=== PATIENT | female | born 1940 | race African-American/Black ===

== ENCOUNTER 2017-01-15 04:00 | Observation (INO) ==
[2017-01-15] MEDS ORDERED: SODIUM CHLORIDE 0.45% 1,000 ML IV SCH (15:30)
--- NOTE | 2017-01-15 17:14 | XRay Report ---
Exam: XR chest 2V Indication: Cardiomegaly, chest pain Comparison study: Prior chest radiograph 04/03/2013 Findings: Cardiac silhouette is enlarged, similar to prior. Minimal perihilar and basilar interstitial opacities are noted, which are decreased in prominence from prior but may represent residual atelectasis/scarring versus underlying interstitial edema changes. There is no significant pleural effusion. There is no focal consolidation. There is no pneumothorax. Degenerative changes are noted in both shoulders. There is no acute osseous abnormality. Impression: Similar cardiomegaly and findings suggestive of underlying interstitial scarring. No findings to suggest heart failure/interstitial edema. No definite focal consolidation. PROCEDURE INTERPRETED AT [facility] DEPARTMENT OF RADIOLOGY Final Report Signed by: Malvin Nicolas
[2017-01-15] MEDS ORDERED: MAGNESIUM HYDROXIDE SUSP 30 ML UDCUP PO ONE (18:07)
[2017-01-15] MEDS: MONTELUKAST 10 MG TABLET PO SCH (21:24)
[2017-01-15] MEDS: FERROUS SULFATE 325 MG TABLET PO SCH (21:24)
[2017-01-15] MEDS: METOCLOPRAMIDE 10 MG TABLET PO SCH (21:24)
[2017-01-15] MEDS: POTASSIUM CHLORIDE 20 MEQ TABLET PO SCH (21:24)
[2017-01-15] MEDS: CITRIC ACID/SODIUM CITRATE 30 ML UDCUP PO SCH (21:25)
[2017-01-16] MEDS: ALBUTEROL 2.5 MG/3 ML NEB RESP TX SCH ×4 (02:25→19:19)
[2017-01-16 05:10] LABS: Basophils % 0.2 % (0.0-0.8); Eosinophils # 0.1 10*3/uL (0.0-0.87); Hematocrit 26.3 VOL% (35.7-47.0); Hemoglobin 8.6 GM/DL (12.0-16.0); Immature Granulocytes % 0.2 %; Immature Granulocytes Absolute 0.01 #; Lymphocytes # 1.8 10*3/uL (1.4-4.0); Mean Corpuscular HGB Conc 32.7 GM/DL (32-36); Mean Corpuscular Hemoglobin 30 PG (27-34); Mean Corpuscular Volume 91.3 FL (87-102); Mean Platelet Volume 11.8 FL (9.6-12.0); Monocytes # 0.5 10*3/uL (0.11-0.8); Neutrophils % 61.6 % (38.7-73.9); Platelet Count 161 T/CUMM (130-400); Red Blood Count 2.88 MC/CUMM (3.8-5.5); Red Cell Distribution Width 17.8 % (9.3-17.3); White Blood Count 6.5 T/CUMM (4-12)
[2017-01-16 05:51] LABS: Calcium 9.6 MG/DL (8.5-10.1); Potassium 4.4 MMOL/L (3.5-5.1)
--- NOTE | 2017-01-16 06:29 | Event Note ---
Ms. Lynn was admitted electively last night for hydration in anticipation of left heart possible PCI today. She has new onset cardiomyopathy that I think is likely a combination of hypertension and atrial fibrillation with rapid ventricular response. We repeated labs after hydration her creatinine is stable but her hemoglobin and hematocrit have dropped significantly just since we last saw her. I think given this decline in hemoglobin hematocrit we probably should postpone the heart cath and work this up.
[2017-01-16] MEDS ORDERED: FUROSEMIDE 40 MG/4 ML VIAL IV ONE (06:31)
[2017-01-16] MEDS ORDERED: diphenhydrAMINE CAP 25 MG CAPSULE PO ONE (07:00)
[2017-01-16] MEDS ORDERED: DIAZEPAM 5 MG TABLET PO ONE (07:00)
[2017-01-16 07:21] LABS: % Iron Saturation 17.1 % (18-50); Ferritin 49.2 ng/ml (8-252)
[2017-01-16 08:02] LABS: Sedimentation Rate-Westergren 42 MM/HR (0-30)
--- NOTE | 2017-01-16 08:17 | EKG Report ---
Stationary ECG Study [facility] Test Date: 01/16/2017 7:11:45 AM Pat Name: HAYLEY DEAN Department: Room: 263 Gender: F Finance Attorney: PETRA : 1940 Requested by: Oracio Winkler Order Number: [id number] Reading MD: TULIO HAMMER Intervals [place] Rate: 65 P: 999 IA: 0 QRS: 12 QRSD: 157 T: -60 QT: 430 QTc: 442 Interpretive Statements ATRIAL FIBRILLATION INTRAVENTRICULAR CONDUCTION DELAY POSSIBLE LATERAL MYOCARDIAL INFARCTION, OF INDETERMINATE AGE Electronically Signed On 01-17-17 12:54:35 CDT by TULIO HAMMER [id number]
[2017-01-16] MEDS: POTASSIUM CHLORIDE 20 MEQ TABLET PO SCH ×2 (09:17→22:00)
[2017-01-16] MEDS: ALLOPURINOL 300 MG TABLET PO SCH (09:18)
[2017-01-16] MEDS: ASPIRIN EC 81 MG TABLET PO SCH (09:18)
[2017-01-16] MEDS: LISINOPRIL 20 MG TABLET PO SCH (09:18)
[2017-01-16] MEDS: METOCLOPRAMIDE 10 MG TABLET PO SCH ×2 (09:18→22:00)
[2017-01-16] MEDS: BISOPROLOL/HCTZ 5-6.25 MG TABLET PO SCH (09:18)
[2017-01-16] MEDS: FERROUS SULFATE 325 MG TABLET PO SCH ×2 (09:18→22:00)
[2017-01-16] MEDS: CITRIC ACID/SODIUM CITRATE 30 ML UDCUP PO SCH ×3 (09:19→22:01)
--- NOTE | 2017-01-16 09:44 | Gastrointestinal Consult Note ---
Assessment and Plan (1) Anemia Status: Acute Assessment and plan: 01/16-findings of drop in hemoglobin from baseline (unavailable at this time). Hemoglobin 8.6. No reports of overt bleeding. No prior history of GI bleeding. On Eliquis for recent onset A. fib. Obtain records from [place] for prior endoscopy. Obtain stool for occult blood. Give magnesium citrate for constipation. Plan an addendum to followed by Dr. Morrell. Current Visit: Yes History of Present Illness Chief complaint: Anemia History of present illness: Ms. Lynn is a 77 year old female who was admitted to the hospital electively initially for hydration in preparation for left heart PCI today. Patient is reported to have a new onset of cardiomyopathy as well as recent findings of atrial fibrillation and was going to proceed with heart catheterization this morning however on admission patient was found to have a drop in her hemoglobin. No records available at this time to review regarding baseline blood counts. Patient states she has no prior history of anemia in the past however she is noted to be on iron therapy. She states the only blood transfusion she has had in the past was after surgery. She denies any prior history of GI bleeding in the past. She denies any abdominal pain, nausea or vomiting. She does report that she has lost approximately 30-40 pounds over the last 4 months from decreased appetite. She also reports one episode of dark stools last week but states that these have cleared up since this time. She is noted to be on iron supplements as well as Eliquis which she states was started a month ago for her atrial fibrillation. She also has a history of renal insufficiency. She is noted to have a BUN/creatinine ratio of 27. Her last dose of Eliquis was on yesterday morning per patient. She states that she has never had upper endoscopy done in the past however she did have a colonoscopy done approximately 3 years ago at [place]. She denies any reflux, dysphagia, increased belching or bloating or dyspepsia. Denies any NSAIDs. She denies any nausea or vomiting. She states she has not had a bowel movement 4 days. Iron studies noted to be normal with a mild decrease in saturation is 17.1. Creatinine is noted at 2.6. Normal MCV. Home Medications Medication Instructions Recorded Confirmed Type Albuterol Sulfate 2.5 mg IH Q6HR 01/11/17 01/15/17 History Albuterol Sulfate [Proair HFA] 2 puff INH Q6H PRN 01/11/17 01/15/17 History Allopurinol 300 mg PO DAILY 01/11/17 01/15/17 History Apixaban [Eliquis] 2.5 mg PO BID 01/11/17 01/15/17 History Aspirin [Aspirin EC] 81 mg PO DAILY 01/11/17 01/15/17 History Bisoprol/Hydrochlorothiazide 1 each PO DAILY 01/11/17 01/15/17 History [Bisoprolol-Hctz 5-6.25 mg Tab] Ferrous Sulfate [Iron] 325 mg PO BID 01/11/17 01/15/17 History Furosemide Tab [Lasix Tab] 80 mg PO DAILY 01/11/17 01/15/17 History Lisinopril 20 mg PO DAILY 01/11/17 01/15/17 History Metoclopramide HCl 10 mg PO BID 01/11/17 01/15/17 History Montelukast Tab [Singulair Tab] 10 mg PO BEDTIME 01/11/17 01/15/17 History Potassium Chloride 20 meq PO BID 01/11/17 01/15/17 History hydrALAZINE TAB [Apresoline Tab] 50 mg PO BID 01/11/17 01/15/17 History Allergies Allergy/AdvReac Type Severity Reaction Status Date / Time doxycycline Allergy Severe RASH Unverified 01/11/17 12:07 Medical,Surgical,& Family Hx - Medical History Cardio: History of: Cardiac Dysrhythmia (AFIB), CHF, Hypertension, Cardiovascular Problems (DIASTOLIC DYSFUNCTION, CARDIOMYOPATHY,RBBB,) Neurology: History of: Cerebrovascular Accident Respiratory: History of: COPD Renal: History of: Renal Problems (RENAL INSUFFICIENCY) Gastrointestinal: History of: GERD Musculoskeletal: History of: Osteoporosis, Musculoskeletal Problems (SPINAL STENOSIS) Other: History of: Miscellaneous Medical Problems (GOUT, VENOUS INSUFFICIENCY OF BOTH LOWER EXTREMITIES) - Social History Smoking Status: Never smoker Frequency of Alcohol Use: None Type of Drug Use: None 12 point system: reviewed and no additional remarkable complaints except as stated - Constitutional Constitutional: Present: as per HPI, weight loss - EENT Eyes: Present: as per HPI Ears: Present: as per HPI Nose, mouth and throat: Present: as per HPI - Cardiovascular Cardiovascular: Present: as per HPI - Respiratory Respiratory: Present: as per HPI - Gastrointestinal Gastrointestinal: Present: as per HPI - Genitourinary Genitourinary: Present: as per HPI - Musculoskeletal Musculoskeletal: Present: as per HPI - Neurological Neurological: Present: as per HPI - Psychiatric Psychiatric: Present: as per HPI - Endocrine Endocrine: Present: as per HPI - Hematologic/Lymphatic Hematologic/Lymphatic: Present: as per HPI Exam - Constitutional Vitals: Period Temp Pulse Resp BP Sys/Marie Pulse Ox Last 24 Hr 97.0 F-97.6 F 62-113 16-20 123-150/60-80 96-100 General appearance: normal weight, no acute distress - Head Head exam: Present: normal inspection, normocephalic - Eye Eye exam: Present: other (Lids and conjunctive are unremarkable). Absent: scleral icterus - ENT ENT exam: Present: normal exam, normal oropharynx - Neck Neck exam: Present: normal inspection - Respiratory Respiratory exam: Present: clear to auscultation bilaterally. Absent: rales, rhonchi, wheezes - Cardiovascular Cardiovascular exam: Present: regular rate and rhythm. Absent: diastolic murmur , JVD, systolic murmur - GI/Abdominal GI/Abdominal exam: Present: normal bowel sounds, soft. Absent: ascites, distended, mass, organomegaly, tenderness - Extremities Exam Extremities exam: Present: normal inspection, full ROM - Back Exam Back exam: Present: normal inspection - Neurological Exam Neurological exam: Present: alert, oriented X3 - Psychiatric Psychiatric exam: Present: normal affect, normal mood - Skin Skin exam: Present: normal color, warm, dry Results - Labs CBC & BMP: 01/16/17 04:02 01/16/17 04:02 Lab Results: I have reviewed the past 24 hour labs
[2017-01-16] MEDS ORDERED: MAGNESIUM CITRATE 300 ML BOTTLE PO ONE (09:47)
--- NOTE | 2017-01-16 21:07 | Cardiology Progress Note ---
Assessment and Plan - Time spent with patient Time spent with patient: Greater than 30 minutes (1) Cardiomyopathy Status: Acute Assessment and plan: The patient was to have a heart cath but is been held because of decreased hematocrit, suggesting some GI bleed Plan/recommendation: Discontinue Eliquis GI [id number] GIs assessment Continue medication to control A. fib Will intermittently watch renal insufficiency Watch for any signs or symptoms of heart failure Eventually, after GI status is defined, would consider doing a heart cath The above was discussed with the patient. She voices understanding and agrees with the plan. Current Visit: Yes (2) Atrial fibrillation Status: Acute Current Visit: Yes (3) Chronic anticoagulation Status: Acute Current Visit: Yes (4) Overweight Status: Acute Current Visit: Yes (5) Chronic renal insufficiency, stage III (moderate) Status: Acute Current Visit: Yes (6) Anemia Status: Acute Current Visit: Yes Cardiology - PN: Subj Interval history: No chest pain or shortness of breath. Has not noted blood in the stool or black stool. Exam (Progress Note) - Constitutional Vitals: Period Temp Pulse Resp BP Sys/Marie Pulse Ox Last 24 Hr 97.0 F-98.4 F 62-95 16-20 107-125/55-75 97-100 Exam: HEENT: Pupils equal, reactive to light and accommodation Neck: NoJVD or bruit Lungs clear to auscultation Heart: Regular rhythm rate with normal S1 and S2. Apical S4 Abdomen: No hepatosplenomegaly Spine/extremities: No clubbing, cyanosis, or edema Neuro: Nonfocal Psych: No depression or anxiety Result/EKG - Labs CBC & BMP: 01/16/17 04:02 01/16/17 04:02 Lab Results: I have reviewed the past 24 hour labs Labs: Laboratory Results - last 24 hr 01/16/17 01/16/17 01/16/17 04:02 04:02 06:40 WBC 6.5 RBC 2.88 L Hgb 8.6 L Hct 26.3 L MCV 91.3 MCH 30 MCHC 32.7 RDW 17.8 H Plt Count 161 MPV 11.8 Neut % (Auto) 61.6 Lymph % (Auto) 28.0 Adams % (Auto) 8.0 Eos % (Auto) 2.0 Baso % (Auto) 0.2 Neut # (Auto) 4.0 Lymph # (Auto) 1.8 Adams # (Auto) 0.5 Eos # (Auto) 0.1 Baso # (Auto) 0.0 Immature Gran % 0.2 Nucleated RBC % 0.0 Immature Gran # 0.01 Nucleated RBCs # 0.00 ESR Westergren 42 H Absolute Retic 0.0 Percent Retic 1.4 Retic Hgb Equivalent 30.1 Sodium 143 Potassium 4.4 Chloride 104 Carbon Dioxide 30 Anion Gap 13.4 BUN 71 H Creatinine 2.60 H GFR Calculation 25 BUN/Creatinine Ratio 27.00 H Glucose 79 Calculated Osmolality 304.0 Calcium 9.6 Iron TIBC % Saturation Ferritin 01/16/17 06:40 WBC RBC Hgb Hct MCV MCH MCHC RDW Plt Count MPV Neut % (Auto) Lymph % (Auto) Adams % (Auto) Eos % (Auto) Baso % (Auto) Neut # (Auto) Lymph # (Auto) Adams # (Auto) Eos # (Auto) Baso # (Auto) Immature Gran % Nucleated RBC % Immature Gran # Nucleated RBCs # ESR Westergren Absolute Retic Percent Retic Retic Hgb Equivalent Sodium Potassium Chloride Carbon Dioxide Anion Gap BUN Creatinine GFR Calculation BUN/Creatinine Ratio Glucose Calculated Osmolality Calcium Iron 50 TIBC 292 % Saturation 17.1 L Ferritin 49.2
[2017-01-16] MEDS: MONTELUKAST 10 MG TABLET PO SCH (22:00)
[2017-01-17] MEDS: ALBUTEROL 2.5 MG/3 ML NEB RESP TX SCH ×4 (00:29→20:00)
[2017-01-17 09:40] LABS: Hematocrit 27.4 VOL% (35.7-47.0); Hemoglobin 8.6 GM/DL (12.0-16.0)
[2017-01-17] MEDS: CITRIC ACID/SODIUM CITRATE 30 ML UDCUP PO SCH ×3 (09:57→20:50)
--- NOTE | 2017-01-17 13:39 | History and Physical Update ---
History and Physical Update - History and Physical H&P was reviewed, the patient examined and there: are no changes in the patients condition since last H&P was completed. - Physical Exam Mental Status: alert and oriented Heart: regular rate and rhythm Lung: clear to auscultation Abdomen: within normal limits Vitals: within normal limits
--- NOTE | 2017-01-17 13:51 | Operative Note ---
Date of procedure: 01/17/17 Pre-op diagnosis: Anemia, GI bleed with melena Procedure: Procedure: Esophagogastroduodenoscopy with biopsies gastric ulcers Brief clinical abstract: Patient is a 77-year-old female who is had recent weakness and noted to be anemic. She describes recent black stools over the last week. She had documented occult blood in her stool. Indication for procedure: GI bleed with melena Endoscopic findings:[After informed consent was obtained, the patient was placed in the left lateral decubitus position. The gastroscope was inserted in the upper esophagus under direct vision with no resistance encountered. Esophageal mucosa appeared normal with squamocolumnar junction sharply demarcated above a small hiatal hernia 1 cm in length. The endoscope was advanced in the stomach which was carefully examined including retroflexed view of the cardia and fundus. In the gastric antrum there were 5 or 6 superficial white based ulcers ranging in size from 5 mm to 1 cm diameter. No visible vessel was associated with these and there was no mass-effect evident. Biopsies were obtained from the margin and base from several of the ulcers for pathologic examination. Remainder the stomach appeared normal. No blood was noted in the stomach. The pyloric channel, duodenal bulb, second and third portion of the duodenum were normal. The endoscope was withdrawn and patient appeared to tolerate the procedure well. Impression: #1 small hiatal hernia #2 multiple gastric antral ulcers-probable source of bleeding; appearance suggests low risk of active type bleeding Recommendations: Continue PPI therapy await pathology from above. Ask about nonsteroidal use and have her discontinue if taking. Anesthesia: MAC Surgeon / Physician: Jozef Morrell Estimated blood loss: minimal Specimens: other (Gastric ulcers) Condition: stable Disposition: post procedure unit Results - Labs CBC & BMP: 01/17/17 09:28 01/16/17 04:02 Discharge Plan - Discharge Medications No Action Albuterol Sulfate [Proair HFA] 2 puff INH Q6H PRN PRN Reason: Shortness Of Breath/Wheezing hydrALAZINE TAB [Apresoline Tab] 50 mg PO BID Potassium Chloride 20 meq PO BID Montelukast Tab [Singulair Tab] 10 mg PO BEDTIME Lisinopril 20 mg PO DAILY Furosemide Tab [Lasix Tab] 80 mg PO DAILY Ferrous Sulfate [Iron] 325 mg PO BID Aspirin [Aspirin EC] 81 mg PO DAILY Apixaban [Eliquis] 2.5 mg PO BID Allopurinol 300 mg PO DAILY Metoclopramide HCl 10 mg PO BID Bisoprol/Hydrochlorothiazide [Bisoprolol-Hctz 5-6.25 mg Tab] 1 each PO DAILY Albuterol Sulfate 2.5 mg IH Q6HR - Follow Up or Referral - Forms/Instructions
--- NOTE | 2017-01-17 13:54 | Anesthesia Post-Op ---
Anesthesia Post OP - Post Ansesthetic Evaluation Patient seen in post op: Yes Resp: within normal limits CV: within normal limits Mental: within normal limits Temp: within normal limits Ierd-[id number]-Wurgkqnff: within normal limits Nausea and Vomiting: within normal limits Pain: within normal limits
[2017-01-17] MEDS ORDERED: GLYCOPYRROLATE 0.4 MG/2 ML VIAL IV ONE ×2 (14:00)
[2017-01-17] MEDS ORDERED: ATROPINE 1 MG/10 ML SYRINGE IV ONE (14:15)
--- NOTE | 2017-01-17 14:36 | EKG Report ---
Stationary ECG Study [facility] Test Date: 01/17/2017 2:36:24 PM Pat Name: HAYLEY DEAN Department: Room: 263 Gender: F Pattern Clerk: : 1940 Requested by: Ibrahima Elizabeth Order Number: [id number] Reading MD: TULIO HAMMER Intervals [place] Rate: 43 P: 999 NC: 0 QRS: 54 QRSD: 165 T: -50 QT: 481 QTc: 427 Interpretive Statements UNCERTAIN REGULAR RHYTHM INTRAVENTRICULAR CONDUCTION DELAY Electronically Signed On 01-18-17 17:06:22 CDT by TULIO HAMMER [id number]
[2017-01-17] MEDS: METOCLOPRAMIDE 10 MG TABLET PO SCH ×2 (15:07→20:49)
[2017-01-17] MEDS: BISOPROLOL/HCTZ 5-6.25 MG TABLET PO SCH (15:07)
[2017-01-17] MEDS: LISINOPRIL 20 MG TABLET PO SCH (15:07)
[2017-01-17] MEDS: ASPIRIN EC 81 MG TABLET PO SCH (15:26)
[2017-01-17] MEDS: ALLOPURINOL 300 MG TABLET PO SCH (15:27)
[2017-01-17] MEDS: FERROUS SULFATE 325 MG TABLET PO SCH ×2 (15:27→20:49)
[2017-01-17] MEDS: POTASSIUM CHLORIDE 20 MEQ TABLET PO SCH ×2 (15:27→20:49)
--- NOTE | 2017-01-17 16:55 | Cardiology Progress Note ---
Assessment and Plan - Time spent with patient Time spent with patient: Less than 30 minutes (1) Cardiomyopathy Status: Acute Assessment and plan: See plan of care listed below. Current Visit: Yes (2) Atrial fibrillation Status: Chronic Assessment and plan: See plan of care listed below. Current Visit: Yes Qualifiers: Atrial fibrillation type: persistent Qualified Code(s): I48.1 - Persistent atrial fibrillation (3) Chronic anticoagulation Status: Chronic Assessment and plan: See plan of care listed below. Current Visit: Yes (4) Overweight Status: Chronic Assessment and plan: See plan of care listed below. Current Visit: Yes (5) Chronic renal insufficiency, stage III (moderate) Status: Acute Assessment and plan: See plan of care listed below. Current Visit: Yes (6) Anemia Status: Acute Assessment and plan: See plan of care listed below. Current Visit: Yes (7) GI bleed Status: Acute Assessment and plan: See plan of care listed below. Current Visit: Yes Cardiology - PN: Subj Interval history: PEST CONTROL SERVICE TECHNICIAN: DR. KENYON PCP: DR. BLUE Ms. Lynn is a 77 year old female who was admitted on 01/15/17 electively for hydration in anticipation of left heart cath with possible PCI on 01/16/17. She has new onset cardiomyopathy, likely a combination of hypertension and atrial fibrillation with RVR. Lab work was repeated and she was found to have a significant drop in her H&H. Her cath was postponed and GI was consulted. She underwent EGD today with Dr. Morrell and was found to have a small hiatal hernia and multiple gastric antral ulcers that is suspected to be the probable source of bleeding although the appearance suggests a low risk of active type bleeding. She had an episode of profound bradycardia during EGD today. This could possibly have been a vasovagal response to sedation. We have cut back her beta merissa and will continue to monitor. She is currently asymptomatic with rates in the 40s-50s. Blood pressure is well controlled. ASSESSMENT/PLAN: 1. CARDIOMYOPATHY - Would eventually need to pursue cardiac catheterization to further define her coronary anatomy. 2. ATRIAL FIBRILLATION - This appears to be chronic in nature. She has been on chronic anticoagulation which is being held due to her anemia. Will continue rate control medications. 3. CHRONIC ANTICOAGULATION - On hold due to recent GI bleed with melena. 4. OVERWEIGHT - Chronic. 5. CHRONIC RENAL INSUFFICIENCY, STAGE III - Chronic. Creatinine 2.6. 6. ANEMIA - Eliquis has been stopped. Will continue to hold. 7. GI BLEED - GI has been following. EGD revealed small hiatal hernia and multiple gastric antral ulcers that is suspected to be the probable source of bleeding although the appearance suggests a low risk of active type bleeding. It is recommended we continue PPI therapy and await pathology. It is also recommended she discontinue NSAID use. Exam (Progress Note) - Constitutional Vitals: Period Temp Pulse Resp BP Sys/Marie Pulse Ox Last 24 Hr 96.8 F-98.6 F 35-97 11-21 83-133/35-64 95-100 Exam: General: Present: Appears Well, No Apparent Distress. Pleasant and cooperative. Appears comfortable. HEENT: Present: PERRL, Normocephaly, atraumatic. Mucus Membranes Moist. No jaundice noted. Conjunctiva moist and clear, sclerae anicteric Neck: Present: Supple Neck, Midline Trachea, No Masses, No Bruit, No tenderness Cardiac: Present: Regular Rate and Rhythm, Systolic Murmur, apical S4. Lungs: Present: Clear to auscultation bilaterally, no wheeze, rhonchi, rales. Neuro: Present: Awake, alert, and oriented x3. Moves all extremities well without hemiparesis or paralysis. Grossly Intact. Absent: Resting Tremor, Essential Tremor Abdomen: Present: Soft, Active Bowel Sounds, No Masses, Non-Tender, nondistended. No abdominal bruit or thrill noted. Skin: Present: Clear. Absent: Rash, No skin breakdown. Back: Normal inspection, no vertebral tenderness. Musculoskeletal: Present: No Fluid Collection, No Pain, Normal Range of Motion Extremities: Present: Normal Gait, No Clubbing, No Cyanosis, Upper Extr. Pulses 2+, Lower Extr. Pulses 2+, 3-4+ pitting edema to BLE. Capillary refill less than 3 seconds. Result/EKG - Labs CBC & BMP: 01/17/17 09:28 01/16/17 04:02 Lab Results: I have reviewed the past 24 hour labs Labs: Laboratory Results - last 24 hr 01/17/17 09:28 Hgb 8.6 L Hct 27.4 L - EKG EKG results: interpreted by me EKG shows: bradycardia, atrial fibrillation
[2017-01-17] MEDS: MONTELUKAST 10 MG TABLET PO SCH (20:49)
[2017-01-18] MEDS: ALBUTEROL 2.5 MG/3 ML NEB RESP TX SCH ×3 (00:36→14:00)
[2017-01-18 04:42] LABS: Basophils % 0.4 % (0.0-0.8); Eosinophils # 0.2 10*3/uL (0.0-0.87); Hematocrit 26.5 VOL% (35.7-47.0); Hemoglobin 8.3 GM/DL (12.0-16.0); Immature Granulocytes % 0.2 %; Immature Granulocytes Absolute 0.01 #; Lymphocytes # 1.3 10*3/uL (1.4-4.0); Lymphocytes % 28.2 % (21.3-54.2); Mean Corpuscular HGB Conc 31.3 GM/DL (32-36); Mean Corpuscular Hemoglobin 30 PG (27-34); Mean Corpuscular Volume 95.3 FL (87-102); Monocytes # 0.5 10*3/uL (0.11-0.8); Monocytes % 11.2 % (1.7-12.7); Neutrophils # 2.5 10*3/uL (1.4-7.4); Platelet Count 132 T/CUMM (130-400); Red Blood Count 2.78 MC/CUMM (3.8-5.5); Red Cell Distribution Width 17.6 % (9.3-17.3); White Blood Count 4.5 T/CUMM (4-12)
[2017-01-18 05:08] LABS: Calcium 9.5 MG/DL (8.5-10.1); Magnesium 2.8 MG/DL (1.8-2.4); Osmolality,Calculated 300.1 MOS/KG (273-304); Potassium 4.7 MMOL/L (3.5-5.1); Risk Ratio 2.23; VLDL CHOLESTEROL 9.6 MG/DL
[2017-01-18] MEDS ORDERED: BISOPROLOL/HCTZ 5-6.25 MG TABLET PO SCH (09:00)
[2017-01-18] MEDS: ALLOPURINOL 300 MG TABLET PO SCH (09:32)
[2017-01-18] MEDS: LISINOPRIL 20 MG TABLET PO SCH (09:32)
[2017-01-18] MEDS: METOCLOPRAMIDE 10 MG TABLET PO SCH (09:32)
[2017-01-18] MEDS: FERROUS SULFATE 325 MG TABLET PO SCH (09:32)
[2017-01-18] MEDS: ASPIRIN EC 81 MG TABLET PO SCH (09:32)
[2017-01-18] MEDS: POTASSIUM CHLORIDE 20 MEQ TABLET PO SCH (09:32)
[2017-01-18] MEDS: CITRIC ACID/SODIUM CITRATE 30 ML UDCUP PO SCH (09:33)
--- NOTE | 2017-01-18 10:48 | Gastrointestinal Progress Note ---
Assessment and Plan (1) Anemia Status: Acute Assessment and plan: 01/18-EGD findings noted. Hemoglobin stable at 8.3. No overt bleeding. Tolerating diet. Plan an addendum to followed by Dr. Morrell. 01/16-findings of drop in hemoglobin from baseline (unavailable at this time). Hemoglobin 8.6. No reports of overt bleeding. No prior history of GI bleeding. On Eliquis for recent onset A. fib. Obtain records from [place] for prior endoscopy. Obtain stool for occult blood. Give magnesium citrate for constipation. Plan an addendum to followed by Dr. Morrell. Current Visit: Yes Gastroenterology - PN: Subj Interval history: CC: Anemia, melena Patient is seen awake and alert eating breakfast. States she had an uneventful night. She denies any overt bleeding. Denies any abdominal pain, nausea or vomiting. Her hemoglobin remained stable at 8.3. EGD on yesterday with findings noted of small hiatal hernia and multiple gastric antral ulcers as probable source of bleeding. Abdomen is soft, nontender. ROS: Denies shortness of breath or chest pain Exam (Progress Note) - Constitutional Vitals: Period Temp Pulse Resp BP Sys/Marie Pulse Ox Last 24 Hr 96.7 F-98.6 F 35-89 11-65 83-122/35-69 95-100 - Other Additional findings: General appearance: normal weight, no acute distress - Head Head exam: Present: normal inspection, normocephalic - Eye Eye exam: Present: other (Lids and conjunctive are unremarkable). Absent: scleral icterus - ENT ENT exam: Present: normal exam, normal oropharynx - Neck Neck exam: Present: normal inspection - Respiratory Respiratory exam: Present: clear to auscultation bilaterally. Absent: rales, rhonchi, wheezes - Cardiovascular Cardiovascular exam: Present: regular rate and rhythm. Absent: diastolic murmur , JVD, systolic murmur - GI/Abdominal GI/Abdominal exam: Present: normal bowel sounds, soft. Absent: ascites, distended, mass, organomegaly, tenderness - Extremities Exam Extremities exam: Present: normal inspection, full ROM - Back Exam Back exam: Present: normal inspection - Neurological Exam Neurological exam: Present: alert, oriented X3 - Psychiatric Psychiatric exam: Present: normal affect, normal mood - Skin Skin exam: Present: normal color, warm, dry Results - Labs CBC & BMP: 01/18/17 04:23 01/18/17 04:23 Lab Results: I have reviewed the past 24 hour labs
[2017-01-18] MEDS ORDERED: PANTOPRAZOLE 40 MG TABLET PO SCH (11:00)
--- NOTE | 2017-01-18 11:24 | Pathology Report from [facility] ---
[facility] ACCESSION # : [id number] PATIENT NAME : Hayley Lynn ORDERING DR : ELEONORA MCCARTNEY MD CLINICAL HX: Anemia - Positive stool for occult blood POST-OP DX: Ulceratoin SPECIMEN INFO: Gastric biopsy GROSS DESCRIPTION: The specimen is received in formalin labeled with the patients name and consists of two martinez tissue fragments measuring 0.8 x 0.2 cm collectively. Submitted in one cassette. DIAGNOSIS FOR HAYLEY LYNN: GASTRIC BIOPSIES: Marked chronic antral gastritis, active with ulceration. Special stain POSITIVE for H. pylori. COLLECTED DATE: 01/17/2017 [facility] REPORT DATE: 01/18/2017 ELECTRONICALLY SIGNED BY: Collins Martin M.D. 01/18/2017 - 9:51:15 MTDD
[2017-01-18 11:26] VITALS: BP 120/58
[2017-01-18] MEDS ORDERED: LIDOCAINE 2% 5 ML VIAL ONE (13:36)
[2017-01-18] MEDS ORDERED: ATROPINE 0.4 MG/1 ML VIAL ONE (13:36)
[2017-01-18] MEDS ORDERED: PROPOFOL 200 MG/20 ML VIAL IV ONE (13:36)
[2017-01-18] MEDS ORDERED: GLYCOPYRROLATE 0.4 MG/2 ML VIAL ONE (13:36)
--- NOTE | 2017-01-18 14:52 | Discharge Summary ---
Hospital Course - Hospital Course Hospital Course: PULMONARY FELLOW: DR. KENYON PCP: DR. BLUE Ms. Lynn is a 77 year old female who was admitted on 01/15/17 electively for hydration in anticipation of left heart cath with possible PCI on 01/16/17. She has new onset cardiomyopathy, likely a combination of hypertension and atrial fibrillation with RVR. Lab work was repeated on admission and she was found to have a significant drop in her H&H. Her cath was postponed and GI was consulted. She underwent EGD on 01/17/[address] Morrell and was found to have a small hiatal hernia and multiple gastric antral ulcers that is suspected to be the probable source of bleeding although the appearance suggests a low risk of active type bleeding. She has been placed on a proton pump inhibitor. During her EGD she had an episode of profound bradycardia. It is felt like this was probably a vasovagal response due to pain after the scope. Her beta-merissa dosage was decreased. She did well throughout the night and today. At this time, we will postpone her heart cath and let her follow-up with Dr. Kenyon to discuss rescheduling this. Her H&H is still on the low side but she has been hemodynamically stable. She will follow-up with Dr. Kenyon in 2-3 weeks with CBC, CMP. She has been instructed to watch for any signs of bleeding. She will also be instructed to monitor her heart rate and blood pressure upon discharge and bring this log to her follow-up appointment with Dr. Kenyon. If her heart rate is staying consistently in the 50s or below, she is to contact her patent searcher. Her blood pressure has been well controlled, but we have been holding off on giving her Lasix. She has chronic BLE edema and will need to go home on Lasix; however, we will change her dose to 40mg PO BID and have her hold this if her blood pressure is below 110/70. I have discussed this plan with Ms. Lynn and her family who are present and they have verbalized understanding. At this time, she has met criteria for discharge and is anxious to go home. - Time spent with patient Time with patient DS: Less than 30 minutes Diagnosis - Discharge Diagnosis (1) Cardiomyopathy Status: Acute (2) Atrial fibrillation Status: Chronic (3) Chronic anticoagulation Status: Chronic (4) Overweight Status: Chronic (5) Chronic renal insufficiency, stage III (moderate) Status: Chronic (6) Anemia Status: Acute (7) GI bleed Status: Resolved Specialty Discharge - Follow Up or Referrals Follow up with: Beth Kenyon DO [Physician] - 2 Weeks (Follow up with Dr. Kenyon in 2-3 weeks with CBC and CMP. ) Discharge Plan - Discharge Data Disposition: Disch To Home/Self Care Condition at Discharge: Stable Discharge Diet: heart healthy Activity: resume usual activities as tolerated Hygiene: no restrictions Weight Bearing at Discharge: full weight bearing Driving: no restrictions Contact your physician if you experience:: fever over 101, Difficulty voiding, Redness or swelling, Nausea/Vomiting, Shortness of breath, Bleeding, pain uncontrolled by pain medications - Discharge Medications New Pantoprazole Tab [Protonix Tab] 40 mg PO DAILY #30 tablet Citric Acid/Sodium Citrate [Bicitra] 30 ml PO TID #1 bottle Continue Albuterol Sulfate [Proair HFA] 2 puff INH Q6H PRN PRN Reason: Shortness Of Breath/Wheezing hydrALAZINE TAB [Apresoline Tab] 50 mg PO BID Potassium Chloride 20 meq PO BID Montelukast Tab [Singulair Tab] 10 mg PO BEDTIME Lisinopril 20 mg PO DAILY Ferrous Sulfate [Iron] 325 mg PO BID Aspirin [Aspirin EC] 81 mg PO DAILY Allopurinol 300 mg PO DAILY Metoclopramide HCl 10 mg PO BID Albuterol Sulfate 2.5 mg IH Q6HR Changed Bisoprol/Hydrochlorothiazide [Bisoprolol-Hctz 5-6.25 mg Tab] 0.5 tablet PO DAILY #0 Furosemide Tab [Lasix Tab] 40 mg PO BID #0 Discontinued Apixaban [Eliquis] 2.5 mg PO BID - Follow Up or Referral - Forms/Instructions Exam - Constitutional Vitals: Period Temp Pulse Resp BP Sys/Marie Pulse Ox Last 24 Hr 96.7 F-97.5 F 41-85 16-65 96-122/57-69 96-100 Exam: General: Present: Appears Well, No Apparent Distress. Pleasant and cooperative. Appears comfortable. HEENT: Present: PERRL, Normocephaly, atraumatic. Mucus Membranes Moist. No jaundice noted. Conjunctiva moist and clear, sclerae anicteric Neck: Present: Supple Neck, Midline Trachea, No Masses, No Bruit, No tenderness Cardiac: Present: Regular Rate and Rhythm, Systolic Murmur, apical S4. Lungs: Present: Clear to auscultation bilaterally, no wheeze, rhonchi, rales. Neuro: Present: Awake, alert, and oriented x3. Moves all extremities well without hemiparesis or paralysis. Grossly Intact. Absent: Resting Tremor, Essential Tremor Abdomen: Present: Soft, Active Bowel Sounds, No Masses, Non-Tender, nondistended. No abdominal bruit or thrill noted. Skin: Present: Clear. Absent: Rash, No skin breakdown. Back: Normal inspection, no vertebral tenderness. Musculoskeletal: Present: No Fluid Collection, No Pain, Normal Range of Motion Extremities: Present: Normal Gait, No Clubbing, No Cyanosis, Upper Extr. Pulses 2+, Lower Extr. Pulses 2+, 3+ pitting edema to BLE. Capillary refill less than 3 seconds. Discharge Results Procedures and tests throughout hospitalization: Pending Orders 01/16/17 Occult Blood, Stool Routine 01/19/17 04:00 BMP w/ Mg [Basic Metabolic Panel w/Mg] IN AM CBC [Comp Blood Count Auto Diff] IN AM 01/20/17 04:00 BMP w/ Mg [Basic Metabolic Panel w/Mg] IN AM CBC [Comp Blood Count Auto Diff] IN AM Date of procedure: 01/17/17 Procedure: Esophagogastroduodenoscopy with biopsies gastric ulcers Impression: #1 small hiatal hernia #2 multiple gastric antral ulcers-probable source of bleeding; appearance suggests low risk of active type bleeding Recommendations: Continue PPI therapy await pathology from above. Ask about nonsteroidal use and have her discontinue if taking. Labs on day of discharge: Labs from last 24 hours 01/18/17 01/18/17 01/18/17 11:13 04:23 04:23 WBC 4.5 D RBC 2.78 L Hgb 8.3 L Hct 26.5 L MCV 95.3 MCH 30 MCHC 31.3 L RDW 17.6 H Plt Count 132 MPV 11.0 Neut % (Auto) 56.0 Lymph % (Auto) 28.2 Vance % (Auto) 11.2 Eos % (Auto) 4.0 Baso % (Auto) 0.4 Neut # (Auto) 2.5 Lymph # (Auto) 1.3 L Vance # (Auto) 0.5 Eos # (Auto) 0.2 Baso # (Auto) 0.0 Immature Gran % 0.2 Nucleated RBC % 0.0 Immature Gran # 0.01 Nucleated RBCs # 0.00 Sodium 142 Potassium 4.7 Chloride 103 Carbon Dioxide 32 Anion Gap 11.7 BUN 65 H Creatinine 2.20 H GFR Calculation 31 BUN/Creatinine Ratio 29.00 H Glucose 87 POC Glucose 111 H Calculated Osmolality 300.1 Calcium 9.5 Magnesium 2.8 H Triglycerides 48 Cholesterol 181 LDL Cholesterol 95.0 VLDL Cholesterol 9.6 HDL Cholesterol 81 H Heart Disease Risk Ratio 2.23 DS: Provider Date of admission: 01/15/17 15:18 Primary care physician: . No PCP Attending physician on admission: Beth Kenyon DO Consults: 01/16/17 06:45 Consult to Physician [CONS] Routine Comment: anemia, multifactorial Consulting Provider: Jozef Morrell Consult to Specialist Group: Gastroenterology Person Notified: ONDElvin Date Notified: 01/16/17 Time Notified: 09:15 Discharging clinician: DAVID Adams Expected date of discharge: 01/18/17
== END 2017-01-18 16:04 | disposition home or self-care (01) ==
LOC: N.TELES 15:18 → INTOOBSV 15:18
PROVIDERS: ADMIT Internal Medicine Cardiovascular Disease; ATTEND Internal Medicine Cardiovascular Disease

== ENCOUNTER 2017-01-26 14:46 | Inpatient (IN) ==
[2017-01-26] MEDS ORDERED: ONDANSETRON 4 MG/2 ML VIAL IV PRN ×2 (14:55→14:57)
[2017-01-26] MEDS ORDERED: ZALEPLON 5 MG CAPSULE PO PRN ×2 (14:55→14:57)
[2017-01-26] MEDS ORDERED: MAGNESIUM SULF RIDER 2 GM in PREMIX 1 EACH IV PRN (14:57)
[2017-01-26] MEDS ORDERED: diphenhydrAMINE CAP 25 MG CAPSULE PO PRN (14:57)
[2017-01-26] MEDS ORDERED: MAGNESIUM SULF RIDER 4 GM in PREMIX 1 EACH IV PRN (14:57)
[2017-01-26] MEDS ORDERED: BISACODYL 5 MG TABLET PO PRN (14:57)
--- NOTE | 2017-01-26 16:14 | EKG Report ---
Stationary ECG Study [facility] Test Date: 01/26/2017 4:14:56 PM Pat Name: HAYLEY DEAN Department: Room: 266 Gender: F Car Racer: CONSTANTINO : 1940 Requested by: Oracio Winkler Order Number: [id number] Reading MD: JOLIE NORTH Intervals [place] Rate: 82 P: 999 MT: 0 QRS: -15 QRSD: 160 T: -53 QT: 397 QTc: 435 Interpretive Statements ATRIAL FIBRILLATION RIGHT BUNDLE BRANCH BLOCK MODERATE T-WAVE ABNORMALITY, CONSIDER LATERAL ISCHEMIA Electronically Signed On 01-27-17 15:29:24 CDT by JOLIE NORTH [email or web address]
[2017-01-26] MEDS: METOCLOPRAMIDE 5 MG TABLET PO SCH (16:38)
[2017-01-26] MEDS: FUROSEMIDE 40 MG/4 ML VIAL IV SCH (16:38)
[2017-01-26 16:58] LABS: Basophils % 0.2 % (0.0-0.8); Eosinophils # 0.1 10*3/uL (0.0-0.87); Eosinophils % 2.9 % (0.00-10.9); Hematocrit 26.4 VOL% (35.7-47.0); Hemoglobin 8.4 GM/DL (12.0-16.0); Immature Granulocytes % 0.2 %; Immature Granulocytes Absolute 0.01 #; Lymphocytes # 1.1 10*3/uL (1.4-4.0); Lymphocytes % 22.9 % (21.3-54.2); Mean Corpuscular HGB Conc 31.8 GM/DL (32-36); Mean Corpuscular Hemoglobin 30 PG (27-34); Mean Platelet Volume 11.9 FL (9.6-12.0); Monocytes # 0.5 10*3/uL (0.11-0.8); Monocytes % 9.4 % (1.7-12.7); Neutrophils # 3.1 10*3/uL (1.4-7.4); Neutrophils % 64.4 % (38.7-73.9); Platelet Count 131 T/CUMM (130-400); Red Blood Count 2.81 MC/CUMM (3.8-5.5); Red Cell Distribution Width 17.6 % (9.3-17.3); White Blood Count 4.8 T/CUMM (4-12)
[2017-01-26 17:13] LABS: Calcium 9.9 MG/DL (8.5-10.1); Magnesium 2.3 MG/DL (1.8-2.4); Osmolality,Calculated 285.4 MOS/KG (273-304); Potassium 3.9 MMOL/L (3.5-5.1)
[2017-01-26 17:16] LABS: Albumin 3.3 G/DL (3.4-5.0); Bilirubin,Direct 0.5 MG/DL (0.0-0.20); Bilirubin,Indirect 0.5 MG/DL (0.0-1.0); Total Protein 6.3 G/DL (6.4-8.3)
--- NOTE | 2017-01-26 18:13 | Ultrasound Report ---
Exam: US renal Bilateral Date: 01/26/2017 3:02 PM Indication: Acute renal failure Comparison: None Findings: Right kidney. 10.8 x 5.5 x 5.9 cm. Increased echogenicity is present. No obstruction present Left kidney. 9.1 x 5.5 x 6.3 cm. Increased echogenicity is present. No obstructive present. Impression: 1. Medical renal disease in the kidneys without obstructive uropathy bilaterally Ultrasound images were stored and captured PROCEDURE INTERPRETED AT [facility] DEPARTMENT OF RADIOLOGY Final Report Signed by: Dr. Jozef Dimas
[2017-01-26 18:47] LABS: Apearance,Urine CLEAR (Clear); Bilirubin,Urine Negative (Negative); Blood, Urine Negative (Negative); Glucose,Urine (UA) Negative (Negative); Ketones,Urine Negative (Negative); Nitrite,Urine Negative (Negative); Protein,Urine Negative; Squamous Epithelial Cell,Urine Occasional /HPF (0-10); Urine Color Straw (Yellow); Urine Specific Gravity 1.004 (1.001-1.035); Urine Urobilinogen < 2.0 EU/DL (0.2-1.0)
--- NOTE | 2017-01-26 18:47 | XRay Report ---
Exam: XR chest 2V Date: 01/26/2017 2:57 PM Indication: ADHF Comparison: None Technical: PA lateral Findings: Cardiomegaly is present. External cardiac leads are present. No obvious effusion. Degenerative change present thoracic spine. There is ossification of the costochondral cartilages. No pneumothorax. Impression: 1. Cardiomegaly without overt decompensation. PROCEDURE INTERPRETED AT [facility] DEPARTMENT OF RADIOLOGY Final Report Signed by: Dr. Jozef Dimas
[2017-01-26] MEDS: ALBUTEROL 0.63 MG/3 ML NEB RESP TX SCH (20:18)
[2017-01-26] MEDS: FERROUS SULFATE 325 MG TABLET PO SCH (20:22)
[2017-01-26] MEDS: CARVEDILOL 3.125 MG TABLET PO SCH (20:22)
[2017-01-26] MEDS: DOCUSATE SODIUM 100 MG CAPSULE PO SCH (20:22)
[2017-01-26] MEDS: POTASSIUM CHLORIDE 20 MEQ TABLET PO SCH (20:22)
[2017-01-26] MEDS: CITRIC ACID/SODIUM CITRATE 30 ML UDCUP PO SCH (21:55)
[2017-01-27] MEDS: ALBUTEROL 0.63 MG/3 ML NEB RESP TX SCH ×6 (00:54→23:07)
[2017-01-27 04:05] LABS: Basophils % 0.2 % (0.0-0.8); Eosinophils # 0.2 10*3/uL (0.0-0.87); Eosinophils % 4.7 % (0.00-10.9); Hemoglobin 8.2 GM/DL (12.0-16.0); Immature Granulocytes % 0.2 %; Immature Granulocytes Absolute 0.01 #; Lymphocytes # 0.9 10*3/uL (1.4-4.0); Lymphocytes % 19.5 % (21.3-54.2); Mean Corpuscular HGB Conc 32.8 GM/DL (32-36); Mean Corpuscular Hemoglobin 30 PG (27-34); Mean Corpuscular Volume 92.3 FL (87-102); Mean Platelet Volume 11.9 FL (9.6-12.0); Monocytes # 0.5 10*3/uL (0.11-0.8); Monocytes % 11.2 % (1.7-12.7); Neutrophils # 2.9 10*3/uL (1.4-7.4); Neutrophils % 64.2 % (38.7-73.9); Platelet Count 128 T/CUMM (130-400); Red Blood Count 2.71 MC/CUMM (3.8-5.5); Red Cell Distribution Width 17.7 % (9.3-17.3); White Blood Count 4.5 T/CUMM (4-12)
[2017-01-27 04:29] LABS: Bilirubin,Total 1.5 MG/DL (0.2-1.0); Calcium 9.4 MG/DL (8.5-10.1); Osmolality,Calculated 290.1 MOS/KG (273-304); Potassium 4.1 MMOL/L (3.5-5.1); Total Protein 5.8 G/DL (6.4-8.3)
[2017-01-27] MEDS ORDERED: ASPIRIN EC 81 MG TABLET PO SCH (09:00)
[2017-01-27] MEDS ORDERED: PANTOPRAZOLE 40 MG TABLET PO SCH ×2 (09:00)
[2017-01-27] MEDS: FUROSEMIDE 40 MG/4 ML VIAL IV SCH ×2 (10:34→17:11)
[2017-01-27] MEDS: LISINOPRIL 20 MG TABLET PO SCH (10:37)
[2017-01-27] MEDS: METOCLOPRAMIDE 5 MG TABLET PO SCH ×3 (10:37→17:10)
[2017-01-27] MEDS: ALLOPURINOL 300 MG TABLET PO SCH (10:37)
[2017-01-27] MEDS: FERROUS SULFATE 325 MG TABLET PO SCH ×2 (10:37→21:02)
[2017-01-27] MEDS: POTASSIUM CHLORIDE 20 MEQ TABLET PO SCH ×2 (10:38→21:02)
[2017-01-27] MEDS: DOCUSATE SODIUM 100 MG CAPSULE PO SCH ×2 (10:38→21:02)
[2017-01-27] MEDS: CARVEDILOL 3.125 MG TABLET PO SCH ×2 (10:39→21:02)
[2017-01-27] MEDS: CITRIC ACID/SODIUM CITRATE 30 ML UDCUP PO SCH ×3 (10:46→21:03)
--- NOTE | 2017-01-27 11:27 | Cardiology Progress Note ---
<Kayla López E - Last Filed: 01/27/17 11:46> Assessment and Plan - Time spent with patient Time spent with patient: Less than 30 minutes (1) Acute systolic CHF (congestive heart failure) Status: Acute Assessment and plan: See plan of care listed below. Current Visit: Yes (2) Cardiomyopathy Status: Chronic Assessment and plan: See plan of care listed below. Current Visit: No (3) Atrial fibrillation Status: Chronic Assessment and plan: See plan of care listed below. Current Visit: No Qualifiers: Atrial fibrillation type: persistent Qualified Code(s): I48.1 - Persistent atrial fibrillation (4) Chronic renal insufficiency Status: Acute Assessment and plan: See plan of care listed below. Current Visit: No (5) Anemia Status: Acute Assessment and plan: See plan of care listed below. Current Visit: No (6) COPD (chronic obstructive pulmonary disease) Status: Chronic Assessment and plan: See plan of care listed below. Current Visit: Yes (7) GERD (gastroesophageal reflux disease) Status: Chronic Assessment and plan: See plan of care listed below. Current Visit: Yes (8) Obesity Status: Chronic Assessment and plan: See plan of care listed below. Current Visit: Yes Cardiology - PN: Subj Interval history: Car Hostler: Dr. Monaco PCP: Dr. Donovan Ms. Lynn is a 77-year-old -[place] female with history of persistent atrial fibrillation, cardiomyopathy, diastolic dysfunction, hypertension, prior ischemic stroke, chronic renal insufficiency, bilateral lower extremity venous insufficiency, gout, obesity, COPD, systolic CHF, GERD. Risk factors are significant for: Hypertension, obesity, sedentary lifestyle. She was previously admitted to the hospital on 01/15/17 with anticipation of renal prophylactic saline gently before [facility] on 01/16/17 but was found to be profoundly anemic. Her cath was cancelled and she was found to have multiple antral gastric ulcers and a hiatal hernia. She returned to Dr. Monaco's clinic for follow up on 01/26/17 with dyspnea and edema. She reported 2 pillow orthopnea and difficulty moving her legs due to the heaviness from her edema. She was admitted to the hospital from clinic for diuresis and further workup and treatment of acutely decompensated heart failure and evaluation of worsening anemia with epistaxis. ASSESSMENT/PLAN: 1. ACUTE SYSTOLIC CHF -continue diuretic therapy. Continue beta-merissa and SONAL inhibitor. Nephrology has been consulted for their input regarding her renal insufficiency. 2. CARDIOMYOPATHY, UNSPECIFIED -echocardiogram done 12/08/2016 revealed EF 35%, grade 3 diastolic dysfunction, severe LVH, moderate to severe mitral regurgitation, mild aortic insufficiency, moderate pulmonic regurgitation, and moderate to severe tricuspid regurgitation. She was also noted to have evidence of pulmonary hypertension with PAP 65 mmHg. 3. PERSISTENT ATRIAL FIBRILLATION - She is currently rate controlled. Continue Coreg 3.125mg PO BID. Chronic anticoagulation was previously discontinued due to profound anemia and she continues to be a poor candidate for anticoagulation. 4. CHRONIC RENAL INSUFFICIENCY - Will consult Nephrology for their input. 5. ANEMIA - Will check anemia profile for worsening H&H. Will recheck hemoccult stool. Patient may require blood transfusion if H&H continues to drop. 6. COPD - Continue O2 and breathing treatments PRN. 7. GERD - Continue PPI. 8. OBESITY - Chronic. Dr. Walters to follow with further plan and addendum. Exam (Progress Note) - Constitutional Vitals: Period Temp Pulse Resp BP Sys/Marie Pulse Ox Last 24 Hr 97.3 F-98 F 60-98 17-20 108-154/58-95 91-98 Exam: General: Present: Appears Well, No Apparent Distress. Pleasant and cooperative. Appears comfortable. HEENT: Present: PERRL, Normocephaly, atraumatic. Mucus Membranes Moist. No jaundice noted. Conjunctiva moist and clear, sclerae anicteric Neck: Present: Supple Neck, Midline Trachea, No Masses, No Bruit, No tenderness Cardiac: Present: Regular Rate and Rhythm, Systolic Murmur, no chest wall tenderness Lungs: Present: Few rales noted to left lower lobe, otherwise clear to auscultation. no wheeze, rhonchi. Neuro: Present: Awake, alert, and oriented x3. Moves all extremities well without hemiparesis or paralysis. Grossly Intact. Absent: Resting Tremor, Essential Tremor Abdomen: Present: Soft, Active Bowel Sounds, No Masses, Non-Tender, nondistended. No abdominal bruit or thrill noted. Skin: Present: Clear. Absent: Rash, No skin breakdown. Back: Normal inspection, no vertebral tenderness. Musculoskeletal: Present: No Fluid Collection, No Pain Extremities: Present: Normal Gait, No Clubbing, No Cyanosis, Upper Extr. Pulses 2+, Lower Extr. Pulses 2+, 4+ pitting edema to BLE. Capillary refill less than 3 seconds. Result/EKG - Labs CBC & BMP: 01/27/17 03:21 01/27/17 03:21 Lab Results: I have reviewed the past 24 hour labs Labs: Laboratory Results - last 24 hr 01/26/17 01/26/17 01/26/17 16:26 16:26 16:26 WBC 4.8 RBC 2.81 L Hgb 8.4 L Hct 26.4 L MCV 94.0 MCH 30 MCHC 31.8 L RDW 17.6 H Plt Count 131 MPV 11.9 Neut % (Auto) 64.4 Lymph % (Auto) 22.9 Mills % (Auto) 9.4 Eos % (Auto) 2.9 Baso % (Auto) 0.2 Neut # (Auto) 3.1 Lymph # (Auto) 1.1 L [place] # (Auto) 0.5 Eos # (Auto) 0.1 Baso # (Auto) 0.0 Immature Gran % 0.2 Nucleated RBC % 0.0 Immature Gran # 0.01 Nucleated RBCs # 0.00 Sodium 140 Potassium 3.9 Chloride 102 Carbon Dioxide 32 Anion Gap 9.9 BUN 36 H Creatinine 2.20 H GFR Calculation 31 BUN/Creatinine Ratio 16.00 Glucose 85 Calculated Osmolality 285.4 Calcium 9.9 Magnesium 2.3 Total Bilirubin 1.00 Direct Bilirubin 0.50 H Indirect Bilirubin 0.5 AST 35 ALT 36 Alkaline Phosphatase 173 H Total Protein 6.3 L Albumin 3.3 L Globulin Albumin/Globulin Ratio Urine Color Urine Appearance Urine pH Ur Specific [place] Urine Protein Urine Glucose (UA) Urine Ketones Urine Blood Urine Nitrate Urine Bilirubin Urine Urobilinogen Urine Leukocytes Ur Squamous Epith Cells Ur Culture Indicated? 01/26/17 01/27/17 01/27/17 18:23 03:21 03:21 WBC 4.5 RBC 2.71 L Hgb 8.2 L Hct 25.0 L MCV 92.3 MCH 30 MCHC 32.8 RDW 17.7 H Plt Count 128 L MPV 11.9 Neut % (Auto) 64.2 Lymph % (Auto) 19.5 L [place] % (Auto) 11.2 Eos % (Auto) 4.7 Baso % (Auto) 0.2 Neut # (Auto) 2.9 Lymph # (Auto) 0.9 L [place] # (Auto) 0.5 Eos # (Auto) 0.2 Baso # (Auto) 0.0 Immature Gran % 0.2 Nucleated RBC % 0.0 Immature Gran # 0.01 Nucleated RBCs # 0.00 Sodium 142 Potassium 4.1 Chloride 103 Carbon Dioxide 31 Anion Gap 12.1 BUN 39 H Creatinine 2.20 H GFR Calculation 31 BUN/Creatinine Ratio 17.00 Glucose 83 Calculated Osmolality 290.1 Calcium 9.4 Magnesium Total Bilirubin 1.50 H Direct Bilirubin Indirect Bilirubin AST 30 ALT 30 Alkaline Phosphatase 163 H Total Protein 5.8 L Albumin 3.0 L Globulin 2.8 Albumin/Globulin Ratio 1.0 L Urine Color Straw Urine Appearance Clear Urine pH 7.0 Ur Specific [place] 1.004 Urine Protein Negative Urine Glucose (UA) Negative Urine Ketones Negative Urine Blood Negative Urine Nitrate Negative Urine Bilirubin Negative Urine Urobilinogen < 2.0 H Urine Leukocytes Negative Ur Squamous Epith Cells Occasional Ur Culture Indicated? Not indicated - EKG EKG results: interpreted by id EKG shows: atrial fibrillation Quality Measures - VTE Contraindication to Pharmacological VTE Prophylaxis: High Risk of Bleeding <Maximino Walters - Last Filed: 01/27/17 16:16> Exam (Progress Note) - Constitutional Vitals: Period Temp Pulse Resp BP Sys/Marie Pulse Ox Last 24 Hr 97.3 F-97.5 F 60-98 17-20 108-126/58-79 91-99 Result/EKG - Labs CBC & BMP: 01/27/17 12:17 01/27/17 03:21 Labs: Laboratory Results - last 24 hr 01/26/17 01/26/17 01/26/17 16:26 16:26 16:26 WBC 4.8 RBC 2.81 L Hgb 8.4 L Hct 26.4 L MCV 94.0 MCH 30 MCHC 31.8 L RDW 17.6 H Plt Count 131 MPV 11.9 Neut % (Auto) 64.4 Lymph % (Auto) 22.9 Mills % (Auto) 9.4 Eos % (Auto) 2.9 Baso % (Auto) 0.2 Neut # (Auto) 3.1 Lymph # (Auto) 1.1 L [place] # (Auto) 0.5 Eos # (Auto) 0.1 Baso # (Auto) 0.0 Immature Gran % 0.2 Nucleated RBC % 0.0 Immature Gran # 0.01 Nucleated RBCs # 0.00 ESR Westergren Absolute Retic Percent Retic Retic Hgb Equivalent Sodium 140 Potassium 3.9 Chloride 102 Carbon Dioxide 32 Anion Gap 9.9 BUN 36 H Creatinine 2.20 H GFR Calculation 31 BUN/Creatinine Ratio 16.00 Glucose 85 Calculated Osmolality 285.4 Calcium 9.9 Magnesium 2.3 Ferritin Total Bilirubin 1.00 Direct Bilirubin 0.50 H Indirect Bilirubin 0.5 AST 35 ALT 36 Alkaline Phosphatase 173 H Total Protein 6.3 L Albumin 3.3 L Globulin Albumin/Globulin Ratio Vitamin B12 Folate Urine Color Urine Appearance Urine pH Ur Specific [place] Urine Protein Urine Glucose (UA) Urine Ketones Urine Blood Urine Nitrate Urine Bilirubin Urine Urobilinogen Urine Leukocytes Ur Squamous Epith Cells Ur Culture Indicated? YOLI (IgG-AHG) YOLI, Polyspecific 01/26/17 01/27/17 01/27/17 18:23 03:19 03:21 WBC 4.5 RBC 2.71 L Hgb 8.2 L Hct 25.0 L MCV 92.3 MCH 30 MCHC 32.8 RDW 17.7 H Plt Count 128 L MPV 11.9 Neut % (Auto) 64.2 Lymph % (Auto) 19.5 L [place] % (Auto) 11.2 Eos % (Auto) 4.7 Baso % (Auto) 0.2 Neut # (Auto) 2.9 Lymph # (Auto) 0.9 L [place] # (Auto) 0.5 Eos # (Auto) 0.2 Baso # (Auto) 0.0 Immature Gran % 0.2 Nucleated RBC % 0.0 Immature Gran # 0.01 Nucleated RBCs # 0.00 ESR [place] Absolute Retic Percent Retic Retic Hgb Equivalent Sodium Potassium Chloride Carbon Dioxide Anion Gap BUN Creatinine GFR Calculation BUN/Creatinine Ratio Glucose Calculated Osmolality Calcium Magnesium Ferritin 74.6 Total Bilirubin Direct Bilirubin Indirect Bilirubin AST ALT Alkaline Phosphatase Total Protein Albumin Globulin Albumin/Globulin Ratio Vitamin B12 Folate Urine Color Straw Urine Appearance Clear Urine pH 7.0 Ur Specific [place] 1.004 Urine Protein Negative Urine Glucose (UA) Negative Urine Ketones Negative Urine Blood Negative Urine Nitrate Negative Urine Bilirubin Negative Urine Urobilinogen < 2.0 H Urine Leukocytes Negative Ur Squamous Epith Cells Occasional Ur Culture Indicated? Not indicated YOLI (IgG-AHG) YOLI, Polyspecific 06/16/17 06/16/17 06/16/17 03:21 12:17 12:17 WBC 4.7 RBC 2.87 L Hgb 8.6 L Hct 27.3 L MCV 95.1 MCH 30 MCHC 31.5 L RDW 17.5 H Plt Count 135 MPV 11.9 Neut % (Auto) 66.2 Lymph % (Auto) 19.5 L [place] % (Auto) 9.3 Eos % (Auto) 4.0 Baso % (Auto) 0.2 Neut # (Auto) 3.1 Lymph # (Auto) 0.9 L [place] # (Auto) 0.4 Eos # (Auto) 0.2 Baso # (Auto) 0.0 Immature Gran % 0.8 Nucleated RBC % 0.0 Immature Gran # 0.04 Nucleated RBCs # 0.00 ESR Westergren 53 H Absolute Retic 0.0 Percent Retic 1.7 H Retic Hgb Equivalent 30.7 Sodium 142 Potassium 4.1 Chloride 103 Carbon Dioxide 31 Anion Gap 12.1 BUN 39 H Creatinine 2.20 H GFR Calculation 31 BUN/Creatinine Ratio 17.00 Glucose 83 Calculated Osmolality 290.1 Calcium 9.4 Magnesium Ferritin Total Bilirubin 1.50 H Direct Bilirubin Indirect Bilirubin AST 30 ALT 30 Alkaline Phosphatase 163 H Total Protein 5.8 L Albumin 3.0 L Globulin 2.8 Albumin/Globulin Ratio 1.0 L Vitamin B12 415 Folate 18.9 Urine Color Urine Appearance Urine pH Ur Specific [place] Urine Protein Urine Glucose (UA) Urine Ketones Urine Blood Urine Nitrate Urine Bilirubin Urine Urobilinogen Urine Leukocytes Ur Squamous Epith Cells Ur Culture Indicated? YOLI (IgG-AHG) YOLI, Polyspecific 01/27/17 12:17 WBC RBC Hgb Hct MCV MCH MCHC RDW Plt Count MPV Neut % (Auto) Lymph % (Auto) Mills % (Auto) Eos % (Auto) Baso % (Auto) Neut # (Auto) Lymph # (Auto) Mills # (Auto) Eos # (Auto) Baso # (Auto) Immature Gran % Nucleated RBC % Immature Gran # Nucleated RBCs # ESR [place] Absolute Retic Percent Retic Retic Hgb Equivalent Sodium Potassium Chloride Carbon Dioxide Anion Gap BUN Creatinine GFR Calculation BUN/Creatinine Ratio Glucose Calculated Osmolality Calcium Magnesium Ferritin Total Bilirubin Direct Bilirubin Indirect Bilirubin AST ALT Alkaline Phosphatase Total Protein Albumin Globulin Albumin/Globulin Ratio Vitamin B12 Folate Urine Color Urine Appearance Urine pH Ur Specific [place] Urine Protein Urine Glucose (UA) Urine Ketones Urine Blood Urine Nitrate Urine Bilirubin Urine Urobilinogen Urine Leukocytes Ur Squamous Epith Cells Ur Culture Indicated? YOLI (IgG-AHG) Negative YOLI, Polyspecific Negative
[2017-01-27] MEDS: PANTOPRAZOLE 40 MG TABLET PO SCH (12:13)
[2017-01-27 12:30] LABS: Basophils % 0.2 % (0.0-0.8); Eosinophils # 0.2 10*3/uL (0.0-0.87); Hematocrit 27.3 VOL% (35.7-47.0); Hemoglobin 8.6 GM/DL (12.0-16.0); Immature Granulocytes % 0.8 %; Immature Granulocytes Absolute 0.04 #; Lymphocytes # 0.9 10*3/uL (1.4-4.0); Lymphocytes % 19.5 % (21.3-54.2); Mean Corpuscular HGB Conc 31.5 GM/DL (32-36); Mean Corpuscular Hemoglobin 30 PG (27-34); Mean Corpuscular Volume 95.1 FL (87-102); Mean Platelet Volume 11.9 FL (9.6-12.0); Monocytes # 0.4 10*3/uL (0.11-0.8); Monocytes % 9.3 % (1.7-12.7); Neutrophils # 3.1 10*3/uL (1.4-7.4); Neutrophils % 66.2 % (38.7-73.9); Platelet Count 135 T/CUMM (130-400); Red Blood Count 2.87 MC/CUMM (3.8-5.5); Red Cell Distribution Width 17.5 % (9.3-17.3); White Blood Count 4.7 T/CUMM (4-12)
[2017-01-27 13:14] LABS: Folate 18.9 NG/ML (5.4-24.0); Vitamin B12 415 PG/ML (211-911)
[2017-01-27 13:31] LABS: Sedimentation Rate-Westergren 53 MM/HR (0-30)
[2017-01-27] MEDS: ISOSORBIDE DINITRATE 20 MG TABLET PO SCH (21:02)
[2017-01-28] MEDS: ALBUTEROL 0.63 MG/3 ML NEB RESP TX SCH ×6 (04:25→23:00)
[2017-01-28 05:01] LABS: Basophils % 0.2 % (0.0-0.8); Eosinophils # 0.2 10*3/uL (0.0-0.87); Eosinophils % 5.1 % (0.00-10.9); Hemoglobin 7.9 GM/DL (12.0-16.0); Immature Granulocytes % 0.4 %; Immature Granulocytes Absolute 0.02 #; Mean Corpuscular HGB Conc 31.6 GM/DL (32-36); Mean Corpuscular Hemoglobin 30 PG (27-34); Mean Corpuscular Volume 94.7 FL (87-102); Mean Platelet Volume 12.3 FL (9.6-12.0); Monocytes # 0.6 10*3/uL (0.11-0.8); Monocytes % 13.1 % (1.7-12.7); Neutrophils # 2.9 10*3/uL (1.4-7.4); Neutrophils % 61.2 % (38.7-73.9); Platelet Count 125 T/CUMM (130-400); Red Blood Count 2.64 MC/CUMM (3.8-5.5); Red Cell Distribution Width 17.3 % (9.3-17.3); White Blood Count 4.7 T/CUMM (4-12)
[2017-01-28 05:35] LABS: Magnesium 2.1 MG/DL (1.8-2.4); Potassium 4.2 MMOL/L (3.5-5.1)
[2017-01-28] MEDS: FUROSEMIDE 40 MG/4 ML VIAL IV SCH ×2 (08:04→16:30)
[2017-01-28] MEDS: METOCLOPRAMIDE 5 MG TABLET PO SCH ×3 (08:04→16:29)
[2017-01-28] MEDS: FERROUS SULFATE 325 MG TABLET PO SCH ×2 (09:04→21:17)
[2017-01-28] MEDS: ALLOPURINOL 300 MG TABLET PO SCH (09:05)
[2017-01-28] MEDS: PANTOPRAZOLE 40 MG TABLET PO SCH (09:05)
[2017-01-28] MEDS: POTASSIUM CHLORIDE 20 MEQ TABLET PO SCH ×2 (09:05→21:16)
[2017-01-28] MEDS: DOCUSATE SODIUM 100 MG CAPSULE PO SCH ×2 (09:06→21:16)
[2017-01-28] MEDS: LISINOPRIL 20 MG TABLET PO SCH (09:06)
[2017-01-28] MEDS: ISOSORBIDE DINITRATE 20 MG TABLET PO SCH ×3 (09:06→21:16)
[2017-01-28] MEDS: CARVEDILOL 3.125 MG TABLET PO SCH ×2 (09:06→21:17)
[2017-01-28] MEDS: CITRIC ACID/SODIUM CITRATE 30 ML UDCUP PO SCH ×3 (09:07→21:17)
--- NOTE | 2017-01-28 10:09 | Cardiology Progress Note ---
Assessment and Plan (1) Chronic renal insufficiency Status: Acute Current Visit: No (2) Atrial fibrillation Status: Chronic Current Visit: No Qualifiers: Atrial fibrillation type: persistent Qualified Code(s): I48.1 - Persistent atrial fibrillation (3) Acute systolic CHF (congestive heart failure) Status: Acute Assessment and plan: January 27, 2017: 1. 77-year-old BMI 45 BF with moderate cardiomyopathy to 3+ MR,. Permanent atrial fibrillation, CKD, and anemia who was found to have ulcers earlier this month and anemia which precluded heart catheterization, now admitted with persistent dyspnea on exertion or lower extremity edema (they only worsened slightly, but she had significant baseline symptomatology prior to that) 2. Continue IV diuresis and will monitor renal function and electrolytes 3. She is on beta-merissa, SONAL inhibitor and hydralazine appropriately; will add isosorbide dinitrate 20 mg 3 times daily to treat her acute on chronic systolic heart failure. 4. History of report ischemic stroke in the past 5. Chronic RBBB 6. Continue PPI; hold aspirin for now January 28, 2017: 1. Ms. Lynn has little improvement in her mild baseline dyspnea and severe lower extremity edema secondary to acute on chronic systolic heart failure with cardiorenal syndrome. 2. Added nitrates yesterday which she is tolerated and held aspirin for now 3. Try thigh-high support hose if we can find some that will fit her; she has been unable to put them on in the past but perhaps with assistance this will be helpful. She had no venous reflux on study in the clinic. 4. Hemodynamic is stable 5. Starting Entresto, would require holding SONAL inhibitor for 72 hours, so will not do that at this point. 6. Continue IV diuresis and follow renal function and electrolytes 7. Atrial fibrillation rate is controlled Current Visit: Yes Cardiology - PN: Subj Interval history: Shane is little change still with some mild dyspnea at baseline, and significant lower extremity edema. She is not having any chest discomfort palpitations or other complaints. She is gotten up a little but is limited by her obesity and symptoms. Exam (Progress Note) - Constitutional Vitals: Period Temp Pulse Resp BP Sys/Marie Pulse Ox Last 24 Hr 97.1 F-98.2 F 61-80 16-22 96-127/53-69 92-100 General appearance: no acute distress, morbidly obese - Head Head exam: Present: normal inspection, normocephalic, atraumatic - Neck Neck exam: Present: normal inspection - Respiratory Respiratory exam: Absent: stridor, wheezes - Cardiovascular Cardiovascular exam: Present: regular rate and rhythm, systolic murmur. Absent : diastolic murmur, rubs - GI/Abdominal GI/Abdominal exam: Present: soft. Absent: tenderness - Extremities Exam Extremities exam: Present: edema (3+ bilateral lower extremity edema) Result/EKG - Labs CBC & BMP: 01/28/17 03:32 01/28/17 03:32 Labs: Laboratory Results - last 24 hr 01/27/17 01/27/17 01/27/17 03:19 12:17 12:17 WBC 4.7 RBC 2.87 L Hgb 8.6 L Hct 27.3 L MCV 95.1 MCH 30 MCHC 31.5 L RDW 17.5 H Plt Count 135 MPV 11.9 Neut % (Auto) 66.2 Lymph % (Auto) 19.5 L Crawford % (Auto) 9.3 Eos % (Auto) 4.0 Baso % (Auto) 0.2 Neut # (Auto) 3.1 Lymph # (Auto) 0.9 L [place] # (Auto) 0.4 Eos # (Auto) 0.2 Baso # (Auto) 0.0 Immature Gran % 0.8 Nucleated RBC % 0.0 Immature Gran # 0.04 Nucleated RBCs # 0.00 ESR Westergren 53 H Absolute Retic 0.0 Percent Retic 1.7 H Retic Hgb Equivalent 30.7 Sodium Potassium Chloride Carbon Dioxide Anion Gap BUN Creatinine GFR Calculation BUN/Creatinine Ratio Glucose Calculated Osmolality Calcium Magnesium Ferritin 74.6 Vitamin B12 415 Folate 18.9 YOLI (IgG-AHG) YOLI, Polyspecific 01/27/17 01/28/17 01/28/17 12:17 03:32 03:32 WBC 4.7 RBC 2.64 L Hgb 7.9 L Hct 25.0 L MCV 94.7 MCH 30 MCHC 31.6 L RDW 17.3 Plt Count 125 L MPV 12.3 H Neut % (Auto) 61.2 Lymph % (Auto) 20.0 L Crawford % (Auto) 13.1 H Eos % (Auto) 5.1 Baso % (Auto) 0.2 Neut # (Auto) 2.9 Lymph # (Auto) 1.0 L [place] # (Auto) 0.6 Eos # (Auto) 0.2 Baso # (Auto) 0.0 Immature Gran % 0.4 Nucleated RBC % 0.0 Immature Gran # 0.02 Nucleated RBCs # 0.00 ESR Westergren Absolute Retic Percent Retic Retic Hgb Equivalent Sodium 143 Potassium 4.2 Chloride 102 Carbon Dioxide 35 H Anion Gap 10.2 BUN 40 H Creatinine 2.30 H GFR Calculation 29 BUN/Creatinine Ratio 17.00 Glucose 90 Calculated Osmolality 294.0 Calcium 9.0 Magnesium 2.1 Ferritin Vitamin B12 Folate YOLI (IgG-AHG) Negative YOLI, Polyspecific Negative Quality Measures - VTE Contraindication to Pharmacological VTE Prophylaxis: High Risk of Bleeding
[2017-01-28] MEDS: ENOXAPARIN 30 MG/0.3 ML SYRINGE SUBCUT SCH (12:31)
[2017-01-29 05:19] LABS: Basophils % 0.2 % (0.0-0.8); Eosinophils # 0.2 10*3/uL (0.0-0.87); Eosinophils % 5.3 % (0.00-10.9); Hematocrit 24.7 VOL% (35.7-47.0); Hemoglobin 7.8 GM/DL (12.0-16.0); Mean Corpuscular HGB Conc 31.6 GM/DL (32-36); Mean Corpuscular Hemoglobin 30 PG (27-34); Mean Corpuscular Volume 93.9 FL (87-102); Mean Platelet Volume 11.5 FL (9.6-12.0); Monocytes # 0.6 10*3/uL (0.11-0.8); Monocytes % 12.8 % (1.7-12.7); Neutrophils # 2.5 10*3/uL (1.4-7.4); Neutrophils % 58.7 % (38.7-73.9); Platelet Count 140 T/CUMM (130-400); Red Blood Count 2.63 MC/CUMM (3.8-5.5); Red Cell Distribution Width 17.2 % (9.3-17.3); White Blood Count 4.3 T/CUMM (4-12)
[2017-01-29 05:47] LABS: Calcium 9.9 MG/DL (8.5-10.1); Magnesium 2.2 MG/DL (1.8-2.4); Osmolality,Calculated 291.1 MOS/KG (273-304); Potassium 4.4 MMOL/L (3.5-5.1)
[2017-01-29] MEDS: ALBUTEROL 0.63 MG/3 ML NEB RESP TX SCH (07:23)
[2017-01-29] MEDS: CITRIC ACID/SODIUM CITRATE 30 ML UDCUP PO SCH ×3 (08:43→22:30)
[2017-01-29] MEDS: CARVEDILOL 3.125 MG TABLET PO SCH ×2 (08:44→22:23)
[2017-01-29] MEDS: POTASSIUM CHLORIDE 20 MEQ TABLET PO SCH ×2 (08:44→22:24)
[2017-01-29] MEDS: ISOSORBIDE DINITRATE 20 MG TABLET PO SCH ×3 (08:45→22:23)
[2017-01-29] MEDS: PANTOPRAZOLE 40 MG TABLET PO SCH (08:45)
[2017-01-29] MEDS: DOCUSATE SODIUM 100 MG CAPSULE PO SCH ×2 (08:45→22:24)
[2017-01-29] MEDS: FERROUS SULFATE 325 MG TABLET PO SCH ×2 (08:46→22:23)
[2017-01-29] MEDS: metOLazone 5 MG TABLET PO SCH ×2 (08:47→10:02)
[2017-01-29] MEDS: LISINOPRIL 20 MG TABLET PO SCH (08:47)
[2017-01-29] MEDS: METOCLOPRAMIDE 5 MG TABLET PO SCH ×3 (08:47→15:46)
[2017-01-29] MEDS: ALLOPURINOL 300 MG TABLET PO SCH (08:47)
[2017-01-29] MEDS: FUROSEMIDE 40 MG/4 ML VIAL IV SCH ×2 (08:49→15:50)
--- NOTE | 2017-01-29 09:19 | Cardiology Progress Note ---
Assessment and Plan (1) Chronic renal insufficiency Status: Acute Current Visit: No (2) Atrial fibrillation Status: Chronic Current Visit: No Qualifiers: Atrial fibrillation type: persistent Qualified Code(s): I48.1 - Persistent atrial fibrillation (3) Acute systolic CHF (congestive heart failure) Status: Acute Assessment and plan: January 27, 2017: 1. 77-year-old BMI 45 BF with moderate cardiomyopathy to 3+ MR,. Permanent atrial fibrillation, CKD, and anemia who was found to have ulcers earlier this month and anemia which precluded heart catheterization, now admitted with persistent dyspnea on exertion or lower extremity edema (they only worsened slightly, but she had significant baseline symptomatology prior to that) 2. Continue IV diuresis and will monitor renal function and electrolytes 3. She is on beta-merissa, SONAL inhibitor and hydralazine appropriately; will add isosorbide dinitrate 20 mg 3 times daily to treat her acute on chronic systolic heart failure. 4. History of report ischemic stroke in the past 5. Chronic RBBB 6. Continue PPI; hold aspirin for now January 28, 2017: 1. Ms. Lynn has little improvement in her mild baseline dyspnea and severe lower extremity edema secondary to acute on chronic systolic heart failure with cardiorenal syndrome. 2. Added nitrates yesterday which she is tolerated and held aspirin for now 3. Try thigh-high support hose if we can find some that will fit her; she has been unable to put them on in the past but perhaps with assistance this will be helpful. She had no venous reflux on study in the clinic. 4. Hemodynamic is stable 5. Starting Entresto, would require holding SONAL inhibitor for 72 hours, so will not do that at this point. 6. Continue IV diuresis and follow renal function and electrolytes 7. Atrial fibrillation rate is controlled January 29, 2017: 1. Ms. Lynn has still not made much improvement, with slight increase in her weight and no clinical change with 3+ lower extremity edema, dyspnea on exertion. I will add metolazone this morning, will need to follow her renal function as she has CKD with stable creatinine of 2.2-2.3 2. Previous GI bleed noted with 4+ heme positive stool, but no gross bleeding. She is on low-dose Lovenox 30 minutes per day for DVT prophylaxis. Will check hematocrit in the morning and consider GI consult (recent EGD with ulcers) 3. Moderate cardiomyopathy 3+ mitral regurgitation; we need to consider if her MR is symptomatic 4. Chronic RBBB/atrial fibrillation 5. History of remote ischemic stroke 6. We will again order for support hose be placed, we can find the appropriate size 7. New wheezing noted today; trial of duo nebs Current Visit: Yes Cardiology - PN: Subj Interval history: Ms. Lynn is changed little still with significant swelling, and some dyspnea on exertion. Told she had heme positive stool but has no gross blood. Her hematocrit is been reasonably stable. Exam (Progress Note) - Constitutional Vitals: Period Temp Pulse Resp BP Sys/Marie Pulse Ox Last 24 Hr 97.3 F-97.9 F 67-87 14-22 105-138/51-69 94-100 General appearance: no acute distress, over weight - Head Head exam: Present: normal inspection, normocephalic, atraumatic - Respiratory Respiratory exam: Present: clear to auscultation bilaterally, wheezes. Absent: stridor - Cardiovascular Cardiovascular exam: Present: regular rate and rhythm, systolic murmur. Absent : diastolic murmur, rubs - Extremities Exam Extremities exam: Present: edema Result/EKG - Labs CBC & BMP: 01/29/17 05:00 01/29/17 05:00 Labs: Laboratory Results - last 24 hr 01/29/17 01/29/17 05:00 05:00 WBC 4.3 RBC 2.63 L Hgb 7.8 L Hct 24.7 L MCV 93.9 MCH 30 MCHC 31.6 L RDW 17.2 Plt Count 140 MPV 11.5 Neut % (Auto) 58.7 Lymph % (Auto) 23.0 [place] % (Auto) 12.8 H Eos % (Auto) 5.3 Baso % (Auto) 0.2 Neut # (Auto) 2.5 Lymph # (Auto) 1.0 L [place] # (Auto) 0.6 Eos # (Auto) 0.2 Baso # (Auto) 0.0 Immature Gran % 0.0 Nucleated RBC % 0.0 Immature Gran # 0.00 Nucleated RBCs # 0.00 Sodium 142 Potassium 4.4 Chloride 101 Carbon Dioxide 37 H Anion Gap 8.4 BUN 39 H Creatinine 2.30 H GFR Calculation 29 BUN/Creatinine Ratio 16.00 Glucose 97 Calculated Osmolality 291.1 Calcium 9.9 Magnesium 2.2 Quality Measures - VTE Contraindication to Pharmacological VTE Prophylaxis: High Risk of Bleeding
[2017-01-29] MEDS: ENOXAPARIN 30 MG/0.3 ML SYRINGE SUBCUT SCH (11:08)
[2017-01-29] MEDS: ALBUTEROL/IPRATROPIUM 3 ML NEB RESP TX SCH ×2 (12:57→19:19)
[2017-01-30] MEDS: ALBUTEROL/IPRATROPIUM 3 ML NEB RESP TX SCH ×4 (00:18→19:00)
[2017-01-30 04:45] LABS: Basophils % 0.3 % (0.0-0.8); Eosinophils # 0.2 10*3/uL (0.0-0.87); Eosinophils % 5.9 % (0.00-10.9); Hematocrit 23.8 VOL% (35.7-47.0); Hemoglobin 7.5 GM/DL (12.0-16.0); Immature Granulocytes % 0.3 %; Immature Granulocytes Absolute 0.01 #; Lymphocytes # 1.1 10*3/uL (1.4-4.0); Lymphocytes % 29.6 % (21.3-54.2); Mean Corpuscular HGB Conc 31.5 GM/DL (32-36); Mean Corpuscular Hemoglobin 30 PG (27-34); Mean Corpuscular Volume 94.1 FL (87-102); Mean Platelet Volume 11.2 FL (9.6-12.0); Monocytes # 0.6 10*3/uL (0.11-0.8); Monocytes % 15.2 % (1.7-12.7); Neutrophils # 1.8 10*3/uL (1.4-7.4); Neutrophils % 48.7 % (38.7-73.9); Platelet Count 120 T/CUMM (130-400); Red Blood Count 2.53 MC/CUMM (3.8-5.5); Red Cell Distribution Width 16.9 % (9.3-17.3); White Blood Count 3.8 T/CUMM (4-12)
[2017-01-30 05:15] LABS: Calcium 9.7 MG/DL (8.5-10.1); Osmolality,Calculated 289.3 MOS/KG (273-304); Potassium 3.9 MMOL/L (3.5-5.1)
[2017-01-30 07:57] LABS: Hemoglobin A1 (Alkaline) 97.5 % (96.5-98.5); Hemoglobin A2 (Alkaline) 2.5 % (1.5-3.5)
[2017-01-30] MEDS: METOCLOPRAMIDE 5 MG TABLET PO SCH ×3 (08:40→16:37)
[2017-01-30] MEDS: ALLOPURINOL 300 MG TABLET PO SCH (08:41)
[2017-01-30] MEDS: PANTOPRAZOLE 40 MG TABLET PO SCH ×2 (08:41→21:41)
[2017-01-30] MEDS: POTASSIUM CHLORIDE 20 MEQ TABLET PO SCH ×2 (08:41→21:41)
[2017-01-30] MEDS: DOCUSATE SODIUM 100 MG CAPSULE PO SCH ×2 (08:41→21:40)
[2017-01-30] MEDS: FERROUS SULFATE 325 MG TABLET PO SCH ×2 (08:41→21:41)
[2017-01-30] MEDS: metOLazone 5 MG TABLET PO SCH (08:41)
[2017-01-30] MEDS: ISOSORBIDE DINITRATE 20 MG TABLET PO SCH (08:41)
[2017-01-30] MEDS: FUROSEMIDE 40 MG/4 ML VIAL IV SCH ×2 (08:43→16:37)
[2017-01-30] MEDS: CARVEDILOL 3.125 MG TABLET PO SCH ×2 (08:48→21:41)
[2017-01-30] MEDS: LISINOPRIL 20 MG TABLET PO SCH (08:48)
[2017-01-30] MEDS: CITRIC ACID/SODIUM CITRATE 30 ML UDCUP PO SCH ×3 (08:54→21:41)
[2017-01-30] MEDS ORDERED: SODIUM CHLORIDE 0.9% 250 ML IV PRN (09:35)
--- NOTE | 2017-01-30 09:35 | Physician Query Form ---
CLICK EDIT DOCUMENT TO SELECT QUERY ANSWER --> OK --> SIGN Christen Larson RN Clinical Mdm Developer W) [phone] (f) [phone] [email or web address] PROVIDERS: Make your selection(s) from the choices in EACH section by typing an "x" and enter comments in the comment section. Please use your independent medical judgment in providing your response. This request does not imply that any particular answer is desired or expected. CLINICAL INDICATORS: (Providers should not edit this section) Based on documentation of "chronic renal insufficiency", creatinine of 2.30 with a GFR of 29. Please stage the CKD. Clarify which of the following most accurately represents the patient's renal status: Chronic Kidney Disease Stages Source: National Kid[employer] Foundation ( ) Stage I (eGFR > or = 90) ( ) Stage II (eGFR 60 - 89) () Stage III (eGFR 30 - 59) ( X) Stage IV (eGFR 15 - 29) ( ) Stage V (eGFR < 15 or dialysis) COMMENTS: PLEASE ALSO DOCUMENT RESPONSE IN PROGRESS NOTES AND/OR DISCHARGE SUMMARY Use of terms such as suspected, likely, or probable (associated with a specific diagnosis that is being evaluated, monitored, or treated as if it exists) are acceptable and can be restated in the discharge summary if not ruled out. MTDD
--- NOTE | 2017-01-30 09:47 | Cardiology Progress Note ---
<Kayla López E - Last Filed: 01/30/17 09:40> Assessment and Plan - Time spent with patient Time spent with patient: Less than 30 minutes (1) Acute systolic CHF (congestive heart failure) Status: Acute Assessment and plan: See plan of care listed below. Current Visit: Yes (2) Cardiomyopathy Status: Chronic Assessment and plan: See plan of care listed below. Current Visit: No (3) Atrial fibrillation Status: Chronic Assessment and plan: See plan of care listed below. Current Visit: No Qualifiers: Atrial fibrillation type: persistent Qualified Code(s): I48.1 - Persistent atrial fibrillation (4) Chronic renal insufficiency Status: Acute Assessment and plan: See plan of care listed below. Current Visit: No (5) Anemia Status: Acute Assessment and plan: See plan of care listed below. Current Visit: No (6) COPD (chronic obstructive pulmonary disease) Status: Chronic Assessment and plan: See plan of care listed below. Current Visit: Yes (7) GERD (gastroesophageal reflux disease) Status: Chronic Assessment and plan: See plan of care listed below. Current Visit: Yes (8) Obesity Status: Chronic Assessment and plan: See plan of care listed below. Current Visit: Yes Cardiology - PN: Subj Interval history: Armhole Baster Jumpbasting: Dr. Monaco PCP: Dr. Donovan Ms. Lynn is a 77-year-old -[place] female with history of persistent atrial fibrillation, cardiomyopathy, diastolic dysfunction, hypertension, prior ischemic stroke, chronic renal insufficiency, bilateral lower extremity venous insufficiency, gout, obesity, COPD, systolic CHF, GERD. Risk factors are significant for: Hypertension, obesity, sedentary lifestyle. She was previously admitted to the hospital on 01/15/17 with anticipation of renal prophylactic saline gently before [facility] on 01/16/17 but was found to be profoundly anemic. Her cath was cancelled and she was found to have multiple antral gastric ulcers and a hiatal hernia. She returned to Dr. Monaco's clinic for follow up on 01/26/17 with dyspnea and edema. She reported 2 pillow orthopnea and difficulty moving her legs due to the heaviness from her edema. She was admitted to the hospital from clinic for diuresis and further workup and treatment of acutely decompensated heart failure and evaluation of worsening anemia with epistaxis. Ms. Lynn reports she can tell a slight improvement in her breathing; however her edema remains about the same if she continues to have some dyspnea on exertion. ASSESSMENT/PLAN: 1. ACUTE SYSTOLIC CHF -continue diuretic therapy. Continue beta-merissa and SONAL inhibitor. Nephrology has been consulted for their input regarding her renal insufficiency. She has been hypertensive this morning blood pressure 99/ 55 and 102/59. Morning doses of hydralazine and lisinopril have been held. She has diuresed well with the addition of metolazone. Her weight went from 262.6 pounds yesterday to 256.8 pounds today. 2. CARDIOMYOPATHY, UNSPECIFIED -echocardiogram done 12/08/2016 revealed EF 35%, grade 3 diastolic dysfunction, severe LVH, moderate to severe mitral regurgitation, mild aortic insufficiency, moderate pulmonic regurgitation, and moderate to severe tricuspid regurgitation. She was also noted to have evidence of pulmonary hypertension with PAP 65 mmHg. 3. PERSISTENT ATRIAL FIBRILLATION - She is currently rate controlled. Continue Coreg 3.125mg PO BID. Chronic anticoagulation was previously discontinued due to profound anemia and she continues to be a poor candidate for anticoagulation. 4. CHRONIC RENAL INSUFFICIENCY - Will consult Nephrology for their input. 5. ANEMIA -she still has heme positive stool but has no gross bleeding. GI has been consulted. H&H has continued to drop over the weekend and is now 7.5 23.8. Will go ahead and give her 2 units of blood. She was started on Lovenox 30 mg daily for DVT prophylaxis; however her H&H is continued to drop. We will hold this morning's dose and further discuss with Dr. Monaco prior to proceeding with further anticoagulation. 6. COPD - Continue O2 and breathing treatments PRN. 7. GERD - Continue PPI. 8. OBESITY - Chronic. Dr. Monaco to follow with further plan and addendum. Exam (Progress Note) - Constitutional Vitals: Period Temp Pulse Resp BP Sys/Marie Pulse Ox Last 24 Hr 97.2 F-97.9 F 71-90 16-20 99-144/51-66 95-100 Exam: General: Present: Appears Well, No Apparent Distress. Pleasant and cooperative. Appears comfortable. HEENT: Present: PERRL, Normocephaly, atraumatic. Mucus Membranes Moist. No jaundice noted. Conjunctiva moist and clear, sclerae anicteric Neck: Present: Supple Neck, Midline Trachea, No Masses, No Bruit, No tenderness Cardiac: Present: Regular Rate and Rhythm, Systolic Murmur, no chest wall tenderness Lungs: Present: End-expiratory wheezes noted posteriorly throughout all lung gonzalez, no rhonchi. Neuro: Present: Awake, alert, and oriented x3. Moves all extremities well without hemiparesis or paralysis. Grossly Intact. Absent: Resting Tremor, Essential Tremor Abdomen: Present: Soft, Active Bowel Sounds, No Masses, Non-Tender, nondistended. No abdominal bruit or thrill noted. Skin: Present: Clear. Absent: Rash, No skin breakdown. Back: Normal inspection, no vertebral tenderness. Musculoskeletal: Present: No Fluid Collection, No Pain Extremities: Present: Normal Gait, No Clubbing, No Cyanosis, Upper Extr. Pulses 2+, Lower Extr. Pulses 2+, 4+ pitting edema to BLE. Capillary refill less than 3 seconds. Result/EKG - Labs CBC & BMP: 01/30/17 04:21 01/30/17 04:21 Lab Results: I have reviewed the past 24 hour labs Labs: Laboratory Results - last 24 hr 01/27/17 01/27/17 01/30/17 12:17 12:17 04:21 WBC 3.8 L RBC 2.53 L Hgb 7.5 L Hct 23.8 L MCV 94.1 MCH 30 MCHC 31.5 L RDW 16.9 Plt Count 120 L MPV 11.2 Neut % (Auto) 48.7 Lymph % (Auto) 29.6 [place] % (Auto) 15.2 H Eos % (Auto) 5.9 Baso % (Auto) 0.3 Neut # (Auto) 1.8 Lymph # (Auto) 1.1 L [place] # (Auto) 0.6 Eos # (Auto) 0.2 Baso # (Auto) 0.0 Immature Gran % 0.3 Nucleated RBC % 0.0 Immature Gran # 0.01 Nucleated RBCs # 0.00 Anemia Panel Interp See comment ESR Westergren 53 H Hemoglobin A1 97.5 Hemoglobin A2 2.5 Hgb ELP Interp See comment Sodium Potassium Chloride Carbon Dioxide Anion Gap BUN Creatinine GFR Calculation BUN/Creatinine Ratio Glucose Calculated Osmolality Calcium Magnesium 01/30/17 04:21 WBC RBC Hgb Hct MCV MCH MCHC RDW Plt Count MPV Neut % (Auto) Lymph % (Auto) [place] % (Auto) Eos % (Auto) Baso % (Auto) Neut # (Auto) Lymph # (Auto) [place] # (Auto) Eos # (Auto) Baso # (Auto) Immature Gran % Nucleated RBC % Immature Gran # Nucleated RBCs # Anemia Panel Interp ESR Westergren Hemoglobin A1 Hemoglobin A2 Hgb ELP Interp Sodium 141 Potassium 3.9 Chloride 97 L Carbon Dioxide 38 H Anion Gap 9.9 BUN 40 H Creatinine 2.30 H GFR Calculation 30 BUN/Creatinine Ratio 17.00 Glucose 89 Calculated Osmolality 289.3 Calcium 9.7 Magnesium 2.0 - EKG EKG results: interpreted by me EKG shows: atrial fibrillation (with controlled rate) Quality Measures - VTE Contraindication to Pharmacological VTE Prophylaxis: High Risk of Bleeding <Beth Monaco - Last Filed: 01/30/17 10:49> Assessment and Plan (1) Acute systolic CHF (congestive heart failure) Status: Acute Assessment and plan: This is acute on chronic systolic and diastolic heart failure of multifactorial etiology compounded by renal insufficiency and anemia Current Visit: Yes (2) Obesity Status: Chronic Current Visit: Yes (3) Anemia Status: Acute Current Visit: No Qualifiers: Chronic kidney disease stage: stage 3 (moderate) (4) Atrial fibrillation Status: Chronic Current Visit: No Qualifiers: Atrial fibrillation type: persistent Qualified Code(s): I48.1 - Persistent atrial fibrillation (5) Cardiomyopathy Status: Chronic Current Visit: No (6) Chronic renal insufficiency, stage III (moderate) Status: Chronic Current Visit: No (7) GI bleed Status: Chronic Assessment and plan: Antral gastric ulcers recently with declining H&H Current Visit: No Cardiology - PN: Subj Interval history: I saw discussed with Dee Dee Rene. This is a very pleasant 77-year-old female with at least 4 disease processes that have made it very difficult to manage her. She has newly diagnosed cardiomyopathy with EF 35% as well as atrial fibrillation she has pulmonary hypertension cor pulmonale right heart failure lower extremity edema and renal insufficiency all complicated by a GI bleed. Her blood counts have been trending down since she has been here slightly. Her renal insufficiency has prohibited left heart catheterization and is been felt that coronary disease is a high probability. She was recently in the hospital and GI saw and performed upper endoscopy and found mini gastric ulcers in the antrum. She was also seen by nephrology at that time. I saw her in the office last week and admitted her because of worsening symptoms. We have not made much progress. Exam (Progress Note) - Constitutional Vitals: Period Temp Pulse Resp BP Sys/Marie Pulse Ox Last 24 Hr 97.2 F-97.9 F 71-90 16-20 99-144/51-66 95-100 Exam: The patient is morbidly obese she has pallor. She states that she continues to have black stools but she thought that was from the iron. Her hemoglobin has trended down. She is obese cardiac vascular is slightly irregular. PMI is laterally displaced her lungs are clear abdominal exam is soft and nontender she has 2+ bilateral lower extremity edema. She has chronically enlarged lower extremities probably not amenable to the ED will have the nurses wrapped them. Result/EKG - Labs CBC & BMP: 01/30/17 04:21 01/30/17 04:21 Labs: Laboratory Results - last 24 hr 01/27/17 01/27/17 01/30/17 12:17 12:17 04:21 WBC 3.8 L RBC 2.53 L Hgb 7.5 L Hct 23.8 L MCV 94.1 MCH 30 MCHC 31.5 L RDW 16.9 Plt Count 120 L MPV 11.2 Neut % (Auto) 48.7 Lymph % (Auto) 29.6 [place] % (Auto) 15.2 H Eos % (Auto) 5.9 Baso % (Auto) 0.3 Neut # (Auto) 1.8 Lymph # (Auto) 1.1 L [place] # (Auto) 0.6 Eos # (Auto) 0.2 Baso # (Auto) 0.0 Immature Gran % 0.3 Nucleated RBC % 0.0 Immature Gran # 0.01 Nucleated RBCs # 0.00 Anemia Panel Interp See comment ESR Westergren 53 H Hemoglobin A1 97.5 Hemoglobin A2 2.5 Hgb ELP Interp See comment Sodium Potassium Chloride Carbon Dioxide Anion Gap BUN Creatinine GFR Calculation BUN/Creatinine Ratio Glucose Calculated Osmolality Calcium Magnesium Blood Type Antibody Screen Crossmatch 01/30/17 01/30/17 01/30/17 04:21 04:21 Unknown WBC RBC Hgb Hct MCV MCH MCHC RDW Plt Count MPV Neut % (Auto) Lymph % (Auto) [place] % (Auto) Eos % (Auto) Baso % (Auto) Neut # (Auto) Lymph # (Auto) [place] # (Auto) Eos # (Auto) Baso # (Auto) Immature Gran % Nucleated RBC % Immature Gran # Nucleated RBCs # Anemia Panel Interp ESR Westergren Hemoglobin A1 Hemoglobin A2 Hgb ELP Interp Sodium 141 Potassium 3.9 Chloride 97 L Carbon Dioxide 38 H Anion Gap 9.9 BUN 40 H Creatinine 2.30 H GFR Calculation 30 BUN/Creatinine Ratio 17.00 Glucose 89 Calculated Osmolality 289.3 Calcium 9.7 Magnesium 2.0 Blood Type O POSITIVE O POSITIVE Antibody Screen Negative Crossmatch See Detail
[2017-01-30] MEDS: ENOXAPARIN 30 MG/0.3 ML SYRINGE SUBCUT SCH (10:26)
[2017-01-30] MEDS: SUCRALFATE 1 GM TABLET PO SCH ×2 (12:18→16:37)
--- NOTE | 2017-01-30 13:34 | Gastrointestinal Consult Note ---
Assessment and Plan (1) Anemia Status: Acute Assessment and plan: 01/30-admitted with shortness of breath and edema, findings of anemia with drop in hemoglobin over weekend without overt bleeding. 4+ stools for occult blood found. To be transfused 2 units of packed red blood cells today. Hemoglobin at 8.2 on admission now down to 7.8. Recent EGD with last hospitalization, findings of gastric antral ulcers. Plan an addendum to followed by Dr. Morrell. Current Visit: No Qualifiers: Chronic kidney disease stage: stage 3 (moderate) History of Present Illness Chief complaint: Anemia History of present illness: Ms. Lynn is a 77 year old female who was admitted to the hospital with reports of increasing shortness of breath and swelling to her legs. Patient has a history of atrial fibrillation, cardiomyopathy, hypertension, CVA, COPD, CHF, and GERD. She is a fairly good historian however information also obtained from chart review. Patient was admitted to our hospital earlier this month for heart catheterization however on admission she was found to be profoundly anemic. Her heart cath was canceled at that time and we proceeded with an EGD in which Dr. Morrell noted findings of multiple antral gastric ulcers with low risk of active bleeding. She did not undergo heart catheterization during that hospital stay and was discharged home on a PPI and told to hold her aspirin. Her hemoglobin on discharge was noted to be 8.3. Patient presents back with several day history of increasing shortness of breath and edema. Upon this admission, she was found again to have anemia with a hemoglobin of 8.5, however this was noted to trend downward at this time at 7.8 since admission on 01/27. Patient denies seeing any melena or hematochezia however states she did have a couple of days of dark stools but related this to her iron therapy. She denies any nausea vomiting or abdominal pain. She denies any recent weight loss, increased GERD, or dysphagia. She denies any NSAID use. She has been diuresed since admission and states that her edema and shortness of breath has improved. She was also found to have 4+ heme positive stools on admission. She is to be transfused 2 units of packed red blood cells today. She was noted on admission to be started on Lovenox for DVT prevention however this is also being held at present time. Protonix 40 mg twice daily has also been initiated. Home Medications Medication Instructions Recorded Confirmed Type Albuterol Sulfate 2.5 mg IH Q6HR 01/11/17 01/26/17 History Albuterol Sulfate [Proair HFA] 2 puff INH Q6H PRN 01/11/17 01/26/17 History Allopurinol 300 mg PO DAILY 01/11/17 01/26/17 History Aspirin [Aspirin EC] 81 mg PO DAILY 01/11/17 01/26/17 History Ferrous Sulfate [Iron] 325 mg PO BID 01/11/17 01/26/17 History Lisinopril 20 mg PO DAILY 01/11/17 01/26/17 History Metoclopramide HCl 10 mg PO BID 01/11/17 01/26/17 History Montelukast Tab [Singulair Tab] 10 mg PO BEDTIME 01/11/17 01/26/17 History Potassium Chloride 20 meq PO BID 01/11/17 01/26/17 History hydrALAZINE TAB [Apresoline Tab] 50 mg PO BID 01/11/17 01/26/17 History Bisoprol/Hydrochlorothiazide 0.5 tablet PO DAILY #0 01/18/17 01/26/17 Rx [Bisoprolol-Hctz 5-6.25 mg Tab] Citric Acid/Sodium Citrate 30 ml PO TID #1 bottle 01/18/17 01/26/17 Rx [Bicitra] Furosemide Tab [Lasix Tab] 40 mg PO BID #0 01/18/17 01/26/17 Rx Pantoprazole Tab [Protonix Tab] 40 mg PO DAILY #30 tablet 01/18/17 01/26/17 Rx Allergies Allergy/AdvReac Type Severity Reaction Status Date / Time doxycycline Allergy Severe RASH Verified 01/17/17 14:13 Medical,Surgical,& Family Hx - Medical History Cardio: History of: Cardiac Dysrhythmia (AFIB), CHF, Hypertension, Cardiovascular Problems (DIASTOLIC DYSFUNCTION, CARDIOMYOPATHY,RBBB,) Neurology: History of: Cerebrovascular Accident No history of: Seizures Respiratory: History of: COPD Renal: History of: Renal Problems (RENAL INSUFFICIENCY) Gastrointestinal: History of: GERD Musculoskeletal: History of: Osteoporosis, Musculoskeletal Problems (SPINAL STENOSIS) Other: History of: Miscellaneous Medical Problems (GOUT, VENOUS INSUFFICIENCY OF BOTH LOWER EXTREMITIES) - Family History Family History: Reports;: Family Diabetes, Family Heart Disease, Family Hypertension - Social History Smoking Status: Never smoker Frequency of Alcohol Use: None Type of Drug Use: None 12 point system: reviewed and no additional remarkable complaints except as stated - Constitutional Constitutional: Present: as per HPI - EENT Eyes: Present: as per HPI Ears: Present: as per HPI Nose, mouth and throat: Present: as per HPI - Cardiovascular Cardiovascular: Present: as per HPI, dyspnea, edema - Respiratory Respiratory: Present: as per HPI - Gastrointestinal Gastrointestinal: Present: as per HPI - Genitourinary Genitourinary: Present: as per HPI - Musculoskeletal Musculoskeletal: Present: as per HPI - Neurological Neurological: Present: as per HPI - Psychiatric Psychiatric: Present: as per HPI - Endocrine Endocrine: Present: as per HPI - Hematologic/Lymphatic Hematologic/Lymphatic: Present: as per HPI Exam - Constitutional Vitals: Period Temp Pulse Resp BP Sys/Marie Pulse Ox Last 24 Hr 97.2 F-97.9 F 71-90 16-20 99-144/51-66 95-100 General appearance: normal weight, no acute distress - Head Head exam: Present: normal inspection, normocephalic - Eye Eye exam: Present: other (Lids and conjunctive are unremarkable). Absent: scleral icterus - ENT ENT exam: Present: normal exam, normal oropharynx - Neck Neck exam: Present: normal inspection - Respiratory Respiratory exam: Present: clear to auscultation bilaterally. Absent: rales, rhonchi, wheezes - Cardiovascular Cardiovascular exam: Present: regular rate and rhythm. Absent: diastolic murmur , JVD, systolic murmur - GI/Abdominal GI/Abdominal exam: Present: normal bowel sounds, soft. Absent: ascites, distended, mass, organomegaly, tenderness - Extremities Exam Extremities exam: Present: normal inspection, full ROM - Back Exam Back exam: Present: normal inspection - Neurological Exam Neurological exam: Present: alert, oriented X3 - Psychiatric Psychiatric exam: Present: normal affect, normal mood - Skin Skin exam: Present: normal color, warm, dry Results - Labs CBC & BMP: 01/30/17 04:21 01/30/17 04:21 Lab Results: I have reviewed the past 24 hour labs Quality Measures - VTE Contraindication to Pharmacological VTE Prophylaxis: High Risk of Bleeding
[2017-01-30 21:50] LABS: Hematocrit 28.9 VOL% (35.7-47.0); Hemoglobin 9.5 GM/DL (12.0-16.0)
[2017-01-31 05:17] LABS: Basophils % 0.5 % (0.0-0.8); Eosinophils # 0.3 10*3/uL (0.0-0.87); Eosinophils % 6.1 % (0.00-10.9); Hemoglobin 9.3 GM/DL (12.0-16.0); Immature Granulocytes % 0.2 %; Immature Granulocytes Absolute 0.01 #; Lymphocytes # 1.2 10*3/uL (1.4-4.0); Lymphocytes % 27.3 % (21.3-54.2); Mean Corpuscular HGB Conc 32.1 GM/DL (32-36); Mean Corpuscular Hemoglobin 30 PG (27-34); Mean Corpuscular Volume 92.1 FL (87-102); Mean Platelet Volume 11.5 FL (9.6-12.0); Monocytes # 0.6 10*3/uL (0.11-0.8); Monocytes % 12.7 % (1.7-12.7); Neutrophils # 2.3 10*3/uL (1.4-7.4); Neutrophils % 53.2 % (38.7-73.9); Platelet Count 138 T/CUMM (130-400); Red Blood Count 3.15 MC/CUMM (3.8-5.5); Red Cell Distribution Width 17.2 % (9.3-17.3); White Blood Count 4.4 T/CUMM (4-12)
[2017-01-31 05:48] LABS: Calcium 9.6 MG/DL (8.5-10.1); Magnesium 2.1 MG/DL (1.8-2.4); Osmolality,Calculated 286.5 MOS/KG (273-304)
[2017-01-31] MEDS: ALBUTEROL/IPRATROPIUM 3 ML NEB RESP TX SCH ×4 (06:40→18:50)
[2017-01-31] MEDS: METOCLOPRAMIDE 5 MG TABLET PO SCH ×3 (08:07→15:59)
[2017-01-31] MEDS: SUCRALFATE 1 GM TABLET PO SCH ×3 (08:07→15:59)
[2017-01-31] MEDS: DOCUSATE SODIUM 100 MG CAPSULE PO SCH ×2 (08:32→21:13)
[2017-01-31] MEDS: FERROUS SULFATE 325 MG TABLET PO SCH ×2 (08:32→21:13)
[2017-01-31] MEDS: CARVEDILOL 3.125 MG TABLET PO SCH ×2 (08:33→21:14)
[2017-01-31] MEDS: POTASSIUM CHLORIDE 20 MEQ TABLET PO SCH ×2 (08:33→21:13)
[2017-01-31] MEDS: LISINOPRIL 20 MG TABLET PO SCH (08:33)
[2017-01-31] MEDS: ALLOPURINOL 300 MG TABLET PO SCH (08:33)
[2017-01-31] MEDS: FUROSEMIDE 40 MG/4 ML VIAL IV SCH ×2 (08:33→15:59)
[2017-01-31] MEDS: CITRIC ACID/SODIUM CITRATE 30 ML UDCUP PO SCH ×3 (08:33→21:14)
[2017-01-31] MEDS: PANTOPRAZOLE 40 MG TABLET PO SCH ×2 (08:33→21:13)
[2017-01-31] MEDS: metOLazone 5 MG TABLET PO SCH (08:33)
[2017-01-31 09:55] LABS: Creatinine,Urine Random 25 MG/DL; Total Protein,Urine Random 8 MG/DL; Urea Nitrogen, Urine Random 161 MG/DL
--- NOTE | 2017-01-31 10:02 | Cardiology Progress Note ---
<Kayla López E - Last Filed: 01/31/17 10:02> Assessment and Plan - Time spent with patient Time spent with patient: Less than 30 minutes (1) Acute systolic CHF (congestive heart failure) Status: Acute Assessment and plan: See plan of care listed below. Current Visit: Yes (2) Cardiomyopathy Status: Chronic Assessment and plan: See plan of care listed below. Current Visit: No (3) Atrial fibrillation Status: Chronic Assessment and plan: See plan of care listed below. Current Visit: No Qualifiers: Atrial fibrillation type: persistent Qualified Code(s): I48.1 - Persistent atrial fibrillation (4) Chronic renal insufficiency Status: Acute Assessment and plan: See plan of care listed below. Current Visit: No (5) Anemia Status: Acute Assessment and plan: See plan of care listed below. Current Visit: No Qualifiers: Chronic kidney disease stage: stage 3 (moderate) (6) COPD (chronic obstructive pulmonary disease) Status: Chronic Assessment and plan: See plan of care listed below. Current Visit: Yes (7) GERD (gastroesophageal reflux disease) Status: Chronic Assessment and plan: See plan of care listed below. Current Visit: Yes (8) Obesity Status: Chronic Assessment and plan: See plan of care listed below. Current Visit: Yes Cardiology - PN: Subj Interval history: Interval history: Purchasing Intern: Dr. Monaco PCP: Dr. Donovan Ms. Lynn is a 77-year-old -[place] female with history of persistent atrial fibrillation, cardiomyopathy, diastolic dysfunction, hypertension, prior ischemic stroke, chronic renal insufficiency, bilateral lower extremity venous insufficiency, gout, obesity, COPD, systolic CHF, GERD. Risk factors are significant for: Hypertension, obesity, sedentary lifestyle. She was previously admitted to the hospital on 01/15/17 with anticipation of renal prophylactic saline gently before [facility] on 01/16/17 but was found to be profoundly anemic. Her cath was cancelled and she was found to have multiple antral gastric ulcers and a hiatal hernia. She returned to Dr. Monaco's clinic for follow up on 01/26/17 with dyspnea and edema. She reported 2 pillow orthopnea and difficulty moving her legs due to the heaviness from her edema. She was admitted to the hospital from clinic for diuresis and further workup and treatment of acutely decompensated heart failure and evaluation of worsening anemia with epistaxis. She reports she feels as though her breathing has improved some but he have still not made significant progress towards improving her clinical condition. ASSESSMENT/PLAN: 1. ACUTE ON CHRONIC COMBINED SYSTOLIC AND DIASTOLIC CHF -continue diuretic therapy. Continue beta-merissa and SONAL inhibitor. Nephrology has been consulted for their input regarding her renal insufficiency. She has diuresed well with the addition of metolazone although she continues to have considerable bilateral lower extremity edema. Her weight has gone from 262.6# to 256#. 2. CARDIOMYOPATHY, UNSPECIFIED -echocardiogram done 12/08/2016 revealed EF 35%, grade 3 diastolic dysfunction, severe LVH, moderate to severe mitral regurgitation, mild aortic insufficiency, moderate pulmonic regurgitation, and moderate to severe tricuspid regurgitation. She was also noted to have evidence of pulmonary hypertension with PAP 65 mmHg. 3. PERSISTENT ATRIAL FIBRILLATION - She is currently rate controlled. Continue Coreg 3.125mg PO BID. Chronic anticoagulation was previously discontinued due to profound anemia and she continues to be a poor candidate for anticoagulation. 4. CHRONIC RENAL INSUFFICIENCY - Will consult Nephrology for their input. Creatinine has remained stable at 2.3 with GFR 29. Her renal insufficiency has prohibited left heart catheterization and is been felt that coronary disease is a high probability. 5. ANEMIA -she still has 4+ heme positive stool but has no gross bleeding. GI has been consulted. H&H dropped over the weekend and she required transfusion of 2 units packed red blood cells yesterday. Today H&H is improved to 9.3 and 29. 6. COPD - Continue O2 and breathing treatments PRN. 7. GERD - Continue PPI. 8. OBESITY - Chronic. Dr. Monaco to follow with further plan and addendum. Exam (Progress Note) - Constitutional Vitals: Period Temp Pulse Resp BP Sys/Marie Pulse Ox Last 24 Hr 96.9 F-98.4 F 71-92 17-20 105-140/53-75 97-100 Exam: General: Present: Appears Well, No Apparent Distress. Pleasant and cooperative. Appears comfortable. HEENT: Present: PERRL, Normocephaly, atraumatic. Mucus Membranes Moist. No jaundice noted. Conjunctiva moist and clear, sclerae anicteric Neck: Present: Supple Neck, Midline Trachea, No Masses, No Bruit, No tenderness Cardiac: Present: Regular Rate and Rhythm, Systolic Murmur, no chest wall tenderness Lungs: Present: End-expiratory wheezes noted posteriorly throughout all lung gonzalez, no rhonchi. Neuro: Present: Awake, alert, and oriented x3. Moves all extremities well without hemiparesis or paralysis. Grossly Intact. Absent: Resting Tremor, Essential Tremor Abdomen: Present: Soft, Active Bowel Sounds, No Masses, Non-Tender, nondistended. No abdominal bruit or thrill noted. Skin: Present: Clear. Absent: Rash, No skin breakdown. Back: Normal inspection, no vertebral tenderness. Musculoskeletal: Present: No Fluid Collection, No Pain Extremities: Present: Normal Gait, No Clubbing, No Cyanosis, Upper Extr. Pulses 2+, Lower Extr. Pulses 2+, 4+ pitting edema to BLE. Capillary refill less than 3 seconds. Result/EKG - Labs CBC & BMP: 01/31/17 04:57 01/31/17 04:57 Lab Results: I have reviewed the past 24 hour labs Labs: Laboratory Results - last 24 hr 01/30/17 01/30/17 01/30/17 04:21 21:37 Unknown WBC RBC Hgb 9.5 L D Hct 28.9 L MCV MCH MCHC RDW Plt Count MPV Neut % (Auto) Lymph % (Auto) Trimble % (Auto) Eos % (Auto) Baso % (Auto) Neut # (Auto) Lymph # (Auto) Trimble # (Auto) Eos # (Auto) Baso # (Auto) Immature Gran % Nucleated RBC % Immature Gran # Nucleated RBCs # Sodium Potassium Chloride Carbon Dioxide Anion Gap BUN Creatinine GFR Calculation BUN/Creatinine Ratio Glucose Calculated Osmolality Calcium Magnesium Blood Type O POSITIVE O POSITIVE Antibody Screen Negative Crossmatch See Detail 01/31/17 01/31/17 04:57 04:57 WBC 4.4 RBC 3.15 L D Hgb 9.3 L Hct 29.0 L MCV 92.1 MCH 30 MCHC 32.1 RDW 17.2 Plt Count 138 MPV 11.5 Neut % (Auto) 53.2 Lymph % (Auto) 27.3 Trimble % (Auto) 12.7 Eos % (Auto) 6.1 Baso % (Auto) 0.5 Neut # (Auto) 2.3 Lymph # (Auto) 1.2 L Trimble # (Auto) 0.6 Eos # (Auto) 0.3 Baso # (Auto) 0.0 Immature Gran % 0.2 Nucleated RBC % 0.0 Immature Gran # 0.01 Nucleated RBCs # 0.00 Sodium 139 Potassium 4.0 Chloride 94 L Carbon Dioxide 39 H Anion Gap 10.0 BUN 40 H Creatinine 2.30 H GFR Calculation 29 BUN/Creatinine Ratio 17.00 Glucose 91 Calculated Osmolality 286.5 Calcium 9.6 Magnesium 2.1 Blood Type Antibody Screen Crossmatch - EKG EKG results: interpreted by me EKG shows: atrial fibrillation Quality Measures - VTE Contraindication to Pharmacological VTE Prophylaxis: High Risk of Bleeding <Beth Monaco - Last Filed: 01/31/17 10:19> Assessment and Plan (1) Acute systolic CHF (congestive heart failure) Status: Acute Assessment and plan: We will need at some point the catheter. It may be that her renal function has stabilized and this may be a window of opportunity. I will see what her H&H are tomorrow along with her creatinine. Of course given her degree of anemia and heme positive stools cath will be diagnostic only. Not a candidate for intervention based on comorbidities. Current Visit: Yes (2) Obesity Status: Chronic Current Visit: Yes (3) Anemia Status: Acute Assessment and plan: Better post transfusion Current Visit: No Qualifiers: Qualified Code(s): N18.3 - Chronic kidney disease, stage 3 (moderate); D63.1 - Anemia in chronic kidney disease (4) Atrial fibrillation Status: Chronic Assessment and plan: This is very difficult given her anemia and continued apparent intestinal blood loss with worsening anemia and heme positive stools. Certainly there is lots reasons for her to have dark stools and also medications that can make her potentially heme positive. Current Visit: No Qualifiers: Qualified Code(s): I48.1 - Persistent atrial fibrillation (5) Cardiomyopathy Status: Chronic Current Visit: No (6) Chronic renal insufficiency, stage III (moderate) Status: Chronic Current Visit: No (7) GI bleed Status: Chronic Current Visit: No Cardiology - PN: Subj Interval history: Ms. Lynn states she subjectively feels better. The assistance of GI and nephrology is greatly appreciated. I discussed examined with Ms. López as above assessment and plan. The patient is subjectively better. Her creatinine is remained stable her anemia is better after transfusion. She has not had any pain. She still does not have her lower extremities compressed I think this is partially mechanical from venous insufficiency and sedentary lifestyle as well as complicated by her renal insufficiency and third spacing of fluid. Exam (Progress Note) - Constitutional Vitals: Period Temp Pulse Resp BP Sys/Marie Pulse Ox Last 24 Hr 96.9 F-98.4 F 71-92 17-20 105-140/53-75 97-100 Exam: She is obese or edema in her lower extremities without much change. This is chronic Result/EKG - Labs CBC & BMP: 01/31/17 04:57 01/31/17 04:57 Labs: Laboratory Results - last 24 hr 01/30/17 01/30/17 01/30/17 04:21 21:37 Unknown WBC RBC Hgb 9.5 L D Hct 28.9 L MCV MCH MCHC RDW Plt Count MPV Neut % (Auto) Lymph % (Auto) Trimble % (Auto) Eos % (Auto) Baso % (Auto) Neut # (Auto) Lymph # (Auto) Trimble # (Auto) Eos # (Auto) Baso # (Auto) Immature Gran % Nucleated RBC % Immature Gran # Nucleated RBCs # Sodium Potassium Chloride Carbon Dioxide Anion Gap BUN Creatinine GFR Calculation BUN/Creatinine Ratio Glucose Calculated Osmolality Calcium Magnesium Urine Eosinophils Ur Random Creatinine U Random Total Protein Ur Random Urea Nitrogn Blood Type O POSITIVE O POSITIVE Antibody Screen Negative Crossmatch See Detail 01/31/17 01/31/17 01/31/17 04:57 04:57 09:15 WBC 4.4 RBC 3.15 L D Hgb 9.3 L Hct 29.0 L MCV 92.1 MCH 30 MCHC 32.1 RDW 17.2 Plt Count 138 MPV 11.5 Neut % (Auto) 53.2 Lymph % (Auto) 27.3 Trimble % (Auto) 12.7 Eos % (Auto) 6.1 Baso % (Auto) 0.5 Neut # (Auto) 2.3 Lymph # (Auto) 1.2 L Trimble # (Auto) 0.6 Eos # (Auto) 0.3 Baso # (Auto) 0.0 Immature Gran % 0.2 Nucleated RBC % 0.0 Immature Gran # 0.01 Nucleated RBCs # 0.00 Sodium 139 Potassium 4.0 Chloride 94 L Carbon Dioxide 39 H Anion Gap 10.0 BUN 40 H Creatinine 2.30 H GFR Calculation 29 BUN/Creatinine Ratio 17.00 Glucose 91 Calculated Osmolality 286.5 Calcium 9.6 Magnesium 2.1 Urine Eosinophils None seen Ur Random Creatinine U Random Total Protein Ur Random Urea Nitrogn Blood Type Antibody Screen Crossmatch 01/31/17 09:15 WBC RBC Hgb Hct MCV MCH MCHC RDW Plt Count MPV Neut % (Auto) Lymph % (Auto) Trimble % (Auto) Eos % (Auto) Baso % (Auto) Neut # (Auto) Lymph # (Auto) Trimble # (Auto) Eos # (Auto) Baso # (Auto) Immature Gran % Nucleated RBC % Immature Gran # Nucleated RBCs # Sodium Potassium Chloride Carbon Dioxide Anion Gap BUN Creatinine GFR Calculation BUN/Creatinine Ratio Glucose Calculated Osmolality Calcium Magnesium Urine Eosinophils Ur Random Creatinine 25 U Random Total Protein 8 Ur Random Urea Nitrogn 161 Blood Type Antibody Screen Crossmatch
--- NOTE | 2017-01-31 10:05 | Nephrology Consult Note ---
History of Present Illness Chief complaint: Referred for chronic kidney disease History of present illness: Ms. Lynn is a 77 year old female admitted for SOB. Diuresed net 8L since admission by Is/Os. Recent admission for GIB, EGD revealed ulcers and + H. pylori. She denies being on antibiotics for treatment of H.pylori. States her breathing is better since admission. PMHX: CHF, cardiomyopathy, anemia, stroke, HTN, Afib, gout, COPD, GERD, obesity. Home Medications Medication Instructions Recorded Confirmed Type Albuterol Sulfate 2.5 mg IH Q6HR 01/11/17 01/26/17 History Albuterol Sulfate [Proair HFA] 2 puff INH Q6H PRN 01/11/17 01/26/17 History Allopurinol 300 mg PO DAILY 01/11/17 01/26/17 History Aspirin [Aspirin EC] 81 mg PO DAILY 01/11/17 01/26/17 History Ferrous Sulfate [Iron] 325 mg PO BID 01/11/17 01/26/17 History Lisinopril 20 mg PO DAILY 01/11/17 01/26/17 History Metoclopramide HCl 10 mg PO BID 01/11/17 01/26/17 History Montelukast Tab [Singulair Tab] 10 mg PO BEDTIME 01/11/17 01/26/17 History Potassium Chloride 20 meq PO BID 01/11/17 01/26/17 History hydrALAZINE TAB [Apresoline Tab] 50 mg PO BID 01/11/17 01/26/17 History Bisoprol/Hydrochlorothiazide 0.5 tablet PO DAILY #0 01/18/17 01/26/17 Rx [Bisoprolol-Hctz 5-6.25 mg Tab] Citric Acid/Sodium Citrate 30 ml PO TID #1 bottle 01/18/17 01/26/17 Rx [Bicitra] Furosemide Tab [Lasix Tab] 40 mg PO BID #0 01/18/17 01/26/17 Rx Pantoprazole Tab [Protonix Tab] 40 mg PO DAILY #30 tablet 01/18/17 01/26/17 Rx Allergies Allergy/AdvReac Type Severity Reaction Status Date / Time doxycycline Allergy Severe RASH Verified 01/17/17 14:13 Medical,Surgical,& Family Hx - Medical History Cardio: History of: Cardiac Dysrhythmia (AFIB), CHF, Hypertension, Cardiovascular Problems (DIASTOLIC DYSFUNCTION, CARDIOMYOPATHY,RBBB,) Neurology: History of: Cerebrovascular Accident No history of: Seizures Respiratory: History of: COPD Renal: History of: Renal Problems (RENAL INSUFFICIENCY) Gastrointestinal: History of: GERD Musculoskeletal: History of: Osteoporosis, Musculoskeletal Problems (SPINAL STENOSIS) Other: History of: Miscellaneous Medical Problems (GOUT, VENOUS INSUFFICIENCY OF BOTH LOWER EXTREMITIES) - Family History Family History: Reports;: Family Diabetes, Family Heart Disease, Family Hypertension - Social History Smoking Status: Never smoker Frequency of Alcohol Use: None Type of Drug Use: None Exam - Vital Signs Vital signs: Period Temp Pulse Resp BP Sys/Marie Pulse Ox Last 24 Hr 96.9 F-98.4 F 71-92 17-20 105-140/53-75 97-100 - General Appearance General appearance: obese, chronically ill EENT: ATNC, PERRL, mucous membranes dry, hearing intact, vision intact Neck: no JVD, no thyromegaly Respiratory: no kyphosis, wheezing Cardiology: no murmurs, no rub, edema (2+ pitting, large amount of adipose tissue) Gastrointestinal: normoactive bowel sounds, no tenderness, obese Integumentary: no rash, warm and dry Neurologic: no focal deficit, no asterixis, alert and oriented x3 Musculoskeletal: no deformities, no erythema Psychiatric: mood/affect appropriate, cooperative Results - Labs CBC & BMP: 01/31/17 04:57 01/31/17 04:57 Assessment and Plan (1) CKD (chronic kidney disease) stage 4, GFR 15-29 ml/min Problem details: eGFFR 29cc/min. Likely prerenal. No indication for renal replacement therapy at this time. Status: Acute Assessment and plan: Urinary indices ordered to assess prerenal vs intrinsic renal dz. Current Visit: Yes (2) H. pylori infection Problem details: On recent admission with EGD. Check to ensure treated. Status : Acute Current Visit: Yes
--- NOTE | 2017-01-31 11:17 | Gastrointestinal Progress Note ---
Assessment and Plan (1) Anemia Status: Acute Assessment and plan: 01/31-hemoglobin improved following blood transfusion. No overt bleeding reported. Tolerating diet at present time. Records from [facility] still pending. Plan addendum follow Dr. Morrell. 01/30-admitted with shortness of breath and edema, findings of anemia with drop in hemoglobin over weekend without overt bleeding. 4+ stools for occult blood found. To be transfused 2 units of packed red blood cells today. Hemoglobin at 8.2 on admission now down to 7.8. Recent EGD with last hospitalization, findings of gastric antral ulcers. Plan an addendum to followed by Dr. Morrell. Current Visit: No Qualifiers: Chronic kidney disease stage: stage 3 (moderate) Gastroenterology - PN: Subj Interval history: CC: Anemia Patient is seen awake and alert sitting up in chair. States she did not rest well last night but states this is normal for her at home. She denies any overt bleeding. Hemoglobin is improved at 9.3 following 2 units of packed red blood cells on yesterday. She denies any abdominal pain, nausea vomiting. She is tolerating her diet at this time. Endoscopy records are still pending from [facility] at present. ROS: Denies shortness of breath or chest pain Exam (Progress Note) - Constitutional Vitals: Period Temp Pulse Resp BP Sys/Marie Pulse Ox Last 24 Hr 96.9 F-98.4 F 71-92 17-20 105-140/53-75 97-100 - Other Additional findings: General appearance: normal weight, no acute distress - Head Head exam: Present: normal inspection, normocephalic - Eye Eye exam: Present: other (Lids and conjunctive are unremarkable). Absent: scleral icterus - ENT ENT exam: Present: normal exam, normal oropharynx - Neck Neck exam: Present: normal inspection - Respiratory Respiratory exam: Present: clear to auscultation bilaterally. Absent: rales, rhonchi, wheezes - Cardiovascular Cardiovascular exam: Present: regular rate and rhythm. Absent: diastolic murmur , JVD, systolic murmur - GI/Abdominal GI/Abdominal exam: Present: normal bowel sounds, soft. Absent: ascites, distended, mass, organomegaly, tenderness - Extremities Exam Extremities exam: Present: normal inspection, full ROM - Back Exam Back exam: Present: normal inspection - Neurological Exam Neurological exam: Present: alert, oriented X3 - Psychiatric Psychiatric exam: Present: normal affect, normal mood - Skin Skin exam: Present: normal color, warm, dry Results - Labs CBC & BMP: 01/31/17 04:57 01/31/17 04:57 Lab Results: I have reviewed the past 24 hour labs
[2017-01-31] MEDS: LACTULOSE 20 GM/30 ML UDCUP PO PRN (14:16)
[2017-02-01] MEDS: ALBUTEROL/IPRATROPIUM 3 ML NEB RESP TX SCH ×4 (00:01→19:38)
[2017-02-01 04:15] LABS: Basophils % 0.2 % (0.0-0.8); Eosinophils # 0.3 10*3/uL (0.0-0.87); Eosinophils % 7.1 % (0.00-10.9); Hematocrit 28.9 VOL% (35.7-47.0); Hemoglobin 9.3 GM/DL (12.0-16.0); Immature Granulocytes % 0.2 %; Immature Granulocytes Absolute 0.01 #; Lymphocytes # 0.9 10*3/uL (1.4-4.0); Lymphocytes % 22.1 % (21.3-54.2); Mean Corpuscular HGB Conc 32.2 GM/DL (32-36); Mean Corpuscular Hemoglobin 30 PG (27-34); Mean Platelet Volume 11.8 FL (9.6-12.0); Monocytes # 0.7 10*3/uL (0.11-0.8); Monocytes % 15.8 % (1.7-12.7); Neutrophils # 2.3 10*3/uL (1.4-7.4); Neutrophils % 54.6 % (38.7-73.9); Platelet Count 136 T/CUMM (130-400); Red Blood Count 3.14 MC/CUMM (3.8-5.5); Red Cell Distribution Width 16.8 % (9.3-17.3); White Blood Count 4.3 T/CUMM (4-12)
[2017-02-01 04:43] LABS: Calcium 10.1 MG/DL (8.5-10.1); Magnesium 1.9 MG/DL (1.8-2.4); Osmolality,Calculated 289.4 MOS/KG (273-304)
[2017-02-01 04:55] LABS: Eosinophils 5 % (0-10); Lymphocytes 20 % (20-55); Segmented Neutrophils 67 % (50-85)
[2017-02-01 04:57] LABS: Hypochromasia 2+; Platelet Estimate Normal; Target Cells Few; Total Cells Counted 100
[2017-02-01] MEDS: SUCRALFATE 1 GM TABLET PO SCH ×3 (07:47→15:55)
[2017-02-01] MEDS: METOCLOPRAMIDE 5 MG TABLET PO SCH ×3 (07:47→15:55)
[2017-02-01] MEDS: FUROSEMIDE 40 MG/4 ML VIAL IV SCH ×2 (07:48→15:55)
[2017-02-01] MEDS: LISINOPRIL 20 MG TABLET PO SCH (08:42)
[2017-02-01] MEDS: POTASSIUM CHLORIDE 20 MEQ TABLET PO SCH ×2 (08:43→21:46)
[2017-02-01] MEDS: FERROUS SULFATE 325 MG TABLET PO SCH ×2 (08:43→21:47)
[2017-02-01] MEDS: PANTOPRAZOLE 40 MG TABLET PO SCH ×2 (08:43→21:54)
[2017-02-01] MEDS: ALLOPURINOL 300 MG TABLET PO SCH (08:43)
[2017-02-01] MEDS: DOCUSATE SODIUM 100 MG CAPSULE PO SCH ×2 (08:44→21:47)
[2017-02-01] MEDS: CITRIC ACID/SODIUM CITRATE 30 ML UDCUP PO SCH ×3 (08:44→21:47)
[2017-02-01] MEDS: metOLazone 5 MG TABLET PO SCH (08:44)
[2017-02-01] MEDS: CARVEDILOL 3.125 MG TABLET PO SCH ×2 (08:44→21:46)
--- NOTE | 2017-02-01 10:38 | Cardiology Progress Note ---
<Kayla López E - Last Filed: 02/01/17 10:43> Assessment and Plan - Time spent with patient Time spent with patient: Less than 30 minutes (1) Acute systolic CHF (congestive heart failure) Status: Acute Assessment and plan: See plan of care listed below. Current Visit: Yes (2) Cardiomyopathy Status: Chronic Assessment and plan: See plan of care listed below. Current Visit: No (3) Atrial fibrillation Status: Chronic Assessment and plan: See plan of care listed below. Current Visit: No Qualifiers: Atrial fibrillation type: persistent Qualified Code(s): I48.1 - Persistent atrial fibrillation (4) Chronic renal insufficiency Status: Acute Assessment and plan: See plan of care listed below. Current Visit: No (5) Anemia Status: Acute Assessment and plan: See plan of care listed below. Current Visit: No Qualifiers: Chronic kidney disease stage: stage 3 (moderate) (6) COPD (chronic obstructive pulmonary disease) Status: Chronic Assessment and plan: See plan of care listed below. Current Visit: Yes (7) GERD (gastroesophageal reflux disease) Status: Chronic Assessment and plan: See plan of care listed below. Current Visit: Yes (8) Obesity Status: Chronic Assessment and plan: See plan of care listed below. Current Visit: Yes Cardiology - PN: Subj Interval history: Research Physiologist: Dr. Monaco PCP: Dr. Donovan Ms. Lynn is a 77-year-old -[place] female with history of persistent atrial fibrillation, cardiomyopathy, diastolic dysfunction, hypertension, prior ischemic stroke, chronic renal insufficiency, bilateral lower extremity venous insufficiency, gout, obesity, COPD, systolic CHF, GERD. Risk factors are significant for: Hypertension, obesity, sedentary lifestyle. She was previously admitted to the hospital on 01/15/17 with anticipation of renal prophylactic saline gently before [facility] on 01/16/17 but was found to be profoundly anemic. Her cath was cancelled and she was found to have multiple antral gastric ulcers and a hiatal hernia. She returned to Dr. Monaco's clinic for follow up on 01/26/17 with dyspnea and edema. She reported 2 pillow orthopnea and difficulty moving her legs due to the heaviness from her edema. She was admitted to the hospital from clinic for diuresis and further workup and treatment of acutely decompensated heart failure and evaluation of worsening anemia with epistaxis. She reports she feels as though she is improving aside from her wheezing which persists. She still does not have her lower extremities compressed; this may be partially mechanical from venous insufficiency and sedentary lifestyle as well as complicated by her renal insufficiency and third spacing of fluid. Apparently we do not have TEDs will fit her lower extremities. We will try gentle compression with José Miguel bandages. ASSESSMENT/PLAN: 1. ACUTE ON CHRONIC COMBINED SYSTOLIC AND DIASTOLIC CHF -continue diuretic therapy. Continue beta-merissa and JOSÉ MIGUEL inhibitor. Nephrology has been consulted for their input regarding her renal insufficiency. She has diuresed well with the addition of metolazone although she continues to have considerable bilateral lower extremity edema. Her weight has gone from 262.6# to 256#. She still needs to undergo heart catheterization. If her renal function H&H remained stable, it may be possible to proceed with diagnostic catheterization. She would not be a candidate for intervention based on her comorbidities including anemia and heme-positive stools. 2. CARDIOMYOPATHY, UNSPECIFIED -echocardiogram done 12/08/2016 revealed EF 35%, grade 3 diastolic dysfunction, severe LVH, moderate to severe mitral regurgitation, mild aortic insufficiency, moderate pulmonic regurgitation, and moderate to severe tricuspid regurgitation. She was also noted to have evidence of pulmonary hypertension with PAP 65 mmHg. 3. PERSISTENT ATRIAL FIBRILLATION - She is currently rate controlled. Continue Coreg 3.125mg PO BID. Treatment is very difficult given her anemia and continued apparent intestinal blood loss with worsening anemia and heme positive stools.Certainly there are lots reasons for her to have dark stools and also medications that can make her potentially heme positive. 4. CHRONIC RENAL INSUFFICIENCY - Will consult Nephrology for their input. Creatinine has remained stable at 2.3 with GFR 29. Her renal insufficiency has prohibited left heart catheterization and is been felt that coronary disease is a high probability. 5. ANEMIA -she still has 4+ heme positive stool but has no gross bleeding. GI has been consulted. H&H dropped over the weekend and she required transfusion of 2 units packed red blood cells yesterday. H&H is stable today at 9.3 and 28.9 6. COPD - Continue O2 and breathing treatments PRN. Will resume her home dose of singulair QHS. 7. GERD - Continue PPI. 8. OBESITY - Chronic. Dr. Monaco to follow with further plan and addendum. Exam (Progress Note) - Constitutional Vitals: Period Temp Pulse Resp BP Sys/Marie Pulse Ox Last 24 Hr 97.5 F-98.4 F 73-112 18-20 108-145/57-83 95-100 Exam: General: Present: Appears Well, No Apparent Distress. Pleasant and cooperative. Appears comfortable. HEENT: Present: PERRL, Normocephaly, atraumatic. Mucus Membranes Moist. No jaundice noted. Conjunctiva moist and clear, sclerae anicteric Neck: Present: Supple Neck, Midline Trachea, No Masses, No Bruit, No tenderness Cardiac: Present: Regular Rate and Rhythm, Systolic Murmur, no chest wall tenderness Lungs: Present: End-expiratory wheezes noted posteriorly throughout all lung gonzalez, no rhonchi. Neuro: Present: Awake, alert, and oriented x3. Moves all extremities well without hemiparesis or paralysis. Grossly Intact. Absent: Resting Tremor, Essential Tremor Abdomen: Present: Soft, Active Bowel Sounds, No Masses, Non-Tender, nondistended. No abdominal bruit or thrill noted. Skin: Present: Clear. Absent: Rash, No skin breakdown. Back: Normal inspection, no vertebral tenderness. Musculoskeletal: Present: No Fluid Collection, No Pain Extremities: Present: Normal Gait, No Clubbing, No Cyanosis, Upper Extr. Pulses 2+, Lower Extr. Pulses 2+, 4+ pitting edema to BLE (chronic). Capillary refill less than 3 seconds. Result/EKG - Labs CBC & BMP: 02/01/17 03:37 02/01/17 03:37 Lab Results: I have reviewed the past 24 hour labs Labs: Laboratory Results - last 24 hr 02/01/17 02/01/17 03:37 03:37 WBC 4.3 RBC 3.14 L Hgb 9.3 L Hct 28.9 L MCV 92.0 MCH 30 MCHC 32.2 RDW 16.8 Plt Count 136 MPV 11.8 Neut % (Auto) 54.6 Lymph % (Auto) 22.1 [place] % (Auto) 15.8 H Eos % (Auto) 7.1 Baso % (Auto) 0.2 Neut # (Auto) 2.3 Lymph # (Auto) 0.9 L [place] # (Auto) 0.7 Eos # (Auto) 0.3 Baso # (Auto) 0.0 Total Counted 100 Immature Gran % 0.2 Nucleated RBC % 0.0 Immature Gran # 0.01 Segmented Neutrophils 67 Lymphocytes 20 Monocytes 8 Eosinophils 5 Nucleated RBCs # 0.00 Platelet Estimate Normal Hypochromasia 2+ Target Cells Few Sodium 140 Potassium 4.0 Chloride 93 L Carbon Dioxide 43 H Anion Gap 8.0 BUN 42 H Creatinine 2.40 H GFR Calculation 28 BUN/Creatinine Ratio 17.00 Glucose 93 Calculated Osmolality 289.4 Calcium 10.1 Magnesium 1.9 - EKG EKG results: interpreted by me EKG shows: atrial fibrillation Quality Measures - VTE Contraindication to Pharmacological VTE Prophylaxis: High Risk of Bleeding <Beth Monaco - Last Filed: 02/01/17 12:39> Assessment and Plan (1) Acute systolic CHF (congestive heart failure) Status: Acute Current Visit: Yes (2) Obesity Status: Chronic Current Visit: Yes (3) Anemia Status: Acute Current Visit: No Qualifiers: Chronic kidney disease stage: stage 3 (moderate) (4) Atrial fibrillation Status: Chronic Current Visit: No Qualifiers: Atrial fibrillation type: persistent Qualified Code(s): I48.1 - Persistent atrial fibrillation (5) Cardiomyopathy Status: Chronic Current Visit: No (6) Chronic renal insufficiency, stage III (moderate) Status: Chronic Current Visit: No (7) GI bleed Status: Chronic Current Visit: No (8) H. pylori infection Problem details: On recent admission with EGD. Check to ensure treated. Status : Acute Current Visit: Yes (9) Mitral regurgitation Status: Acute Current Visit: Yes (10) Acute bronchitis Status: Acute Current Visit: Yes Cardiology - PN: Subj Interval history: Ms. Lynn is not making much progress. I appreciate the help of Dr. Pendleton. She now has some productive sputum that is brown and she has been started on antibiotics. She is been experiencing wheezing and prolonged expiratory phase that I thought was from cardiac source but she also has experienced a significant amount of rales. She clearly has worsened over the last 24 hours from a respiratory standpoint. H. pylori infection is noted and the patient is hemoglobin is remained stable. Her creatinine has been relatively stable. The very difficult situation I think she is best managed medically. Exam (Progress Note) - Constitutional Vitals: Period Temp Pulse Resp BP Sys/Marie Pulse Ox Last 24 Hr 97.5 F-98.4 F 73-112 18-20 108-145/57-83 95-100 Exam: I grew the above except the patient in atrial fibrillation she is irregular heart rate is controlled. She did have some brown/yellow sputum production and a cup while I was present. Result/EKG - Labs CBC & BMP: 02/01/17 03:37 02/01/17 03:37 Labs: Laboratory Results - last 24 hr 02/01/17 02/01/17 03:37 03:37 WBC 4.3 RBC 3.14 L Hgb 9.3 L Hct 28.9 L MCV 92.0 MCH 30 MCHC 32.2 RDW 16.8 Plt Count 136 MPV 11.8 Neut % (Auto) 54.6 Lymph % (Auto) 22.1 [place] % (Auto) 15.8 H Eos % (Auto) 7.1 Baso % (Auto) 0.2 Neut # (Auto) 2.3 Lymph # (Auto) 0.9 L [place] # (Auto) 0.7 Eos # (Auto) 0.3 Baso # (Auto) 0.0 Total Counted 100 Immature Gran % 0.2 Nucleated RBC % 0.0 Immature Gran # 0.01 Segmented Neutrophils 67 Lymphocytes 20 Monocytes 8 Eosinophils 5 Nucleated RBCs # 0.00 Platelet Estimate Normal Hypochromasia 2+ Target Cells Few Sodium 140 Potassium 4.0 Chloride 93 L Carbon Dioxide 43 H Anion Gap 8.0 BUN 42 H Creatinine 2.40 H GFR Calculation 28 BUN/Creatinine Ratio 17.00 Glucose 93 Calculated Osmolality 289.4 Calcium 10.1 Magnesium 1.9
--- NOTE | 2017-02-01 11:09 | Gastrointestinal Progress Note ---
Assessment and Plan (1) Anemia Status: Acute Assessment and plan: 02/01-Hgb stable at 9.3. No overt bleeding. [facility] records still pending. Plan and addendum to follow by Dr Morrell. 01/31-hemoglobin improved following blood transfusion. No overt bleeding reported. Tolerating diet at present time. Records from [facility] still pending. Plan addendum follow Dr. Morrell. 01/30-admitted with shortness of breath and edema, findings of anemia with drop in hemoglobin over weekend without overt bleeding. 4+ stools for occult blood found. To be transfused 2 units of packed red blood cells today. Hemoglobin at 8.2 on admission now down to 7.8. Recent EGD with last hospitalization, findings of gastric antral ulcers. Plan an addendum to followed by Dr. Morrell. Current Visit: No Qualifiers: Chronic kidney disease stage: stage 3 (moderate) Gastroenterology - PN: Subj Interval history: CC: Anemia Pt is seen, awake and alert sitting up in chair. States that she is feeling about the same. Denies any abdominal pain, nausea or vomiting. Denies any overt bleeding. Hemoglobin is stable at 9.3. No [facility] records noted at this time regarding prior colonoscopy. Abdomen is soft, nontender. ROS: Denies SOB or chest pain Exam (Progress Note) - Constitutional Vitals: Period Temp Pulse Resp BP Sys/Marie Pulse Ox Last 24 Hr 97.5 F-98.4 F 73-112 18-20 108-145/57-83 95-100 - Other Additional findings: General appearance: normal weight, no acute distress - Head Head exam: Present: normal inspection, normocephalic - Eye Eye exam: Present: other (Lids and conjunctive are unremarkable). Absent: scleral icterus - ENT ENT exam: Present: normal exam, normal oropharynx - Neck Neck exam: Present: normal inspection - Respiratory Respiratory exam: Present: clear to auscultation bilaterally. Absent: rales, rhonchi, wheezes - Cardiovascular Cardiovascular exam: Present: regular rate and rhythm. Absent: diastolic murmur , JVD, systolic murmur - GI/Abdominal GI/Abdominal exam: Present: normal bowel sounds, soft. Absent: ascites, distended, mass, organomegaly, tenderness - Extremities Exam Extremities exam: Present: normal inspection, full ROM - Back Exam Back exam: Present: normal inspection - Neurological Exam Neurological exam: Present: alert, oriented X3 - Psychiatric Psychiatric exam: Present: normal affect, normal mood - Skin Skin exam: Present: normal color, warm, dry Results - Labs CBC & BMP: 02/01/17 03:37 02/01/17 03:37 Lab Results: I have reviewed the past 24 hour labs
--- NOTE | 2017-02-01 11:33 | Nephrology Progress Note ---
Nephrology - PN: Subj Interval history: Pt denies SOB/pain. States breathing better. Creatinine stable at 2.4, CKD stage 4. Exp wheezes bilat again today. FeUrea 37% c/w intrinsic renal damage, not prerenal. PATIENT NAME : Hayley Lynn ORDERING DR : ELEONORA MCCARTNEY MD CLINICAL HX: Anemia - Positive stool for occult blood POST-OP DX: Ulceratoin SPECIMEN INFO: Gastric biopsy GROSS DESCRIPTION: The specimen is received in formalin labeled with the patients name and consists of two martinez tissue fragments measuring 0.8 x 0.2 cm collectively. Submitted in one cassette. DIAGNOSIS FOR HAYLEY LYNN: GASTRIC BIOPSIES: Marked chronic antral gastritis, active with ulceration. Special stain POSITIVE for H. pylori. COLLECTED DATE: 01/17/2017 [facility] REPORT DATE: 01/18/2017 ELECTRONICALLY SIGNED BY: Collins Martin M.D. 01/18/2017 - 9:51:15 Exam (PN)-Nephrology - Vital Signs Vital signs: Period Temp Pulse Resp BP Sys/Marie Pulse Ox Last 24 Hr 97.5 F-98.4 F 73-112 18-20 108-145/57-83 95-100 - General Appearance General appearance: well-developed, obese EENT: ATNC, PERRL, mucous membranes dry, hearing intact, vision intact Neck: no JVD, no thyromegaly Respiratory: no kyphosis, clear Cardiology: no murmurs Gastrointestinal: normoactive bowel sounds, no tenderness Integumentary: no rash, warm and dry Neurologic: no focal deficit, no asterixis, alert and oriented x3 Musculoskeletal: no deformities, no erythema Psychiatric: mood/affect appropriate, cooperative - Lab 02/01/17 03:37 02/01/17 03:37 Most recent lab results Calcium 10.1 MG/DL (8.5-10.1) 02/01/17 03:37 Magnesium 1.9 MG/DL (1.8-2.4) 02/01/17 03:37 Assessment and Plan (1) CKD (chronic kidney disease) stage 4, GFR 15-29 ml/min Problem details: eGFFR 29cc/min. Likely prerenal. No indication for renal replacement therapy at this time. Status: Acute Assessment and plan: Urinary indices c/w intrinsic renal process (ATN) Current Visit: Yes (2) H. pylori infection Problem details: On recent admission with EGD. Check to ensure treated. Status : Acute Current Visit: Yes
--- NOTE | 2017-02-01 11:54 | Pulmonology Consult Note ---
Assessment and Plan (1) Acute on chronic systolic (congestive) heart failure Status: Acute Assessment and plan: Ejection fraction 35% with severe mitral regurgitation as the cause for congestive heart failure. Also likely fluid retention related to renal insufficiency. There is no chest x-ray to review to see whether she is ahead on fluids now or not. Will order chest x-ray. Current Visit: Yes (2) Mitral regurgitation Status: Acute Assessment and plan: Apparently severe mitral regurgitation. Current Visit: Yes (3) Acute bronchitis Status: Acute Assessment and plan: She is wheezing and coughing and has had some sputum production. Not sure whether she has a superimposed bronchitis atop her congestive heart failure. Chest x-ray will help us with that. We will go ahead and empirically put her on Levaquin. She is on bronchodilators already. Will not use steroids. Current Visit: Yes (4) Chronic renal insufficiency Status: Acute Assessment and plan: Creatinine around 2.2. Making it difficult to diurese her Current Visit: No (5) Cardiomyopathy Status: Chronic Assessment and plan: Ejection fraction 35%. Defer to cardiology. Current Visit: No (6) Atrial fibrillation Status: Chronic Assessment and plan: Chronic anticoagulants. Current Visit: No Qualifiers: Atrial fibrillation type: persistent Qualified Code(s): I48.1 - Persistent atrial fibrillation History of Present Illness Chief complaint: Cough wheezing shortness of breath History of present illness: Ms. Lynn is a 77 year old female who was admitted about 4 days ago with increased cough and shortness of breath. She has congestive heart failure with an ejection fraction of 35% and severe mitral regurgitation. Also has renal insufficiency. She was going to have a heart cath but that has not been done. She has been on diuretics but her weight seems fairly stable. Dr. Herron asked me to see her today because she was wheezing. Looking back over the last several days notes she apparently has been wheezing since admission. She is a non-smoker but says she used to chew tobacco. She does not have any known chronic lung disease. She has been diagnosed as congestive heart failure. She has renal insufficiency. Home Medications Medication Instructions Recorded Confirmed Type Albuterol Sulfate 2.5 mg IH Q6HR 01/11/17 01/26/17 History Albuterol Sulfate [Proair HFA] 2 puff INH Q6H PRN 01/11/17 01/26/17 History Allopurinol 300 mg PO DAILY 01/11/17 01/26/17 History Aspirin [Aspirin EC] 81 mg PO DAILY 01/11/17 01/26/17 History Ferrous Sulfate [Iron] 325 mg PO BID 01/11/17 01/26/17 History Lisinopril 20 mg PO DAILY 01/11/17 01/26/17 History Metoclopramide HCl 10 mg PO BID 01/11/17 01/26/17 History Montelukast Tab [Singulair Tab] 10 mg PO BEDTIME 01/11/17 01/26/17 History Potassium Chloride 20 meq PO BID 01/11/17 01/26/17 History hydrALAZINE TAB [Apresoline Tab] 50 mg PO BID 01/11/17 01/26/17 History Bisoprol/Hydrochlorothiazide 0.5 tablet PO DAILY #0 01/18/17 01/26/17 Rx [Bisoprolol-Hctz 5-6.25 mg Tab] Citric Acid/Sodium Citrate 30 ml PO TID #1 bottle 01/18/17 01/26/17 Rx [Bicitra] Furosemide Tab [Lasix Tab] 40 mg PO BID #0 01/18/17 01/26/17 Rx Pantoprazole Tab [Protonix Tab] 40 mg PO DAILY #30 tablet 01/18/17 01/26/17 Rx Allergies Allergy/AdvReac Type Severity Reaction Status Date / Time doxycycline Allergy Severe RASH Verified 01/17/17 14:13 12 point system: reviewed and no additional remarkable complaints except as stated - Constitutional Constitutional: Present: weight gain - EENT Nose, mouth and throat: Present: epistaxis - Cardiovascular Cardiovascular: Present: dyspnea, dyspnea on exertion, edema, orthopnea - Respiratory Respiratory: Present: dyspnea, dyspnea on exertion, wheezing - Gastrointestinal Gastrointestinal: Present: constipation - Hematologic/Lymphatic Hematologic/Lymphatic: Present: easy bruising Exam (Pulmonay) H&P - Constitutional Vitals: Period Temp Pulse Resp BP Sys/Marie Pulse Ox Last 24 Hr 97.5 F-98.4 F 73-112 18-20 108-145/57-83 95-100 Exam: Pulse around 110. Vital signs otherwise normal. Pupils react to light. Patient is alert and seems oriented. Throat clear. Neck supple no bruits. Chest reveals some expiratory wheezes bilaterally. Heart rapid rate with a grade 2/6 systolic murmur left sternal border. Abdomen soft nontender no masses. Extremities no clubbing cyanosis. She has chronic edema. There are some postphlebitic skin changes. Calves nontender. Medical,Surgical,& Family Hx - Medical History Cardio: History of: Cardiac Dysrhythmia (AFIB), CHF, Hypertension, Cardiovascular Problems (DIASTOLIC DYSFUNCTION, CARDIOMYOPATHY,RBBB,) Neurology: History of: Cerebrovascular Accident No history of: Seizures Respiratory: History of: COPD Renal: History of: Renal Problems (RENAL INSUFFICIENCY) Gastrointestinal: History of: GERD Musculoskeletal: History of: Osteoporosis, Musculoskeletal Problems (SPINAL STENOSIS) Other: History of: Miscellaneous Medical Problems (GOUT, VENOUS INSUFFICIENCY OF BOTH LOWER EXTREMITIES) - Family History Family History: Reports;: Family Diabetes, Family Heart Disease, Family Hypertension - Social History Smoking Status: Never smoker Frequency of Alcohol Use: None Type of Drug Use: None Results - Labs CBC & BMP: 02/01/17 03:37 02/01/17 03:37 Lab Results: I have reviewed the past 24 hour labs Quality Measures - VTE Contraindication to Pharmacological VTE Prophylaxis: High Risk of Bleeding
[2017-02-01] MEDS: LEVOFLOXACIN INJ 250 MG in PREMIX 1 EACH IV SCH (12:03)
--- NOTE | 2017-02-01 13:41 | XRay Report ---
XR chest 1V portable Indication: CHF, wheezing Comparison: Chest x-ray dated January 26, 2017 Technique: Single frontal view of the chest. Findings: Continued marked cardiomegaly. There is nonspecific prominence of lung markings suspicious for interstitial pulmonary edema. Chronic/fibrotic change and interstitial pneumonia may have similar appearance. Suspect small layering bilateral pleural fluid. Visualized osseous and surrounding soft tissue structures appear grossly unchanged. IMPRESSION: As above. PROCEDURE INTERPRETED AT [facility] DEPARTMENT OF RADIOLOGY Final Report Signed by: Dr Abundio Islas
[2017-02-01] MEDS: MONTELUKAST 10 MG TABLET PO SCH (21:47)
[2017-02-02] MEDS: ALBUTEROL/IPRATROPIUM 3 ML NEB RESP TX SCH ×4 (00:30→19:31)
[2017-02-02 05:26] LABS: Basophils % 0.2 % (0.0-0.8); Eosinophils # 0.3 10*3/uL (0.0-0.87); Hematocrit 28.3 VOL% (35.7-47.0); Hemoglobin 9.2 GM/DL (12.0-16.0); Immature Granulocytes % 0.2 %; Immature Granulocytes Absolute 0.01 #; Lymphocytes # 1.2 10*3/uL (1.4-4.0); Lymphocytes % 27.4 % (21.3-54.2); Mean Corpuscular HGB Conc 32.5 GM/DL (32-36); Mean Corpuscular Hemoglobin 31 PG (27-34); Mean Corpuscular Volume 93.7 FL (87-102); Mean Platelet Volume 11.6 FL (9.6-12.0); Monocytes # 0.6 10*3/uL (0.11-0.8); Monocytes % 14.2 % (1.7-12.7); Neutrophils # 2.2 10*3/uL (1.4-7.4); Platelet Count 126 T/CUMM (130-400); Red Blood Count 3.02 MC/CUMM (3.8-5.5); Red Cell Distribution Width 16.3 % (9.3-17.3); White Blood Count 4.3 T/CUMM (4-12)
[2017-02-02 05:52] LABS: Calcium 10.1 MG/DL (8.5-10.1); Osmolality,Calculated 292.3 MOS/KG (273-304); Potassium 3.7 MMOL/L (3.5-5.1)
[2017-02-02 05:57] LABS: Calcium 10.2 MG/DL (8.5-10.1); Magnesium 2.1 MG/DL (1.8-2.4); Osmolality,Calculated 292.3 MOS/KG (273-304); Potassium 3.7 MMOL/L (3.5-5.1)
[2017-02-02] MEDS: METOCLOPRAMIDE 5 MG TABLET PO SCH ×3 (08:22→15:59)
[2017-02-02] MEDS: FERROUS SULFATE 325 MG TABLET PO SCH ×2 (08:22→21:41)
[2017-02-02] MEDS: SUCRALFATE 1 GM TABLET PO SCH ×3 (08:23→15:59)
[2017-02-02] MEDS: PANTOPRAZOLE 40 MG TABLET PO SCH ×2 (08:23→21:41)
[2017-02-02] MEDS: LISINOPRIL 20 MG TABLET PO SCH (08:23)
[2017-02-02] MEDS: metOLazone 5 MG TABLET PO SCH (08:23)
[2017-02-02] MEDS: POTASSIUM CHLORIDE 20 MEQ TABLET PO SCH ×2 (08:24→21:41)
[2017-02-02] MEDS: ALLOPURINOL 300 MG TABLET PO SCH (08:24)
[2017-02-02] MEDS: CARVEDILOL 3.125 MG TABLET PO SCH ×2 (08:24→21:42)
[2017-02-02] MEDS: DOCUSATE SODIUM 100 MG CAPSULE PO SCH ×2 (08:24→21:41)
[2017-02-02] MEDS: CITRIC ACID/SODIUM CITRATE 30 ML UDCUP PO SCH ×3 (08:25→21:42)
[2017-02-02] MEDS: FUROSEMIDE 40 MG/4 ML VIAL IV SCH ×2 (08:25→15:59)
--- NOTE | 2017-02-02 08:32 | Pulmonology Progress Note ---
Pulmonary - PN: Subj Interval history: This 77-year-old black female is in with congestive heart failure. I was asked to see her because of wheezing. Her chest x-ray is consistent with heart failure. She is a non-smoker. Certainly she could have a superimposed bronchitis and I have chosen to put her on some Levaquin and bronchodilators. However I think her wheezing is due to heart failure. She has renal insufficiency which makes it difficult to diurese her. She has been wheezing since admission. Her weight is not down. Exam (Progress Note) - Constitutional Vitals: Period Temp Pulse Resp BP Sys/Marie Pulse Ox Last 24 Hr 97.4 F-98.9 F 64-105 16-20 104-126/50-61 93-100 Exam: Patient is alert sitting up in a chair. Wearing nasal oxygen. Vital signs normal. Pupils react to light. Throat is clear. Neck supple no bruits. Chest reveals some expiratory wheezes and bibasilar crackles. Heart normal rate , irregular rhythm, grade 2/6 systolic murmur left sternal border. Abdomen soft nontender no masses. Extremities no clubbing or cyanosis she has some chronic 2+ leg edema. Results - Labs CBC & BMP: 02/02/17 04:54 02/02/17 04:54 Assessment and Plan (1) Acute on chronic systolic (congestive) heart failure Status: Acute Assessment and plan: Ejection fraction 35% with severe mitral regurgitation as the cause for congestive heart failure. Also likely fluid retention related to renal insufficiency. There is no chest x-ray to review to see whether she is ahead on fluids now or not. Will order chest x-ray. 02/02/2017 continuing with diuresis. She is on big doses of Lasix plus Zaroxolyn. Has renal insufficiency with creatinine of around 2.5. Because of her failure is acute on chronic systolic plus mitral regurgitation. Current Visit: Yes (2) Mitral regurgitation Status: Acute Assessment and plan: Apparently severe mitral regurgitation. 02/02/2017 defer to cardiology Current Visit: Yes (3) Acute bronchitis Status: Acute Assessment and plan: She is wheezing and coughing and has had some sputum production. Not sure whether she has a superimposed bronchitis atop her congestive heart failure. Chest x-ray will help us with that. We will go ahead and empirically put her on Levaquin. She is on bronchodilators already. Will not use steroids. 01/31/2017 she is on empiric medication for bronchitis because of the persistent wheezing and cough. She had some sputum production earlier. There is been no fever. She does not have chronic lung disease. Current Visit: Yes (4) Chronic renal insufficiency Status: Acute Assessment and plan: Creatinine around 2.2. Making it difficult to diurese her 02/02/2017 again the renal insufficiency makes it difficult to diurese her to treat her heart failure. Current Visit: No (5) Cardiomyopathy Status: Chronic Assessment and plan: Ejection fraction 35%. Defer to cardiology. Current Visit: No (6) Atrial fibrillation Status: Chronic Assessment and plan: Chronic anticoagulants. 02/02/2017 rate is controlled. Current Visit: No Qualifiers: Atrial fibrillation type: persistent Qualified Code(s): I48.1 - Persistent atrial fibrillation
--- NOTE | 2017-02-02 08:52 | Cardiology Progress Note ---
<Kayla López E - Last Filed: 02/02/17 08:45> Assessment and Plan - Time spent with patient Time spent with patient: Less than 30 minutes (1) Acute systolic CHF (congestive heart failure) Status: Acute Assessment and plan: See plan of care listed below. Current Visit: Yes (2) Cardiomyopathy Status: Chronic Assessment and plan: See plan of care listed below. Current Visit: No (3) Atrial fibrillation Status: Chronic Assessment and plan: See plan of care listed below. Current Visit: No Qualifiers: Atrial fibrillation type: persistent Qualified Code(s): I48.1 - Persistent atrial fibrillation (4) Chronic renal insufficiency Status: Acute Assessment and plan: See plan of care listed below. Current Visit: No (5) Anemia Status: Acute Assessment and plan: See plan of care listed below. Current Visit: No Qualifiers: Chronic kidney disease stage: stage 3 (moderate) (6) COPD (chronic obstructive pulmonary disease) Status: Chronic Assessment and plan: See plan of care listed below. Current Visit: Yes (7) GERD (gastroesophageal reflux disease) Status: Chronic Assessment and plan: See plan of care listed below. Current Visit: Yes (8) Obesity Status: Chronic Assessment and plan: See plan of care listed below. Current Visit: Yes Cardiology - PN: Subj Interval history: Underwriting Intern: Dr. Monaco PCP: Dr. Donovan Ms. Lynn is a 77-year-old -[place] female with history of persistent atrial fibrillation, cardiomyopathy, diastolic dysfunction, hypertension, prior ischemic stroke, chronic renal insufficiency, bilateral lower extremity venous insufficiency, gout, obesity, COPD, systolic CHF, GERD. Risk factors are significant for: Hypertension, obesity, sedentary lifestyle. She was previously admitted to the hospital on 01/15/17 with anticipation of renal prophylactic saline gently before [facility] on 01/16/17 but was found to be profoundly anemic. Her cath was cancelled and she was found to have multiple antral gastric ulcers and a hiatal hernia. She returned to Dr. Monaco's clinic for follow up on 01/26/17 with dyspnea and edema. She reported 2 pillow orthopnea and difficulty moving her legs due to the heaviness from her edema. She was admitted to the hospital from clinic for diuresis and further workup and treatment of acutely decompensated heart failure and evaluation of worsening anemia with epistaxis. She reports she feels as though she is improving. She continues to have some mild persistent wheezing, now along with some mild nasal congestion. She does have humidified O2 present via NBP. Her lower extremities remain chronically edematous; this may be partially mechanical from venous insufficiency and sedentary lifestyle as well as complicated by her renal insufficiency and third spacing of fluid. Yesterday we consulted wound care to aid with wrapping her lower extremities with gentle compression. She had both lower extremities wrapped but complained of numbness in her left leg last night and her left lower extremity compression dressing was removed. We will ask them to try and rewrap this today a little looser than yesterday. ASSESSMENT/PLAN: 1. ACUTE ON CHRONIC COMBINED SYSTOLIC AND DIASTOLIC CHF -continue diuretic therapy. Continue beta-merissa and SONAL inhibitor. Nephrology has been consulted for their input regarding her renal insufficiency. She has diuresed well with the addition of metolazone although she continues to have considerable bilateral lower extremity edema. Her weight has gone from 262.6# to 256#. She still needs to undergo heart catheterization. If her renal function H&H remained stable, it may be possible to proceed with diagnostic catheterization. She would not be a candidate for intervention based on her comorbidities including anemia and heme-positive stools. 2. CARDIOMYOPATHY, UNSPECIFIED -echocardiogram done 12/08/2016 revealed EF 35%, grade 3 diastolic dysfunction, severe LVH, moderate to severe mitral regurgitation, mild aortic insufficiency, moderate pulmonic regurgitation, and moderate to severe tricuspid regurgitation. She was also noted to have evidence of pulmonary hypertension with PAP 65 mmHg. 3. PERSISTENT ATRIAL FIBRILLATION - She is currently rate controlled. Continue Coreg 3.125mg PO BID. Treatment is very difficult given her anemia and continued apparent intestinal blood loss with worsening anemia and heme positive stools.Certainly there are lots reasons for her to have dark stools and also medications that can make her potentially heme positive. 4. CHRONIC RENAL INSUFFICIENCY - Will consult Nephrology for their input. Creatinine has remained stable at 2.3 with GFR 29. Her renal insufficiency has prohibited left heart catheterization and is been felt that coronary disease is a high probability. 5. ANEMIA -she still has 4+ heme positive stool but has no gross bleeding. GI has been consulted. H&H dropped over the weekend and she required transfusion of 2 units packed red blood cells yesterday. H&H is stable. 6. COPD - Continue O2 and breathing treatments PRN. Will resume her home dose of singulair QHS. She continues to have some productive sputum and is brown tinged. She has been started on antibiotics. Overall, her lungs sound mildly improved today from yesterday. 7. GERD - Continue PPI. 8. OBESITY - Chronic. Dr. Monaco to follow with further plan and addendum. Exam (Progress Note) - Constitutional Vitals: Period Temp Pulse Resp BP Sys/Marie Pulse Ox Last 24 Hr 97.4 F-98.9 F 64-105 16-20 104-126/50-61 93-100 Exam: General: Present: Appears Well, No Apparent Distress. Pleasant and cooperative. Appears comfortable. HEENT: Present: PERRL, Normocephaly, atraumatic. Mucus Membranes Moist. No jaundice noted. Conjunctiva moist and clear, sclerae anicteric Neck: Present: Supple Neck, Midline Trachea, No Masses, No Bruit, No tenderness Cardiac: Present: Irregular Rate and Rhythm, Systolic Murmur, no chest wall tenderness Lungs: Present: End-expiratory wheezes noted posteriorly more in the right lobes , no rhonchi. Neuro: Present: Awake, alert, and oriented x3. Moves all extremities well without hemiparesis or paralysis. Grossly Intact. Absent: Resting Tremor, Essential Tremor Abdomen: Present: Soft, Active Bowel Sounds, No Masses, Non-Tender, nondistended. No abdominal bruit or thrill noted. Skin: Present: Clear. Absent: Rash, No skin breakdown. Back: Normal inspection, no vertebral tenderness. Musculoskeletal: Present: No Fluid Collection, No Pain Extremities: Present: Normal Gait, No Clubbing, No Cyanosis, Upper Extr. Pulses 2+, Lower Extr. Pulses 2+, 4+ pitting edema to BLE (chronic but improving, now with wrinkling in LLE) RLE wrapped with gauze and . Capillary refill less than 3 seconds. Result/EKG - Labs CBC & BMP: 02/02/17 04:54 02/02/17 04:54 Lab Results: I have reviewed the past 24 hour labs Labs: Laboratory Results - last 24 hr 02/01/17 02/02/17 02/02/17 12:00 04:54 04:54 WBC 4.3 RBC 3.02 L Hgb 9.2 L Hct 28.3 L MCV 93.7 MCH 31 MCHC 32.5 RDW 16.3 Plt Count 126 L MPV 11.6 Neut % (Auto) 52.0 Lymph % (Auto) 27.4 [place] % (Auto) 14.2 H Eos % (Auto) 6.0 Baso % (Auto) 0.2 Neut # (Auto) 2.2 Lymph # (Auto) 1.2 L [place] # (Auto) 0.6 Eos # (Auto) 0.3 Baso # (Auto) 0.0 Immature Gran % 0.2 Nucleated RBC % 0.0 Immature Gran # 0.01 Nucleated RBCs # 0.00 Sodium 141 Potassium 3.7 Chloride 93 L Carbon Dioxide 44 H Anion Gap 7.7 BUN 45 H Creatinine 2.50 H GFR Calculation 26 BUN/Creatinine Ratio 18.00 Glucose 90 Calculated Osmolality 292.3 Calcium 10.1 Magnesium B-Natriuretic Peptide 171 H 02/02/17 04:54 WBC RBC Hgb Hct MCV MCH MCHC RDW Plt Count MPV Neut % (Auto) Lymph % (Auto) [place] % (Auto) Eos % (Auto) Baso % (Auto) Neut # (Auto) Lymph # (Auto) [place] # (Auto) Eos # (Auto) Baso # (Auto) Immature Gran % Nucleated RBC % Immature Gran # Nucleated RBCs # Sodium 141 Potassium 3.7 Chloride 93 L Carbon Dioxide 43 H Anion Gap 8.7 BUN 46 H Creatinine 2.50 H GFR Calculation 26 BUN/Creatinine Ratio 18.00 Glucose 90 Calculated Osmolality 292.3 Calcium 10.2 H Magnesium 2.1 B-Natriuretic Peptide - EKG EKG results: interpreted by hi EKG shows: atrial fibrillation Quality Measures - VTE Contraindication to Pharmacological VTE Prophylaxis: High Risk of Bleeding <Beth Monaco - Last Filed: 02/02/17 13:57> Assessment and Plan (1) Acute systolic CHF (congestive heart failure) Status: Acute Current Visit: Yes (2) Obesity Status: Chronic Current Visit: Yes (3) Anemia Status: Acute Current Visit: No Qualifiers: Chronic kidney disease stage: stage 3 (moderate) (4) Atrial fibrillation Status: Chronic Current Visit: No Qualifiers: Atrial fibrillation type: persistent Qualified Code(s): I48.1 - Persistent atrial fibrillation (5) Cardiomyopathy Status: Chronic Current Visit: No (6) Chronic renal insufficiency, stage III (moderate) Status: Chronic Current Visit: No (7) GI bleed Status: Chronic Current Visit: No (8) H. pylori infection Problem details: On recent admission with EGD. Check to ensure treated. Status : Acute Current Visit: Yes (9) Mitral regurgitation Status: Acute Current Visit: Yes (10) Acute bronchitis Status: Acute Current Visit: Yes Cardiology - PN: Subj Interval history: Saw and examined with Ms. López. The patient continues to have significant amount of wheezing. I believe that despite her low EF this appears to be bronchitis more than cardiomyopathy causing her current problems. The assistance of the consultants is appreciated. Renal disease is significant yet appears to be stable I think we are about to miss her window to proceed with left heart catheterization as low as possible risk I discussed with her she is willing to proceed. She has a creatinine clearance of about 30. I think we should proceed with left heart catheterization tomorrow with no planned intervention as well as a right heart catheterization to define what is going on with her. She should NOT be on dual antiplatelet therapy. I think cath is necessary to proceed with therapy. We will try to minimize contrast and anticoagulants per Exam (Progress Note) - Constitutional Vitals: Period Temp Pulse Resp BP Sys/Marie Pulse Ox Last 24 Hr 97 F-98.9 F 64-97 16-20 104-126/50-61 93-100 Exam: Heart rate is irregular rate is controlled she has bilateral expiratory wheezes I do not hear rales. Her lower extremities have been wrapped there is some improvement. No significant amount of edema at this time. I think her edema has been mobilized with this pressure wraps and now we have his chronic adipose tissue. Result/EKG - Labs CBC & BMP: 02/02/17 04:54 02/02/17 04:54 Labs: Laboratory Results - last 24 hr 02/02/17 02/02/17 02/02/17 04:54 04:54 04:54 WBC 4.3 RBC 3.02 L Hgb 9.2 L Hct 28.3 L MCV 93.7 MCH 31 MCHC 32.5 RDW 16.3 Plt Count 126 L MPV 11.6 Neut % (Auto) 52.0 Lymph % (Auto) 27.4 [place] % (Auto) 14.2 H Eos % (Auto) 6.0 Baso % (Auto) 0.2 Neut # (Auto) 2.2 Lymph # (Auto) 1.2 L [place] # (Auto) 0.6 Eos # (Auto) 0.3 Baso # (Auto) 0.0 Immature Gran % 0.2 Nucleated RBC % 0.0 Immature Gran # 0.01 Nucleated RBCs # 0.00 Sodium 141 141 Potassium 3.7 3.7 Chloride 93 L 93 L Carbon Dioxide 44 H 43 H Anion Gap 7.7 8.7 BUN 45 H 46 H Creatinine 2.50 H 2.50 H GFR Calculation 26 26 BUN/Creatinine Ratio 18.00 18.00 Glucose 90 90 Calculated Osmolality 292.3 292.3 Calcium 10.1 10.2 H Magnesium 2.1
[2017-02-02] MEDS: FLUTICASONE 50 MCG NASAL SPRAY 16 GM BOTTLE BOTH NARES SCH (09:16)
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
--- NOTE | 2017-02-02 10:58 | Nephrology Progress Note ---
Nephrology - PN: Subj Interval history: Pt states she feels better. Seen by pulmonology. They think CHF. BNP only 171. H.pylori and heme pos stools. Creatinine 2.5 for eGFR 26cc/min, CKD stage 4. BLE with very little pitting edema, large amount of adipose tissue. Exam (PN)-Nephrology - Vital Signs Vital signs: Period Temp Pulse Resp BP Sys/Marie Pulse Ox Last 24 Hr 97.4 F-98.9 F 64-105 16-20 104-126/50-61 93-100 - General Appearance General appearance: well-developed, obese EENT: ATNC, PERRL, mucous membranes dry, hearing intact, vision intact Neck: no JVD, no thyromegaly Respiratory: no kyphosis, wheezing (improved) Cardiology: no murmurs, edema (trace) Gastrointestinal: normoactive bowel sounds, no tenderness Integumentary: no rash, warm and dry Neurologic: no focal deficit, no asterixis, alert and oriented x3 Musculoskeletal: no deformities, no erythema Psychiatric: mood/affect appropriate, cooperative - Lab 02/02/17 04:54 02/02/17 04:54 Most recent lab results Calcium 10.2 MG/DL (8.5-10.1) H 02/02/17 04:54 Magnesium 2.1 MG/DL (1.8-2.4) 02/02/17 04:54 Assessment and Plan (1) CKD (chronic kidney disease) stage 4, GFR 15-29 ml/min Problem details: eGFFR 26cc/min. Impression is intravascular volume depletion from diuresis. Likely as tuned up as she can be as far as diuresis/CHF without causing acute renal injury from prolonged prerenal state. No indication for renal replacement therapy at this time. Status: Acute Assessment and plan: No new recs. Will continue to follow with you. Current Visit: Yes (2) H. pylori infection Problem details: On recent admission with EGD. Check to ensure treated. Status : Acute Current Visit: Yes
[2017-02-02] MEDS: LEVOFLOXACIN INJ 250 MG in PREMIX 1 EACH IV SCH (11:40)
[2017-02-02] MEDS ORDERED: BISACODYL 5 MG TABLET PO ONE (12:00)
[2017-02-02] MEDS ORDERED: POLYETHYLENE GLYCOL POWDER 255 GM BOTTLE PO ONE (13:00)
[2017-02-02] MEDS ORDERED: diphenhydrAMINE CAP 25 MG CAPSULE PO ONE (13:52)
[2017-02-02] MEDS ORDERED: DIAZEPAM 5 MG TABLET PO ONE (13:52)
[2017-02-02] MEDS: MONTELUKAST 10 MG TABLET PO SCH (21:42)
[2017-02-03] MEDS: ALBUTEROL/IPRATROPIUM 3 ML NEB RESP TX SCH ×4 (00:11→19:07)
[2017-02-03 04:07] LABS: Basophils % 0.2 % (0.0-0.8); Eosinophils # 0.3 10*3/uL (0.0-0.87); Eosinophils % 6.7 % (0.00-10.9); Hematocrit 30.1 VOL% (35.7-47.0); Hemoglobin 9.6 GM/DL (12.0-16.0); Immature Granulocytes % 0.2 %; Immature Granulocytes Absolute 0.01 #; Lymphocytes # 1.2 10*3/uL (1.4-4.0); Lymphocytes % 26.7 % (21.3-54.2); Mean Corpuscular HGB Conc 31.9 GM/DL (32-36); Mean Corpuscular Hemoglobin 30 PG (27-34); Mean Corpuscular Volume 94.4 FL (87-102); Mean Platelet Volume 11.9 FL (9.6-12.0); Monocytes # 0.6 10*3/uL (0.11-0.8); Monocytes % 13.3 % (1.7-12.7); Neutrophils # 2.4 10*3/uL (1.4-7.4); Neutrophils % 52.9 % (38.7-73.9); Platelet Count 147 T/CUMM (130-400); Red Blood Count 3.19 MC/CUMM (3.8-5.5); Red Cell Distribution Width 16.3 % (9.3-17.3); White Blood Count 4.5 T/CUMM (4-12)
[2017-02-03 04:35] LABS: Calcium 10.5 MG/DL (8.5-10.1); Osmolality,Calculated 288.5 MOS/KG (273-304); Osmolality,Calculated 290.4 MOS/KG (273-304); Potassium 3.6 MMOL/L (3.5-5.1); Potassium 3.7 MMOL/L (3.5-5.1)
[2017-02-03] MEDS ORDERED: SODIUM CHLORIDE 0.45% 1,000 ML IV SCH (06:00)
[2017-02-03] MEDS ORDERED: MAGNESIUM CITRATE 300 ML BOTTLE PO ONE (06:00)
--- NOTE | 2017-02-03 07:08 | Pulmonology Progress Note ---
Pulmonary - PN: Subj Interval history: This 77-year-old black female is in with congestive heart failure. I was asked to see her because of wheezing. Her chest x-ray is consistent with heart failure. She is a non-smoker. Certainly she could have a superimposed bronchitis and I have chosen to put her on some Levaquin and bronchodilators. However I think her wheezing is due to heart failure. She has renal insufficiency which makes it difficult to diurese her. She has been wheezing since admission. Her weight is not down. 02/03/2017 patient is a little better today. Mostly hearing upper airway noises from listening to her chest. Would finish out about 5 more days of Levaquin by mouth. Needs a bronchodilator such as albuterol. I do think she has acute bronchitis. Her congestive heart failure appears to be fairly well controlled. Exam (Progress Note) - Constitutional Vitals: Period Temp Pulse Resp BP Sys/Marie Pulse Ox Last 24 Hr 96.7 F-97.9 F 64-102 16-20 95-140/49-70 88-100 Exam: Patient is alert sitting up in a chair. Wearing nasal oxygen. Vital signs normal. Pupils react to light. Throat is clear. Neck supple no bruits. Chest reveals some inspiratory rhonchi and bibasilar crackles. Heart normal rate, irregular rhythm, grade 2/6 systolic murmur left sternal border. Abdomen soft nontender no masses. Extremities no clubbing or cyanosis she has some chronic 2+ leg edema. Results - Labs CBC & BMP: 02/03/17 03:42 02/03/17 03:42 Lab Results: I have reviewed the past 24 hour labs Assessment and Plan (1) Acute on chronic systolic (congestive) heart failure Status: Acute Assessment and plan: Ejection fraction 35% with severe mitral regurgitation as the cause for congestive heart failure. Also likely fluid retention related to renal insufficiency. There is no chest x-ray to review to see whether she is ahead on fluids now or not. Will order chest x-ray. 02/02/2017 continuing with diuresis. She is on big doses of Lasix plus Zaroxolyn. Has renal insufficiency with creatinine of around 2.5. Because of her failure is acute on chronic systolic plus mitral regurgitation. 02/03/2017 has cardiomegaly and known systolic congestive heart failure with ejection fraction 35%. BNP only minimally elevated. Seems to be under control. Defer to cardiology and renal. Current Visit: Yes (2) Mitral regurgitation Status: Acute Assessment and plan: Apparently severe mitral regurgitation. 02/02/2017 defer to cardiology Current Visit: Yes (3) Acute bronchitis Status: Acute Assessment and plan: She is wheezing and coughing and has had some sputum production. Not sure whether she has a superimposed bronchitis atop her congestive heart failure. Chest x-ray will help us with that. We will go ahead and empirically put her on Levaquin. She is on bronchodilators already. Will not use steroids. 02/02/2017 she is on empiric medication for bronchitis because of the persistent wheezing and cough. She had some sputum production earlier. There is been no fever. She does not have chronic lung disease. 02/03/2017 based on her history I do think she had acute bronchitis. It is better with Levaquin and bronchodilators. Would finish out about 5 more days of Levaquin. Patient can be discharged anytime from my standpoint Current Visit: Yes (4) Chronic renal insufficiency Status: Acute Assessment and plan: Creatinine around 2.2. Making it difficult to diurese her 02/02/2017 again the renal insufficiency makes it difficult to diurese her to treat her heart failure. Current Visit: No (5) Cardiomyopathy Status: Chronic Assessment and plan: Ejection fraction 35%. Defer to cardiology. Current Visit: No (6) Atrial fibrillation Status: Chronic Assessment and plan: Chronic anticoagulants. 02/02/2017 rate is controlled. 02/03/2017 continuing anticoagulants and rate control Current Visit: No Qualifiers: Atrial fibrillation type: persistent Qualified Code(s): I48.1 - Persistent atrial fibrillation
--- NOTE | 2017-02-03 07:44 | Operative Note ---
Date of procedure: 02/03/17 (Fiberoptic bronchoscopy with bronchial washing) Pre-op diagnosis: Hemoptysis Post-op diagnosis: same (No active bleeding seen, increased submucosal vascularity, bronchitis) Procedure: The patient was given preoperative intramuscular medication on the manriquez and transported to the bronchoscopy suite. After an appropriate timeout to be sure we were dealing with Teresa Lynn, the patient was topically anesthetized in the nose and nasopharynx with Xylocaine. She was given 2 mg of Versed intravenously to the point of sedation. The fiberoptic bronchoscope was introduced via the left naris, 3 L nasal oxygen in the right naris. There were increased secretions in the nasopharynx. These were irrigated and removed. There was mild laryngeal edema. Vocal cords function normally with phonation. After further topical anesthesia the trachea was entered. It was free of lesions. The berta was slightly widened. Right and left lungs were carefully inspected to the subsegmental level. There were no endobronchial lesions. There were increased secretions. There was noted increased submucosal vascularity at the division of the left upper and lower lobe and again in the bronchus intermedius. This was not severe and there were no active bleeding sites noted. There was no blood noted on either side. We used saline to irrigate both sides and obtain washings for cultures and cytology. Basically it appears that her hemoptysis is likely due to the combination of chronic bronchitis, congestive heart failure with increased submucosal vascularity, and anticoagulants. I think we would do best to change her from Coumadin to Eliquis 2.5 mg twice a day. The bronchoscope was removed and the patient returned to her floor in stable condition. Anesthesia: conscious sedation Surgeon / Physician: Harinder Pendleton Estimated blood loss: none Specimens: other (Bronchial washings for cultures and cytology) Condition: stable Disposition: floor Results - Labs CBC & BMP: 02/03/17 03:42 02/03/17 03:42 Discharge Plan - Discharge Medications No Action Albuterol Sulfate [Proair HFA] 2 puff INH Q6H PRN PRN Reason: Shortness Of Breath/Wheezing hydrALAZINE TAB [Apresoline Tab] 50 mg PO BID Potassium Chloride 20 meq PO BID Montelukast Tab [Singulair Tab] 10 mg PO BEDTIME Lisinopril 20 mg PO DAILY Ferrous Sulfate [Iron] 325 mg PO BID Aspirin [Aspirin EC] 81 mg PO DAILY Allopurinol 300 mg PO DAILY Pantoprazole Tab [Protonix Tab] 40 mg PO DAILY #30 tablet Bisoprol/Hydrochlorothiazide [Bisoprolol-Hctz 5-6.25 mg Tab] 0.5 tablet PO DAILY #0 Furosemide Tab [Lasix Tab] 40 mg PO BID #0 Metoclopramide HCl 10 mg PO BID Albuterol Sulfate 2.5 mg IH Q6HR Citric Acid/Sodium Citrate [Bicitra] 30 ml PO TID #1 bottle - Follow Up or Referral - Forms/Instructions
[2017-02-03] MEDS: LISINOPRIL 20 MG TABLET PO SCH (08:44)
[2017-02-03] MEDS: CARVEDILOL 3.125 MG TABLET PO SCH ×2 (08:44→20:46)
[2017-02-03] MEDS: FUROSEMIDE 40 MG/4 ML VIAL IV SCH ×2 (08:45→16:19)
--- NOTE | 2017-02-03 08:48 | Cardiology Progress Note ---
Assessment and Plan - Time spent with patient Time spent with patient: Less than 30 minutes (1) Acute systolic CHF (congestive heart failure) Status: Acute Assessment and plan: See plan of care listed below. Current Visit: Yes (2) Cardiomyopathy Status: Chronic Assessment and plan: See plan of care listed below. Current Visit: No (3) Atrial fibrillation Status: Chronic Assessment and plan: See plan of care listed below. Current Visit: No Qualifiers: Atrial fibrillation type: persistent Qualified Code(s): I48.1 - Persistent atrial fibrillation (4) Chronic renal insufficiency Status: Acute Assessment and plan: See plan of care listed below. Current Visit: No (5) Anemia Status: Acute Assessment and plan: See plan of care listed below. Current Visit: No Qualifiers: Chronic kidney disease stage: stage 3 (moderate) (6) Acute bronchitis Status: Acute Assessment and plan: See plan of care listed below. Current Visit: Yes (7) GERD (gastroesophageal reflux disease) Status: Chronic Assessment and plan: See plan of care listed below. Current Visit: Yes (8) Obesity Status: Chronic Assessment and plan: See plan of care listed below. Current Visit: Yes Cardiology - PN: Subj Interval history: Crime Investigator Special Agent: Dr. Monaco PCP: Dr. Donovan Ms. Lynn is a 77-year-old -[place] female with history of persistent atrial fibrillation, cardiomyopathy, diastolic dysfunction, hypertension, prior ischemic stroke, chronic renal insufficiency, bilateral lower extremity venous insufficiency, gout, obesity, COPD, systolic CHF, GERD. Risk factors are significant for: Hypertension, obesity, sedentary lifestyle. She was previously admitted to the hospital on 01/15/17 with anticipation of renal prophylactic saline gently before [facility] on 01/16/17 but was found to be profoundly anemic. Her cath was cancelled and she was found to have multiple antral gastric ulcers and a hiatal hernia. She returned to Dr. Monaco's clinic for follow up on 01/26/17 with dyspnea and edema. She reported 2 pillow orthopnea and difficulty moving her legs due to the heaviness from her edema. She was admitted to the hospital from clinic for diuresis and further workup and treatment of acutely decompensated heart failure and evaluation of worsening anemia with epistaxis. She reports she feels as though she is improving. She continues to have some mild persistent wheezing, now along with some mild nasal congestion. She does have humidified O2 present via NBP. Her lower extremities remain chronically edematous; this may be partially mechanical from venous insufficiency and sedentary lifestyle as well as complicated by her renal insufficiency and third spacing of fluid. We consulted wound care to aid with wrapping her lower extremities with gentle compression. She is receiving a breathing treatment upon exam today. She has been going to the bathroom frequently in preparation for colonoscopy this morning. ASSESSMENT/PLAN: 1. ACUTE ON CHRONIC COMBINED SYSTOLIC AND DIASTOLIC CHF -continue diuretic therapy. Continue beta-merissa and SONAL inhibitor. Nephrology has been consulted for their input regarding her renal insufficiency. She has diuresed well with the addition of metolazone although she continues to have considerable bilateral lower extremity edema. Her weight has gone from 262.6# to 256#. She still needs to undergo heart catheterization. If her renal function H&H remained stable, it may be possible to proceed with diagnostic catheterization. She would not be a candidate for intervention or dual antiplatelet therapy based on her comorbidities including anemia and heme- positive stools. 2. CARDIOMYOPATHY, UNSPECIFIED -echocardiogram done 12/08/2016 revealed EF 35%, grade 3 diastolic dysfunction, severe LVH, moderate to severe mitral regurgitation, mild aortic insufficiency, moderate pulmonic regurgitation, and moderate to severe tricuspid regurgitation. She was also noted to have evidence of pulmonary hypertension with PAP 65 mmHg. 3. PERSISTENT ATRIAL FIBRILLATION - She is currently rate controlled. Continue Coreg 3.125mg PO BID. Treatment is very difficult given her anemia and continued apparent intestinal blood loss with worsening anemia and heme positive stools.Certainly there are lots reasons for her to have dark stools and also medications that can make her potentially heme positive. 4. CHRONIC RENAL INSUFFICIENCY - Will consult Nephrology for their input. Creatinine is up to 2.4 with GFR 28. Her renal insufficiency has prohibited left heart catheterization and is been felt that coronary disease is a high probability. 5. ANEMIA -she still has 4+ heme positive stool but has no gross bleeding. GI has been consulted. H&H dropped over the weekend and she required transfusion of 2 units packed red blood cells. H&H is stable and she is for colonoscopy by Dr. Morrell today. Pending these results, Dr. Monaco may proceed with right/ left heart catheterization today. 6. ACUTE BRONCHITIS - We appreciate pulmonology's assistance. Continuing O2 and breathing treatments. She continues to have some productive sputum. Pulmonology does not feel she has chronic lung disease. It is felt she has acute bronchitis and has been started on antibiotics and bronchodilators. She will need 5 more days of Levaquin therapy. 7. GERD - Continue PPI. 8. OBESITY - Chronic. Dr. Monaco to follow with further plan and addendum. Exam (Progress Note) - Constitutional Vitals: Period Temp Pulse Resp BP Sys/Marie Pulse Ox Last 24 Hr 96.7 F-98.6 F 68-102 16-20 95-140/49-70 88-100 Exam: General: Present: Appears Well, No Apparent Distress. Pleasant and cooperative. Appears comfortable. HEENT: Present: PERRL, Normocephaly, atraumatic. Mucus Membranes Moist. No jaundice noted. Conjunctiva moist and clear, sclerae anicteric Neck: Present: Supple Neck, Midline Trachea, No Masses, No Bruit, No tenderness Cardiac: Present: Irregular Rate and Rhythm, Systolic Murmur, no chest wall tenderness Lungs: Present: wheezes noted posteriorly with mild bibasilar crackles and inspiratory rhonchi. Neuro: Present: Awake, alert, and oriented x3. Moves all extremities well without hemiparesis or paralysis. Grossly Intact. Absent: Resting Tremor, Essential Tremor Abdomen: Present: Soft, Active Bowel Sounds, No Masses, Non-Tender, nondistended. No abdominal bruit or thrill noted. Skin: Present: Clear. Absent: Rash, No skin breakdown. Back: Normal inspection, no vertebral tenderness. Musculoskeletal: Present: No Fluid Collection, No Pain Extremities: Present: Normal Gait, No Clubbing, No Cyanosis, Upper Extr. Pulses 2+, Lower Extr. Pulses 2+, 3+ pitting edema to BLE (chronic but improving, BLE wrapped with gauze and sonal bandages). Capillary refill less than 3 seconds. Result/EKG - Labs CBC & BMP: 02/03/17 03:42 02/03/17 03:42 Lab Results: I have reviewed the past 24 hour labs Labs: Laboratory Results - last 24 hr 02/03/17 02/03/17 02/03/17 03:42 03:42 03:42 WBC 4.5 RBC 3.19 L Hgb 9.6 L Hct 30.1 L MCV 94.4 MCH 30 MCHC 31.9 L RDW 16.3 Plt Count 147 MPV 11.9 Neut % (Auto) 52.9 Lymph % (Auto) 26.7 Aiken % (Auto) 13.3 H Eos % (Auto) 6.7 Baso % (Auto) 0.2 Neut # (Auto) 2.4 Lymph # (Auto) 1.2 L Aiken # (Auto) 0.6 Eos # (Auto) 0.3 Baso # (Auto) 0.0 Immature Gran % 0.2 Nucleated RBC % 0.0 Immature Gran # 0.01 Nucleated RBCs # 0.00 Sodium 140 139 Potassium 3.7 3.6 Chloride 91 L 91 L Carbon Dioxide 43 H 43 H Anion Gap 9.7 8.6 BUN 45 H 45 H Creatinine 2.40 H 2.40 H GFR Calculation 28 28 BUN/Creatinine Ratio 18.00 18.00 Glucose 96 92 Calculated Osmolality 290.4 288.5 Calcium 10.5 H 10.5 H Magnesium 2.0 - EKG EKG results: interpreted by me EKG shows: atrial fibrillation Quality Measures - VTE Contraindication to Pharmacological VTE Prophylaxis: High Risk of Bleeding
[2017-02-03] MEDS: CITRIC ACID/SODIUM CITRATE 30 ML UDCUP PO SCH (08:50)
[2017-02-03] MEDS: FLUTICASONE 50 MCG NASAL SPRAY 16 GM BOTTLE BOTH NARES SCH (08:50)
[2017-02-03] MEDS: SUCRALFATE 1 GM TABLET PO SCH ×3 (08:50→16:19)
[2017-02-03] MEDS: METOCLOPRAMIDE 5 MG TABLET PO SCH ×3 (08:50→16:18)
[2017-02-03] MEDS: metOLazone 5 MG TABLET PO SCH (08:51)
[2017-02-03] MEDS: POTASSIUM CHLORIDE 20 MEQ TABLET PO SCH ×2 (08:51→20:42)
[2017-02-03] MEDS: FERROUS SULFATE 325 MG TABLET PO SCH ×2 (08:51→20:42)
[2017-02-03] MEDS: PANTOPRAZOLE 40 MG TABLET PO SCH ×2 (08:51→20:43)
[2017-02-03] MEDS: ALLOPURINOL 300 MG TABLET PO SCH (08:51)
[2017-02-03] MEDS: DOCUSATE SODIUM 100 MG CAPSULE PO SCH ×2 (08:51→20:42)
--- NOTE | 2017-02-03 09:27 | Nephrology Progress Note ---
Nephrology - PN: Subj Interval history: PT states feeling better. She denies knowledge of having a bronchoscopy this am. Reviewed and the FOB was dictated under wrong patient. She denies SOB/pain. Exam (PN)-Nephrology - Vital Signs Vital signs: Period Temp Pulse Resp BP Sys/Marie Pulse Ox Last 24 Hr 96.7 F-98.6 F 68-102 16-20 95-140/49-70 88-100 - General Appearance General appearance: well-developed, chronically ill EENT: ATNC, PERRL, hearing intact, vision intact Neck: no JVD, no thyromegaly Respiratory: no kyphosis, wheezing Cardiology: no murmurs, no rub Gastrointestinal: normoactive bowel sounds, no tenderness Integumentary: no rash, warm and dry Neurologic: no focal deficit, no asterixis, alert and oriented x3 Musculoskeletal: no deformities, no erythema Psychiatric: mood/affect appropriate, cooperative - Lab 02/03/17 03:42 02/03/17 03:42 Most recent lab results Calcium 10.5 MG/DL (8.5-10.1) H 02/03/17 03:42 Magnesium 2.0 MG/DL (1.8-2.4) 02/03/17 03:42 Assessment and Plan (1) Metabolic alkalosis Problem details: most likley due to tid bicitra. Citrate also binds calcium. The calcium assay measures both bound and unbound calcium. Stopped bicitra. Status: Acute Current Visit: Yes (2) Hypercalcemia Status: Acute Current Visit: Yes (3) CKD (chronic kidney disease) stage 4, GFR 15-29 ml/min Problem details: eGFFR 26cc/min. Impression is intravascular volume depletion from diuresis. Likely as tuned up as she can be as far as diuresis/CHF without causing acute renal injury from prolonged prerenal state. No indication for renal replacement therapy at this time. Status: Acute Assessment and plan: No new recs. Will continue to follow with you. Current Visit: Yes (4) H. pylori infection Problem details: On recent admission with EGD. Check to ensure treated. Status : Acute Current Visit: Yes
--- NOTE | 2017-02-03 12:05 | Operative Note ---
Date of procedure: 02/03/17 Pre-op diagnosis: GI bleed Procedure: Procedure note: Colonoscopy Physician: Dr. Tung Morrell Brief clinical abstract: 77-year-old female is admitted with recent occult GI bleeding with anemia. She apparently has never had colonoscopy. Endoscopic findings: After informed consent was obtained, the patient was placed in the left lateral decubitus position. Digital rectal exam was performed with no palpable abnormalities felt. Pediatric videocolonoscope was inserted into the rectum and advanced to the cecum. Her colon was quite redundant. On withdrawal from the cecum bowel prep was of good quality. Vascular pattern throughout the colon appeared normal. No blood was seen. Scattered diverticuli were noted in the ascending, transverse, descending and sigmoid colon with no obvious bleeding stigmata. No polyps or masses were seen. The endoscope was withdrawn in the rectum with retroflex view showing small internal hemorrhoids. The endoscope was then removed. She appeared to tolerate the procedure well. Impression: #1 diverticulosis coli #2 internal hemorrhoids Plan: Advance diet as tolerated. Could discharge from GI standpoint if no clinical change. Anesthesia: MAC Surgeon / Physician: Jozef Morrell Estimated blood loss: none Specimens: none sent Condition: stable Disposition: post procedure unit Results - Labs CBC & BMP: 02/03/17 03:42 02/03/17 03:42 Discharge Plan - Discharge Medications No Action Albuterol Sulfate [Proair HFA] 2 puff INH Q6H PRN PRN Reason: Shortness Of Breath/Wheezing hydrALAZINE TAB [Apresoline Tab] 50 mg PO BID Potassium Chloride 20 meq PO BID Montelukast Tab [Singulair Tab] 10 mg PO BEDTIME Lisinopril 20 mg PO DAILY Ferrous Sulfate [Iron] 325 mg PO BID Aspirin [Aspirin EC] 81 mg PO DAILY Allopurinol 300 mg PO DAILY Pantoprazole Tab [Protonix Tab] 40 mg PO DAILY #30 tablet Bisoprol/Hydrochlorothiazide [Bisoprolol-Hctz 5-6.25 mg Tab] 0.5 tablet PO DAILY #0 Furosemide Tab [Lasix Tab] 40 mg PO BID #0 Metoclopramide HCl 10 mg PO BID Albuterol Sulfate 2.5 mg IH Q6HR Citric Acid/Sodium Citrate [Bicitra] 30 ml PO TID #1 bottle - Follow Up or Referral - Forms/Instructions
--- NOTE | 2017-02-03 12:12 | Anesthesia Post-Op ---
Anesthesia Post OP - Post Ansesthetic Evaluation Patient seen in post op: Yes Resp: within normal limits CV: within normal limits Mental: within normal limits Temp: within normal limits Xlor-Xv-[id number]: within normal limits Nausea and Vomiting: within normal limits Pain: within normal limits
[2017-02-03] MEDS: LEVOFLOXACIN INJ 250 MG in PREMIX 1 EACH IV SCH (13:30)
[2017-02-03] MEDS: MONTELUKAST 10 MG TABLET PO SCH (20:43)
[2017-02-03] MEDS: ACETAMINOPHEN 325 MG TABLET PO PRN (20:43)
[2017-02-04] MEDS: ALBUTEROL/IPRATROPIUM 3 ML NEB RESP TX SCH ×4 (00:23→20:08)
[2017-02-04 04:55] LABS: Basophils % 0.2 % (0.0-0.8); Eosinophils # 0.2 10*3/uL (0.0-0.87); Eosinophils % 4.3 % (0.00-10.9); Hematocrit 28.5 VOL% (35.7-47.0); Hemoglobin 9.1 GM/DL (12.0-16.0); Immature Granulocytes % 0.2 %; Immature Granulocytes Absolute 0.01 #; Lymphocytes # 1.2 10*3/uL (1.4-4.0); Lymphocytes % 27.1 % (21.3-54.2); Mean Corpuscular HGB Conc 31.9 GM/DL (32-36); Mean Corpuscular Hemoglobin 30 PG (27-34); Mean Corpuscular Volume 93.4 FL (87-102); Mean Platelet Volume 11.5 FL (9.6-12.0); Monocytes # 0.6 10*3/uL (0.11-0.8); Monocytes % 13.2 % (1.7-12.7); Neutrophils # 2.5 10*3/uL (1.4-7.4); Platelet Count 133 T/CUMM (130-400); Red Blood Count 3.05 MC/CUMM (3.8-5.5); Red Cell Distribution Width 16.2 % (9.3-17.3); White Blood Count 4.5 T/CUMM (4-12)
[2017-02-04 05:21] LABS: Calcium 9.8 MG/DL (8.5-10.1); Magnesium 2.1 MG/DL (1.8-2.4); Osmolality,Calculated 292.3 MOS/KG (273-304); Potassium 3.7 MMOL/L (3.5-5.1)
[2017-02-04] MEDS: SUCRALFATE 1 GM TABLET PO SCH ×3 (07:14→16:42)
[2017-02-04] MEDS: METOCLOPRAMIDE 5 MG TABLET PO SCH ×3 (07:14→16:42)
[2017-02-04] MEDS: DOCUSATE SODIUM 100 MG CAPSULE PO SCH ×2 (08:01→20:29)
[2017-02-04] MEDS: CARVEDILOL 3.125 MG TABLET PO SCH ×2 (08:01→20:29)
[2017-02-04] MEDS: FLUTICASONE 50 MCG NASAL SPRAY 16 GM BOTTLE BOTH NARES SCH (08:01)
[2017-02-04] MEDS: FERROUS SULFATE 325 MG TABLET PO SCH ×2 (08:01→20:29)
[2017-02-04] MEDS: PANTOPRAZOLE 40 MG TABLET PO SCH ×2 (08:01→20:29)
[2017-02-04] MEDS: ALLOPURINOL 300 MG TABLET PO SCH (08:01)
[2017-02-04] MEDS: hydrALAZINE 25 MG TABLET PO SCH ×2 (08:01→20:29)
[2017-02-04] MEDS: POTASSIUM CHLORIDE 20 MEQ TABLET PO SCH ×2 (08:01→20:29)
[2017-02-04] MEDS: FUROSEMIDE 40 MG/4 ML VIAL IV SCH ×2 (08:02→16:42)
--- NOTE | 2017-02-04 09:08 | Cardiology Progress Note ---
Assessment and Plan - Time spent with patient Time spent with patient: Greater than 30 minutes (1) Acute systolic CHF (congestive heart failure) Status: Acute Current Visit: Yes (2) Obesity Status: Chronic Current Visit: Yes (3) Anemia Status: Acute Current Visit: No Qualifiers: Chronic kidney disease stage: stage 3 (moderate) (4) Atrial fibrillation Status: Chronic Assessment and plan: Start anticoagulation tonight and serial hematocrits. Current Visit: No Qualifiers: Atrial fibrillation type: persistent Qualified Code(s): I48.1 - Persistent atrial fibrillation (5) Cardiomyopathy Status: Chronic Current Visit: No (6) Chronic renal insufficiency, stage III (moderate) Status: Chronic Current Visit: No (7) GI bleed Status: Chronic Assessment and plan: Antral gastric ulcers recently with declining H&H Current Visit: No (8) H. pylori infection Problem details: On recent admission with EGD. Check to ensure treated. Status : Acute Current Visit: Yes (9) Mitral regurgitation Status: Acute Current Visit: Yes (10) Acute bronchitis Status: Acute Current Visit: Yes Cardiology - PN: Subj Interval history: Ms. Lynn looks and sounds much better today. She remains in A. fib with controlled rate. Her lung exam is dramatically improved. I had a long discussion with her about what was going on and the risk of renal failure from heart cath. In the absence of chest pain I do not know that it may be best that we treat her medically. I discussed this with her. She seems to be feeling better. Her H&H have remained stable she has not had any overt blood. I reviewed her colonoscopy report. I will would like for her to think about the options that I discussed with her and also we discussed with her tomorrow about the possibility of either discharge home with medical therapy or accepting the risk of heart cath on Monday. I think she may actually be a candidate for some rehabilitation and and controlled environment. She is extremely sedentary and has many factors that contribute to this. Exam (Progress Note) - Constitutional Vitals: Period Temp Pulse Resp BP Sys/Marie Pulse Ox Last 24 Hr 97.2 F-98.1 F 64-114 16-20 88-133/48-78 96-100 General appearance: morbidly obese - Eye Eye exam: Present: EOMI Pupils: Present: LYNDSEY - ENT ENT exam: Present: normal exam - Respiratory Respiratory exam: Present: clear to auscultation bilaterally (NO WHEEZING) - Cardiovascular Cardiovascular exam: Present: irregular rhythm - GI/Abdominal GI/Abdominal exam: Present: normal bowel sounds - Extremities Exam Extremities exam: Present: normal inspection - Back Exam Back exam: Present: normal inspection - Neurological Exam Neurological exam: Present: alert, oriented X3 - Psychiatric Psychiatric exam: Present: normal affect, normal mood - Skin Skin exam: Present: normal color, warm, dry Result/EKG - Labs CBC & BMP: 02/04/17 03:48 02/04/17 03:48 Labs: Laboratory Results - last 24 hr 02/04/17 02/04/17 03:48 03:48 WBC 4.5 RBC 3.05 L Hgb 9.1 L Hct 28.5 L MCV 93.4 MCH 30 MCHC 31.9 L RDW 16.2 Plt Count 133 MPV 11.5 Neut % (Auto) 55.0 Lymph % (Auto) 27.1 Mayes % (Auto) 13.2 H Eos % (Auto) 4.3 Baso % (Auto) 0.2 Neut # (Auto) 2.5 Lymph # (Auto) 1.2 L Mayes # (Auto) 0.6 Eos # (Auto) 0.2 Baso # (Auto) 0.0 Immature Gran % 0.2 Nucleated RBC % 0.0 Immature Gran # 0.01 Nucleated RBCs # 0.00 Sodium 141 Potassium 3.7 Chloride 92 L Carbon Dioxide 42 H Anion Gap 10.7 BUN 47 H Creatinine 2.70 H GFR Calculation 24 BUN/Creatinine Ratio 17.00 Glucose 98 Calculated Osmolality 292.3 Calcium 9.8 Magnesium 2.1 Quality Measures - VTE Contraindication to Pharmacological VTE Prophylaxis: High Risk of Bleeding
--- NOTE | 2017-02-04 10:23 | Pulmonology Progress Note ---
Pulmonary - PN: Subj Interval history: Patient is 77-year-old black lady that came in with some congestive heart failure. She was also coughing a lot and treated for bronchitis. She has been getting some diuretics and antibiotics. She feels like she is much better. She says her breathing is better and her shortness of breath has improved. She feels like her swelling is down and her weight is down. Yesterday she had a C scope that was okay. Overall she is doing much better. Exam (Progress Note) - Constitutional Vitals: Period Temp Pulse Resp BP Sys/Marie Pulse Ox Last 24 Hr 97.2 F-98.1 F 64-114 16-20 88-133/48-78 96-100 General appearance: no acute distress (She looks comfortable sitting up in a chair.), over weight - Head Head exam: Present: normal inspection, normocephalic - Eye Eye exam: Present: EOMI. Absent: scleral icterus Pupils: Present: LYNDSEY - ENT ENT exam: Present: normal exam - Neck Neck exam: Present: normal inspection. Absent: lymphadenopathy, thyromegaly - Respiratory Respiratory exam: Present: clear to auscultation bilaterally, other (She is moving air well I do not hear any significant wheezing or rales now.). Absent: rales, wheezes - Cardiovascular Cardiovascular exam: Present: irregular rhythm, systolic murmur (She has a soft systolic murmur.). Absent: gallop, JVD - GI/Abdominal GI/Abdominal exam: Present: normal bowel sounds, soft. Absent: distended, organomegaly, tenderness - Extremities Exam Extremities exam: Present: edema (Both lower extremities are wrapped and have chronic swelling.). Absent: calf tenderness - Neurological Exam Neurological exam: Present: alert, oriented X3, CN II-XII intact. Absent: motor sensory deficit - Psychiatric Psychiatric exam: Present: normal affect - Skin Skin exam: Present: warm, dry Results - Labs CBC & BMP: 02/04/17 03:48 02/04/17 03:48 - Diagnostic Findings Procedure: Chest x-ray: image reviewed by me, report reviewed by me (Recent chest x-ray showed marked cardiomegaly but no definite infiltrates.) Assessment and Plan (1) Anemia Status: Acute Assessment and plan: The patient was felt to have some GI bleeding but her C scope was okay. She likely has some anemia chronic disease. Her hematocrit is stable at 28.5 Current Visit: No Qualifiers: Chronic kidney disease stage: stage 3 (moderate) (2) Chronic renal insufficiency Status: Acute Assessment and plan: The patient's creatinine is 2.7 today. Current Visit: No (3) Cardiomyopathy Status: Chronic Assessment and plan: The patient has a cardiomyopathy with ejection fraction of 35% and marked cardiomegaly on x-ray. Clinically she is doing better with her heart failure. Current Visit: No (4) Atrial fibrillation Status: Chronic Assessment and plan: Her heart rate is under reasonable control at present. Current Visit: No Qualifiers: Atrial fibrillation type: persistent Qualified Code(s): I48.1 - Persistent atrial fibrillation (5) Obesity Status: Chronic Assessment and plan: Patient has a BMI of 40 and certainly needs to lose weight. Current Visit: Yes (6) Acute on chronic systolic (congestive) heart failure Status: Acute Assessment and plan: The patient came in with shortness of breath and was treated for heart failure and is better. Current Visit: Yes (7) Mitral regurgitation Status: Acute Assessment and plan: The patient has significant mitral regurgitation and is being followed by cardiology. Current Visit: Yes (8) Acute bronchitis Status: Acute Assessment and plan: The patient has been treated with antibiotics and her cough and congestion are better. Current Visit: Yes
--- NOTE | 2017-02-04 11:28 | Nephrology Progress Note ---
Nephrology - PN: Subj Interval history: She has been on room air for about 30 minutes and denies shortness of breath. No chest pain Exam (PN)-Nephrology - Vital Signs Vital signs: Period Temp Pulse Resp BP Sys/Marie Pulse Ox Last 24 Hr 97.2 F-98.1 F 64-114 16-20 88-131/48-78 96-100 Exam: ENT: Normal Cardiovascular: Irregularly irregular rhythm Lungs: Clear Extremities: 2+ edema - Lab 02/04/17 03:48 02/04/17 03:48 Most recent lab results Calcium 9.8 MG/DL (8.5-10.1) 02/04/17 03:48 Magnesium 2.1 MG/DL (1.8-2.4) 02/04/17 03:48 Assessment and Plan (1) CKD (chronic kidney disease) stage 4, GFR 15-29 ml/min Status: Acute Assessment and plan: 77-year-old woman with: * CRF 4. Creatinine higher today. Diuretic may be decreased * Hypercalcemia. Resolved * Metabolic alkalosis. Improving * CHF. She is currently asymptomatic * Atrial fibrillation * Peptic ulcer disease Current Visit: Yes (2) Acute on chronic systolic (congestive) heart failure Status: Acute Current Visit: Yes (3) Hypercalcemia Status: Acute Current Visit: Yes (4) Metabolic alkalosis Problem details: most likley due to tid bicitra. Citrate also binds calcium. The calcium assay measures both bound and unbound calcium. Stopped bicitra. Status: Acute Current Visit: Yes (5) Atrial fibrillation Status: Chronic Current Visit: No Qualifiers: Atrial fibrillation type: persistent Qualified Code(s): I48.1 - Persistent atrial fibrillation
[2017-02-04] MEDS: LEVOFLOXACIN INJ 250 MG in PREMIX 1 EACH IV SCH (11:54)
[2017-02-04] MEDS: ACETAMINOPHEN 325 MG TABLET PO PRN (20:27)
[2017-02-04] MEDS: MONTELUKAST 10 MG TABLET PO SCH (20:29)
[2017-02-04] MEDS: APIXABAN 2.5 MG TABLET PO SCH (20:30)
[2017-02-05] MEDS: ALBUTEROL/IPRATROPIUM 3 ML NEB RESP TX SCH ×4 (01:32→21:05)
[2017-02-05 03:29] LABS: Basophils % 0.4 % (0.0-0.8); Eosinophils # 0.2 10*3/uL (0.0-0.87); Eosinophils % 4.4 % (0.00-10.9); Hematocrit 30.7 VOL% (35.7-47.0); Hemoglobin 9.8 GM/DL (12.0-16.0); Immature Granulocytes % 0.2 %; Immature Granulocytes Absolute 0.01 #; Lymphocytes # 1.3 10*3/uL (1.4-4.0); Lymphocytes % 25.7 % (21.3-54.2); Mean Corpuscular HGB Conc 31.9 GM/DL (32-36); Mean Corpuscular Hemoglobin 30 PG (27-34); Mean Corpuscular Volume 92.5 FL (87-102); Mean Platelet Volume 11.3 FL (9.6-12.0); Monocytes # 0.7 10*3/uL (0.11-0.8); Monocytes % 13.9 % (1.7-12.7); Neutrophils # 2.9 10*3/uL (1.4-7.4); Neutrophils % 55.4 % (38.7-73.9); Platelet Count 146 T/CUMM (130-400); Red Blood Count 3.32 MC/CUMM (3.8-5.5); Red Cell Distribution Width 16.1 % (9.3-17.3); White Blood Count 5.2 T/CUMM (4-12)
[2017-02-05 04:08] LABS: Calcium 10.1 MG/DL (8.5-10.1); Magnesium 1.9 MG/DL (1.8-2.4); Osmolality,Calculated 288.7 MOS/KG (273-304); Potassium 3.6 MMOL/L (3.5-5.1)
[2017-02-05] MEDS: METOCLOPRAMIDE 5 MG TABLET PO SCH ×3 (08:54→17:02)
[2017-02-05] MEDS: CARVEDILOL 3.125 MG TABLET PO SCH ×2 (08:55→20:17)
[2017-02-05] MEDS: ALLOPURINOL 300 MG TABLET PO SCH (08:55)
[2017-02-05] MEDS: SUCRALFATE 1 GM TABLET PO SCH ×3 (08:55→17:02)
[2017-02-05] MEDS: DOCUSATE SODIUM 100 MG CAPSULE PO SCH ×2 (08:55→20:18)
[2017-02-05] MEDS: FERROUS SULFATE 325 MG TABLET PO SCH ×2 (08:55→20:17)
[2017-02-05] MEDS: hydrALAZINE 25 MG TABLET PO SCH ×2 (08:56→20:18)
[2017-02-05] MEDS: POTASSIUM CHLORIDE 20 MEQ TABLET PO SCH ×2 (08:56→20:18)
[2017-02-05] MEDS: PANTOPRAZOLE 40 MG TABLET PO SCH ×2 (08:57→20:18)
[2017-02-05] MEDS: APIXABAN 2.5 MG TABLET PO SCH (08:57)
[2017-02-05] MEDS: FLUTICASONE 50 MCG NASAL SPRAY 16 GM BOTTLE BOTH NARES SCH (08:58)
--- NOTE | 2017-02-05 09:02 | Pulmonology Progress Note ---
Pulmonary - PN: Subj Interval history: Patient is 77-year-old black lady that came in with some congestive heart failure. She was also coughing a lot and treated for bronchitis. She has been getting some diuretics and antibiotics. She says she is feeling better still. She had a fairly good night. Her chest congestion is much better. Her O2 saturation on room air is adequate. She does complain that her legs ache. Exam (Progress Note) - Constitutional Vitals: Period Temp Pulse Resp BP Sys/Marie Pulse Ox Last 24 Hr 97.4 F-98.7 F 81-101 14-20 89-126/53-69 91-100 Exam: General appearance: no acute distress (She looks comfortable sitting up in a chair.), over weight - Head Head exam: Present: normal inspection, normocephalic - Eye Eye exam: Present: EOMI. Absent: scleral icterus Pupils: Present: LYNDSEY - ENT ENT exam: Present: normal exam - Neck Neck exam: Present: normal inspection. Absent: lymphadenopathy, thyromegaly - Respiratory Respiratory exam: Present: She has good breath sounds bilaterally is moving air well without any definite rales or wheezing. - Cardiovascular Cardiovascular exam: Present: irregular rhythm, systolic murmur (She has a soft systolic murmur.). Absent: gallop, JVD - GI/Abdominal GI/Abdominal exam: Present: normal bowel sounds, soft. Absent: distended, organomegaly, tenderness - Extremities Exam Extremities exam: Present: edema (Both lower extremities are wrapped and have chronic swelling. Her legs are about the same.). Absent: calf tenderness - Neurological Exam Neurological exam: Present: alert, oriented X3, CN II-XII intact. Absent: motor sensory deficit - Psychiatric Psychiatric exam: Present: normal affect - Skin Skin exam: Present: warm, dry Results - Labs CBC & BMP: 02/05/17 03:16 02/05/17 03:16 Assessment and Plan (1) Anemia Status: Acute Assessment and plan: The patient was felt to have some GI bleeding but her C scope was okay. She likely has some anemia chronic disease. Her hematocrit is stable at 30.7. Current Visit: No Qualifiers: Chronic kidney disease stage: stage 3 (moderate) (2) Chronic renal insufficiency Status: Acute Assessment and plan: The patient's creatinine is 2.9 today. Current Visit: No (3) Cardiomyopathy Status: Chronic Assessment and plan: The patient has a cardiomyopathy with ejection fraction of 35% and marked cardiomegaly on x-ray. Clinically she is doing better with her heart failure. She does look like she is breathing better. Current Visit: No (4) Atrial fibrillation Status: Chronic Assessment and plan: Her heart rate is under reasonable control at present. Current Visit: No Qualifiers: Atrial fibrillation type: persistent Qualified Code(s): I48.1 - Persistent atrial fibrillation (5) Obesity Status: Chronic Assessment and plan: Patient has a BMI of 40 and certainly needs to lose weight. Current Visit: Yes (6) Acute on chronic systolic (congestive) heart failure Status: Acute Assessment and plan: The patient came in with shortness of breath and was treated for heart failure and is better. Her breathing is much improved today. Current Visit: Yes (7) Mitral regurgitation Status: Acute Assessment and plan: The patient has significant mitral regurgitation and is being followed by cardiology. Current Visit: Yes (8) Acute bronchitis Status: Acute Assessment and plan: The patient has been treated with antibiotics and her cough and congestion are better. She says she is feeling much better today. Will check a chest x-ray tomorrow. Current Visit: Yes
[2017-02-05] MEDS: FUROSEMIDE 40 MG/4 ML VIAL IV SCH (09:10)
[2017-02-05] MEDS: SODIUM CHLORIDE 0.45% 1,000 ML IV SCH (09:17)
--- NOTE | 2017-02-05 09:18 | Cardiology Progress Note ---
Assessment and Plan (1) Acute systolic CHF (congestive heart failure) Status: Acute Assessment and plan: Medical management for now. Consider left heart cath. I still think she needs to postpone if possible Current Visit: Yes (2) Obesity Status: Chronic Current Visit: Yes (3) Anemia Status: Acute Assessment and plan: Better post transfusion. This is stabilized. Current Visit: No Qualifiers: Chronic kidney disease stage: stage 3 (moderate) (4) Atrial fibrillation Status: Chronic Assessment and plan: Start anticoagulation tonight and serial hematocrits. Current Visit: No Qualifiers: Atrial fibrillation type: persistent Qualified Code(s): I48.1 - Persistent atrial fibrillation (5) Cardiomyopathy Status: Chronic Current Visit: No (6) Chronic renal insufficiency, stage III (moderate) Status: Chronic Current Visit: No (7) GI bleed Status: Chronic Assessment and plan: Antral gastric ulcers recently with H&H now stablized Current Visit: No (8) H. pylori infection Problem details: On recent admission with EGD. Check to ensure treated. Status : Acute Current Visit: Yes (9) Mitral regurgitation Status: Acute Current Visit: Yes (10) Acute bronchitis Status: Acute Assessment and plan: This appears to be much better no wheezing Current Visit: Yes Cardiology - PN: Subj Interval history: Ms. Lynn's complaint today is pain in the legs where they are wrapped. She is requested they be discontinued I think that is reasonable her edema has resolved. This is a 77-year-old female with newly diagnosed A. fib and newly diagnosed cardiomyopathy although I suspect neither are new. The patient has been on medications and experienced renal insufficiency with worsening volume status. She is admitted once for left heart catheterization but had renal insufficiency that was too severe she was released home and came back to my office in volume overload. She has been very difficult to manage and develop significant anemia. Her initial heart cath was held because of anemia and she was found to have multiple gastric ulcers therefore we have tried to allow these time to heal before proceeding with left heart cath and her renal insufficiency is gotten worse. She had continued heme positive stools and worsening anemia which now appears to stabilize. Her renal function also has worsened. This may be iatrogenic from trying to remove her volume. I will give her a little bit of fluid today and see if she improves and consider left heart cath. She has not had angina and I think this is all subacute or chronic. I will reevaluate in the morning I really am reluctant to cath with this degree of creatinine elevation since she has been admitted. She is not a candidate for intervention at this time until her ulcers have time to heal. It is probably best that we continue treating her medically. Exam (Progress Note) - Constitutional Vitals: Period Temp Pulse Resp BP Sys/Marie Pulse Ox Last 24 Hr 97.4 F-98.7 F 81-101 14-20 89-126/53-69 91-100 General appearance: over weight - Eye Eye exam: Present: EOMI Pupils: Present: LYNDSEY - Respiratory Respiratory exam: Present: clear to auscultation bilaterally - Cardiovascular Cardiovascular exam: Present: irregular rhythm (His rate is well controlled) - GI/Abdominal GI/Abdominal exam: Present: normal bowel sounds - Extremities Exam Extremities exam: Present: other (No significant edema and they are wrapped at this time) - Neurological Exam Neurological exam: Present: alert, oriented X3 - Psychiatric Psychiatric exam: Present: normal affect, depressed - Skin Skin exam: Present: normal color, warm Result/EKG - Labs CBC & BMP: 02/05/17 03:16 02/05/17 03:16 Labs: Laboratory Results - last 24 hr 02/05/17 02/05/17 03:16 03:16 WBC 5.2 RBC 3.32 L Hgb 9.8 L Hct 30.7 L MCV 92.5 MCH 30 MCHC 31.9 L RDW 16.1 Plt Count 146 MPV 11.3 Neut % (Auto) 55.4 Lymph % (Auto) 25.7 [place] % (Auto) 13.9 H Eos % (Auto) 4.4 Baso % (Auto) 0.4 Neut # (Auto) 2.9 Lymph # (Auto) 1.3 L [place] # (Auto) 0.7 Eos # (Auto) 0.2 Baso # (Auto) 0.0 Immature Gran % 0.2 Nucleated RBC % 0.0 Immature Gran # 0.01 Nucleated RBCs # 0.00 Sodium 138 Potassium 3.6 Chloride 91 L Carbon Dioxide 39 H Anion Gap 11.6 BUN 51 H Creatinine 2.90 H GFR Calculation 21 BUN/Creatinine Ratio 17.00 Glucose 96 Calculated Osmolality 288.7 Calcium 10.1 Magnesium 1.9 Quality Measures - VTE Contraindication to Pharmacological VTE Prophylaxis: High Risk of Bleeding
[2017-02-05] MEDS: LEVOFLOXACIN INJ 250 MG in PREMIX 1 EACH IV SCH (11:52)
--- NOTE | 2017-02-05 13:32 | Nephrology Progress Note ---
Nephrology - PN: Subj Interval history: No S OB on room air Exam (PN)-Nephrology - Vital Signs Vital signs: Period Temp Pulse Resp BP Sys/Marie Pulse Ox Last 24 Hr 97.4 F-98.7 F 81-101 14-20 89-126/53-69 91-100 Exam: ENT: Normal Cardiovascular: Irregularly irregular rhythm Lungs: Clear Extremities: 2+ edema - Lab 02/05/17 03:16 02/05/17 03:16 Most recent lab results Calcium 10.1 MG/DL (8.5-10.1) 02/05/17 03:16 Magnesium 1.9 MG/DL (1.8-2.4) 02/05/17 03:16 Assessment and Plan (1) CKD (chronic kidney disease) stage 4, GFR 15-29 ml/min Status: Acute Assessment and plan: 77-year-old woman with: * CRF 4. Creatinine higher today. Diuretic decreased * Hypercalcemia. Resolved * Metabolic alkalosis. Improving * CHF. She is currently asymptomatic * Atrial fibrillation * Peptic ulcer disease Current Visit: Yes (2) Acute on chronic systolic (congestive) heart failure Status: Acute Current Visit: Yes (3) Hypercalcemia Status: Acute Current Visit: Yes (4) Metabolic alkalosis Problem details: most likley due to tid bicitra. Citrate also binds calcium. The calcium assay measures both bound and unbound calcium. Stopped bicitra. Status: Acute Current Visit: Yes (5) Atrial fibrillation Status: Chronic Current Visit: No Qualifiers: Atrial fibrillation type: persistent Qualified Code(s): I48.1 - Persistent atrial fibrillation
[2017-02-05] MEDS: ACETAMINOPHEN 325 MG TABLET PO PRN (15:39)
[2017-02-05] MEDS: MONTELUKAST 10 MG TABLET PO SCH (20:18)
[2017-02-06] MEDS: ALBUTEROL/IPRATROPIUM 3 ML NEB RESP TX SCH ×4 (01:00→18:28)
[2017-02-06 04:23] LABS: Basophils % 0.4 % (0.0-0.8); Eosinophils # 0.2 10*3/uL (0.0-0.87); Hematocrit 29.6 VOL% (35.7-47.0); Hemoglobin 9.5 GM/DL (12.0-16.0); Immature Granulocytes % 0.2 %; Immature Granulocytes Absolute 0.01 #; Lymphocytes # 1.4 10*3/uL (1.4-4.0); Lymphocytes % 29.4 % (21.3-54.2); Mean Corpuscular HGB Conc 32.1 GM/DL (32-36); Mean Corpuscular Hemoglobin 30 PG (27-34); Mean Corpuscular Volume 91.9 FL (87-102); Mean Platelet Volume 11.1 FL (9.6-12.0); Monocytes # 0.7 10*3/uL (0.11-0.8); Monocytes % 14.3 % (1.7-12.7); Neutrophils # 2.4 10*3/uL (1.4-7.4); Neutrophils % 50.7 % (38.7-73.9); Platelet Count 139 T/CUMM (130-400); Red Blood Count 3.22 MC/CUMM (3.8-5.5); Red Cell Distribution Width 15.9 % (9.3-17.3); White Blood Count 4.6 T/CUMM (4-12)
[2017-02-06 04:50] LABS: Calcium 10.2 MG/DL (8.5-10.1); Magnesium 1.9 MG/DL (1.8-2.4); Osmolality,Calculated 286.8 MOS/KG (273-304); Potassium 3.5 MMOL/L (3.5-5.1)
--- NOTE | 2017-02-06 07:58 | Pulmonology Progress Note ---
Pulmonary - PN: Subj Interval history: This 77-year-old black female is in with congestive heart failure. I was asked to see her because of wheezing. Her chest x-ray is consistent with heart failure. She is a non-smoker. Certainly she could have a superimposed bronchitis and I have chosen to put her on some Levaquin and bronchodilators. However I think her wheezing is due to heart failure. She has renal insufficiency which makes it difficult to diurese her. She has been wheezing since admission. Her weight is not down. 02/03/2017 patient is a little better today. Mostly hearing upper airway noises from listening to her chest. Would finish out about 5 more days of Levaquin by mouth. Needs a bronchodilator such as albuterol. I do think she has acute bronchitis. Her congestive heart failure appears to be fairly well controlled. 02/06/2017 patient feeling much better. Chest x-ray shows clear lungs with cardiomegaly. Lungs sound clear. Change Levaquin to oral. Patient can be discharged anytime from pulmonary standpoint. Exam (Progress Note) - Constitutional Vitals: Period Temp Pulse Resp BP Sys/Marie Pulse Ox Last 24 Hr 97 F-98.0 F 75-95 16-20 96-135/53-69 93-98 Exam: Patient is alert sitting up in a chair. Wearing nasal oxygen. Vital signs normal. Pupils react to light. Throat is clear. Neck supple no bruits. Chest sounds clear. Heart normal rate, irregular rhythm, grade 2/6 systolic murmur left sternal border. Abdomen soft nontender no masses. Extremities no clubbing or cyanosis she has some chronic 2+ leg edema. Results - Labs CBC & BMP: 02/06/17 04:13 02/06/17 04:13 Lab Results: I have reviewed the past 24 hour labs - Diagnostic Findings Procedure: Chest x-ray: image reviewed by me (Cardiomegaly, clear lungs) Assessment and Plan (1) Acute on chronic systolic (congestive) heart failure Status: Acute Assessment and plan: Ejection fraction 35% with severe mitral regurgitation as the cause for congestive heart failure. Also likely fluid retention related to renal insufficiency. There is no chest x-ray to review to see whether she is ahead on fluids now or not. Will order chest x-ray. 02/02/2017 continuing with diuresis. She is on big doses of Lasix plus Zaroxolyn. Has renal insufficiency with creatinine of around 2.5. Because of her failure is acute on chronic systolic plus mitral regurgitation. 02/03/2017 has cardiomegaly and known systolic congestive heart failure with ejection fraction 35%. BNP only minimally elevated. Seems to be under control. Defer to cardiology and renal. 02/06/2017 defer to cardiology. Current Visit: Yes (2) Mitral regurgitation Status: Acute Assessment and plan: Apparently severe mitral regurgitation. 02/02/2017 defer to cardiology Current Visit: Yes (3) Acute bronchitis Status: Acute Assessment and plan: She is wheezing and coughing and has had some sputum production. Not sure whether she has a superimposed bronchitis atop her congestive heart failure. Chest x-ray will help us with that. We will go ahead and empirically put her on Levaquin. She is on bronchodilators already. Will not use steroids. 02/02/2017 she is on empiric medication for bronchitis because of the persistent wheezing and cough. She had some sputum production earlier. There is been no fever. She does not have chronic lung disease. 02/03/2017 based on her history I do think she had acute bronchitis. It is better with Levaquin and bronchodilators. Would finish out about 5 more days of Levaquin. Patient can be discharged anytime from my standpoint 02/06/2017 lungs are clear. Both to auscultation and by x-ray. Change to oral Levaquin. Home anytime. Current Visit: Yes (4) Chronic renal insufficiency Status: Acute Assessment and plan: Creatinine around 2.2. Making it difficult to diurese her 02/02/2017 again the renal insufficiency makes it difficult to diurese her to treat her heart failure. 02/06/2017 creatinine 2.9. Renal following. Current Visit: No (5) Cardiomyopathy Status: Chronic Assessment and plan: Ejection fraction 35%. Defer to cardiology. Current Visit: No (6) Atrial fibrillation Status: Chronic Assessment and plan: Chronic anticoagulants. 02/02/2017 rate is controlled. 02/03/2017 continuing anticoagulants and rate control Current Visit: No Qualifiers: Atrial fibrillation type: persistent Qualified Code(s): I48.1 - Persistent atrial fibrillation
[2017-02-06] MEDS: POTASSIUM CHLORIDE 20 MEQ TABLET PO SCH ×2 (08:12→21:09)
[2017-02-06] MEDS: FERROUS SULFATE 325 MG TABLET PO SCH ×2 (08:12→21:08)
[2017-02-06] MEDS: DOCUSATE SODIUM 100 MG CAPSULE PO SCH ×2 (08:12→21:08)
[2017-02-06] MEDS: LEVOFLOXACIN 250 MG TABLET PO SCH (08:12)
[2017-02-06] MEDS: METOCLOPRAMIDE 5 MG TABLET PO SCH ×3 (08:12→16:03)
[2017-02-06] MEDS: ALLOPURINOL 300 MG TABLET PO SCH (08:13)
[2017-02-06] MEDS: hydrALAZINE 25 MG TABLET PO SCH ×2 (08:13→21:08)
[2017-02-06] MEDS: CARVEDILOL 3.125 MG TABLET PO SCH ×2 (08:13→21:08)
[2017-02-06] MEDS: FUROSEMIDE 40 MG/4 ML VIAL IV SCH (08:14)
[2017-02-06] MEDS: SUCRALFATE 1 GM TABLET PO SCH ×3 (08:14→16:03)
[2017-02-06] MEDS: FLUTICASONE 50 MCG NASAL SPRAY 16 GM BOTTLE BOTH NARES SCH (08:14)
[2017-02-06] MEDS: PANTOPRAZOLE 40 MG TABLET PO SCH ×2 (08:15→21:08)
--- NOTE | 2017-02-06 08:22 | Cardiology Progress Note ---
<Kayla López E - Last Filed: 02/06/17 08:10> Assessment and Plan - Time spent with patient Time spent with patient: Less than 30 minutes (1) Acute systolic CHF (congestive heart failure) Status: Acute Assessment and plan: See plan of care listed below. Current Visit: Yes (2) Cardiomyopathy Status: Chronic Assessment and plan: See plan of care listed below. Current Visit: No (3) Atrial fibrillation Status: Chronic Assessment and plan: See plan of care listed below. Current Visit: No Qualifiers: Atrial fibrillation type: persistent Qualified Code(s): I48.1 - Persistent atrial fibrillation (4) Chronic renal insufficiency Status: Acute Assessment and plan: See plan of care listed below. Current Visit: No (5) Anemia Status: Acute Assessment and plan: See plan of care listed below. Current Visit: No Qualifiers: Chronic kidney disease stage: stage 3 (moderate) (6) Acute bronchitis Status: Acute Assessment and plan: See plan of care listed below. Current Visit: Yes (7) GERD (gastroesophageal reflux disease) Status: Chronic Assessment and plan: See plan of care listed below. Current Visit: Yes (8) Obesity Status: Chronic Assessment and plan: See plan of care listed below. Current Visit: Yes Cardiology - PN: Subj Interval history: Radiosonde Operator: Dr. Monaco PCP: Dr. Donovan Ms. Lynn is a 77-year-old -[place] female with history of persistent atrial fibrillation, cardiomyopathy, diastolic dysfunction, hypertension, prior ischemic stroke, chronic renal insufficiency, bilateral lower extremity venous insufficiency, gout, obesity, COPD, systolic CHF, GERD. Risk factors are significant for: Hypertension, obesity, sedentary lifestyle. She was previously admitted to the hospital on 01/15/17 with anticipation of renal prophylactic saline gently before [facility] on 01/16/17 but was found to be profoundly anemic. Her cath was cancelled and she was found to have multiple antral gastric ulcers and a hiatal hernia. She returned to Dr. Monaco's clinic for follow up on 01/26/17 with dyspnea and edema. She reported 2 pillow orthopnea and difficulty moving her legs due to the heaviness from her edema. She was admitted to the hospital from clinic for diuresis and further workup and treatment of acutely decompensated heart failure and evaluation of worsening anemia with epistaxis. Ms. Lynn reports she is feeling better this morning. She tells me she was able to go without her oxygen most of the weekend but had to resume O2 this morning due to low SpO2 of 94%. Her lung exam sounds much better than previous days. Will further discuss possible LHC with Dr. Fierro and await his recommendations. This has been postponed on numerous occasions. She is not a candidate for intervention at this time until her ulcers have time to heal. It is probably best that we continue treating her medically. ASSESSMENT/PLAN: 1. ACUTE ON CHRONIC COMBINED SYSTOLIC AND DIASTOLIC CHF -continue diuretic therapy. Continue beta-merissa and SONAL inhibitor. Nephrology has been consulted for their input regarding her renal insufficiency. She has diuresed well with the addition of metolazone although she continues to have considerable bilateral lower extremity edema. Her weight has gone from 262.6# to 230#. She still needs to undergo heart catheterization. If her renal function H&H remained stable, it may be possible to proceed with diagnostic catheterization. She would not be a candidate for intervention or dual antiplatelet therapy based on her comorbidities including anemia and heme- positive stools. 2. CARDIOMYOPATHY, UNSPECIFIED -echocardiogram done 12/08/2016 revealed EF 35%, grade 3 diastolic dysfunction, severe LVH, moderate to severe mitral regurgitation, mild aortic insufficiency, moderate pulmonic regurgitation, and moderate to severe tricuspid regurgitation. She was also noted to have evidence of pulmonary hypertension with PAP 65 mmHg. 3. PERSISTENT ATRIAL FIBRILLATION - She is currently rate controlled. Continue Coreg 3.125mg PO BID. Treatment is very difficult given her anemia and continued apparent intestinal blood loss with worsening anemia and heme positive stools. She has been started on low dose anticoagulation for stroke prevention. We will continue to follow her CBC. 4. CHRONIC RENAL INSUFFICIENCY - Will consult Nephrology for their input. Creatinine is up to 2.9 with GFR 21. Her renal insufficiency has prohibited left heart catheterization and is been felt that coronary disease is a high probability. Will further discuss with Dr. Fierro and await his recommendations. 5. ANEMIA -she still has 4+ heme positive stool but has no gross bleeding. H&H dropped during hospitalization and she required blood transfusion. GI was consulted and performed colonoscopy on 02/03/17 which revealed diverticulosis coli and internal hemorrhoids. H&H is now stable at 9.5 and 29.6. She has been started on low dose anticoagulation for stroke prevention. We will continue to follow her CBC. 6. ACUTE BRONCHITIS - We appreciate pulmonology's assistance. Continuing O2 and breathing treatments. She continues to have some productive sputum. Pulmonology does not feel she has chronic lung disease. It is felt she has acute bronchitis and has been receiving treatment with bronchodilators and Levaquin. Chest x-ray this morning shows clear lungs with cardiomegaly. 7. GERD - Continue PPI. 8. OBESITY - Chronic. Exam (Progress Note) - Constitutional Vitals: Period Temp Pulse Resp BP Sys/Marie Pulse Ox Last 24 Hr 97 F-98.0 F 75-95 16-20 96-135/53-65 93-98 Exam: General: Present: Appears Well, No Apparent Distress. Pleasant and cooperative. Appears comfortable. HEENT: Present: PERRL, Normocephaly, atraumatic. Mucus Membranes Moist. No jaundice noted. Conjunctiva moist and clear, sclerae anicteric Neck: Present: Supple Neck, Midline Trachea, No Masses, No Bruit, No tenderness Cardiac: Present: Irregular Rate and Rhythm, Systolic Murmur, no chest wall tenderness Lungs: Present: lungs clear to auscultation bilaterally . Neuro: Present: Awake, alert, and oriented x3. Moves all extremities well without hemiparesis or paralysis. Grossly Intact. Absent: Resting Tremor, Essential Tremor Abdomen: Present: Soft, Active Bowel Sounds, No Masses, Non-Tender, nondistended. No abdominal bruit or thrill noted. Skin: Present: Clear. Absent: Rash, No skin breakdown. Back: Normal inspection, no vertebral tenderness. Musculoskeletal: Present: No Fluid Collection, No Pain Extremities: Present: Normal Gait, No Clubbing, No Cyanosis, Upper Extr. Pulses 2+, Lower Extr. Pulses 2+, no significant edema to BLE. Capillary refill less than 3 seconds. Result/EKG - Labs CBC & BMP: 02/06/17 04:13 02/06/17 04:13 Lab Results: I have reviewed the past 24 hour labs Labs: Laboratory Results - last 24 hr 02/06/17 02/06/17 04:13 04:13 WBC 4.6 RBC 3.22 L Hgb 9.5 L Hct 29.6 L MCV 91.9 MCH 30 MCHC 32.1 RDW 15.9 Plt Count 139 MPV 11.1 Neut % (Auto) 50.7 Lymph % (Auto) 29.4 [place] % (Auto) 14.3 H Eos % (Auto) 5.0 Baso % (Auto) 0.4 Neut # (Auto) 2.4 Lymph # (Auto) 1.4 [place] # (Auto) 0.7 Eos # (Auto) 0.2 Baso # (Auto) 0.0 Immature Gran % 0.2 Nucleated RBC % 0.0 Immature Gran # 0.01 Nucleated RBCs # 0.00 Sodium 137 Potassium 3.5 Chloride 93 L Carbon Dioxide 39 H Anion Gap 8.5 BUN 52 H Creatinine 2.90 H GFR Calculation 21 BUN/Creatinine Ratio 17.00 Glucose 97 Calculated Osmolality 286.8 Calcium 10.2 H Magnesium 1.9 - EKG EKG results: interpreted by me EKG shows: atrial fibrillation Quality Measures - VTE Contraindication to Pharmacological VTE Prophylaxis: High Risk of Bleeding <Yusuf Fierro - Last Filed: 02/06/17 09:46> Cardiology - PN: Subj Interval history: Cardiology addendum. Patient examined chart reviewed and discussed with nurse Kayla López NP. O2 sat 90% 2 L Blood pressure 110/60 Cardiomyopathy EF 35% by recent echo chronic atrial fibrillation Chronic renal insufficiency Recent gastric antral ulcers Obesity 5 feet 4 inches tall, 262 pounds on admission and 230 pounds today Anemia status post transfusion Mitral regurgitation Colonoscopy 623 showed diverticulosis and internal hemorrhoids Patient chews tobacco but never smoked. Prior history of heavy alcohol abuse, quit 20 years ago Patient lives alone in [place] in a trailer Hemoglobin 9.5 hematocrit 29.6 BUN 52 creatinine 2.90 potassium 3.5 glucose 97 Plan 80 mg IV Lasix daily 25 mg twice daily hydralazine 3.125 g twice daily carvedilol BMP in a.m. Exam (Progress Note) - Constitutional Vitals: Period Temp Pulse Resp BP Sys/Marie Pulse Ox Last 24 Hr 97 F-98.0 F 75-95 16-20 96-135/53-65 93-99 Result/EKG - Labs CBC & BMP: 02/06/17 04:13 02/06/17 04:13 Labs: Laboratory Results - last 24 hr 02/06/17 02/06/17 04:13 04:13 WBC 4.6 RBC 3.22 L Hgb 9.5 L Hct 29.6 L MCV 91.9 MCH 30 MCHC 32.1 RDW 15.9 Plt Count 139 MPV 11.1 Neut % (Auto) 50.7 Lymph % (Auto) 29.4 [place] % (Auto) 14.3 H Eos % (Auto) 5.0 Baso % (Auto) 0.4 Neut # (Auto) 2.4 Lymph # (Auto) 1.4 [place] # (Auto) 0.7 Eos # (Auto) 0.2 Baso # (Auto) 0.0 Immature Gran % 0.2 Nucleated RBC % 0.0 Immature Gran # 0.01 Nucleated RBCs # 0.00 Sodium 137 Potassium 3.5 Chloride 93 L Carbon Dioxide 39 H Anion Gap 8.5 BUN 52 H Creatinine 2.90 H GFR Calculation 21 BUN/Creatinine Ratio 17.00 Glucose 97 Calculated Osmolality 286.8 Calcium 10.2 H Magnesium 1.9
--- NOTE | 2017-02-06 08:42 | XRay Report ---
Exam: XR chest 2V Date: 02/06/2017 4:00 AM Indication: CHF Comparison: 02/01/2017 Technical: PA lateral Findings: Cardiomegaly present. External cardiac leads are present. Degenerative change present along thoracic spine. No obvious infiltrate or effusion. The mediastinum is otherwise intact. Arthritic changes are present in the thoracolumbar spine. Arthritic changes are also present over the shoulders. Impression: 1. Cardiomegaly without decompensation 2. Degenerative spondylosis thoracic spine 3. No acute infiltrates or overt congestive failure PROCEDURE INTERPRETED AT [facility] DEPARTMENT OF RADIOLOGY Final Report Signed by: Dr. Jozef Dimas
--- NOTE | 2017-02-06 09:38 | Nephrology Progress Note ---
Nephrology - PN: Subj Interval history: Pt states breathing better. Denies pain. Creatinine stable. Exam (PN)-Nephrology - Vital Signs Vital signs: Period Temp Pulse Resp BP Sys/Marie Pulse Ox Last 24 Hr 97 F-98.0 F 75-95 16-20 96-135/53-65 93-99 - General Appearance General appearance: well-developed, obese EENT: ATNC, PERRL, mucous membranes dry, hearing intact, vision intact Neck: no JVD, no thyromegaly Respiratory: no kyphosis, clear Cardiology: no murmurs, no rub Gastrointestinal: normoactive bowel sounds, no tenderness Integumentary: no rash, warm and dry Neurologic: no focal deficit, no asterixis, alert and oriented x3 Musculoskeletal: no deformities, no erythema Psychiatric: mood/affect appropriate, cooperative - Lab 02/06/17 04:13 02/06/17 04:13 Most recent lab results Calcium 10.2 MG/DL (8.5-10.1) H 02/06/17 04:13 Magnesium 1.9 MG/DL (1.8-2.4) 02/06/17 04:13 Assessment and Plan (1) Metabolic alkalosis Problem details: stable to improved. Status: Acute Current Visit: Yes (2) Hypercalcemia Status: Acute Current Visit: Yes (3) CKD (chronic kidney disease) stage 4, GFR 15-29 ml/min Problem details: Likely as tuned up as she can be as far as diuresis/CHF without causing acute renal injury from prolonged prerenal state. No indication for renal replacement therapy at this time. Status: Acute Assessment and plan: No new recs. Will continue to follow with you. Current Visit: Yes
[2017-02-06 10:42] LABS: Parathyroid Hormone Intact 121.2 PG/ML (14-72)
--- NOTE | 2017-02-06 10:46 | Gastrointestinal Progress Note ---
Assessment and Plan (1) Anemia Status: Acute Assessment and plan: 02/06-Hgb stable at 9.5. No bleeding noted. Tolerating diet. Add prn Mirilax. Plan and addendum to follow by Dr Morrell. 02/02-hemoglobin 9.2. No overt bleeding. No history of endoscopy at [place]. Tolerating diet. Continue to monitor at present time. Plan an addendum to follow Dr. Morrell. 02/01-Hgb stable at 9.3. No overt bleeding. [place] records still pending. Plan and addendum to follow by Dr Morrell. 01/31-hemoglobin improved following blood transfusion. No overt bleeding reported. Tolerating diet at present time. Records from [place] still pending. Plan addendum follow Dr. Morrell. 01/30-admitted with shortness of breath and edema, findings of anemia with drop in hemoglobin over weekend without overt bleeding. 4+ stools for occult blood found. To be transfused 2 units of packed red blood cells today. Hemoglobin at 8.2 on admission now down to 7.8. Recent EGD with last hospitalization, findings of gastric antral ulcers. Plan an addendum to followed by Dr. Morrell. Current Visit: No Qualifiers: Chronic kidney disease stage: stage 3 (moderate) Gastroenterology - PN: Subj Interval history: CC: Anemia Pt is seen, awake and alert sitting up in chair. States she is feeling better today. States she went the whole weekend without using her oxygen and her breathing is improved. She denies any overt bleeding. Colonoscopy on Monday results noted with diverticulosis and internal hemorrhoids. Hgb is stable at 9.5. Abdomen is soft, nontender. Tolerating her diet well but hasnt had bowel movement since Monday. Will add back daily Miralax as needed. ROS: Denies SOB or chest pain Exam (Progress Note) - Constitutional Vitals: Period Temp Pulse Resp BP Sys/Marie Pulse Ox Last 24 Hr 97 F-98.0 F 75-95 16-20 96-135/53-65 93-99 General appearance: normal weight, no acute distress - Head Head exam: Present: normal inspection, normocephalic - Eye Eye exam: Present: other (lids and conjunctiva unremarkable). Absent: scleral icterus - ENT ENT exam: Present: normal exam, normal oropharynx - Neck Neck exam: Present: normal inspection - Respiratory Respiratory exam: Present: clear to auscultation bilaterally. Absent: rales, rhonchi, wheezes - Cardiovascular Cardiovascular exam: Present: regular rate and rhythm. Absent: diastolic murmur , JVD, systolic murmur - GI/Abdominal GI/Abdominal exam: Present: normal bowel sounds, soft. Absent: ascites, distended, mass, organomegaly, tenderness - Extremities Exam Extremities exam: Present: normal inspection, full ROM - Back Exam Back exam: Present: normal inspection - Neurological Exam Neurological exam: Present: alert, oriented X3 - Psychiatric Psychiatric exam: Present: normal affect, normal mood - Skin Skin exam: Present: normal color, warm, dry Results - Labs CBC & BMP: 02/06/17 04:13 02/06/17 04:13 Lab Results: I have reviewed the past 24 hour labs
[2017-02-06 10:52] LABS: 25 Hydroxy Vitamin D Total 16.4 NG/ML
[2017-02-06] MEDS: SODIUM CHLORIDE 0.45% 1,000 ML IV SCH (13:54)
[2017-02-06] MEDS: LACTULOSE 20 GM/30 ML UDCUP PO PRN (13:54)
[2017-02-06] MEDS: MONTELUKAST 10 MG TABLET PO SCH (21:09)
[2017-02-07] MEDS: ALBUTEROL/IPRATROPIUM 3 ML NEB RESP TX SCH ×4 (01:03→19:26)
[2017-02-07 05:48] LABS: Basophils % 0.2 % (0.0-0.8); Eosinophils # 0.2 10*3/uL (0.0-0.87); Eosinophils % 4.6 % (0.00-10.9); Hematocrit 28.1 VOL% (35.7-47.0); Hemoglobin 8.9 GM/DL (12.0-16.0); Immature Granulocytes % 0.2 %; Immature Granulocytes Absolute 0.01 #; Lymphocytes # 1.3 10*3/uL (1.4-4.0); Lymphocytes % 30.1 % (21.3-54.2); Mean Corpuscular HGB Conc 31.7 GM/DL (32-36); Mean Corpuscular Hemoglobin 29 PG (27-34); Mean Corpuscular Volume 92.7 FL (87-102); Mean Platelet Volume 11.8 FL (9.6-12.0); Monocytes # 0.6 10*3/uL (0.11-0.8); Monocytes % 13.1 % (1.7-12.7); Neutrophils # 2.3 10*3/uL (1.4-7.4); Neutrophils % 51.8 % (38.7-73.9); Platelet Count 144 T/CUMM (130-400); Red Blood Count 3.03 MC/CUMM (3.8-5.5); White Blood Count 4.4 T/CUMM (4-12)
[2017-02-07 06:17] LABS: Magnesium 1.9 MG/DL (1.8-2.4); Osmolality,Calculated 289.5 MOS/KG (273-304); Potassium 3.7 MMOL/L (3.5-5.1)
[2017-02-07 06:20] LABS: Calcium 9.9 MG/DL (8.5-10.1); Osmolality,Calculated 287.7 MOS/KG (273-304); Potassium 3.8 MMOL/L (3.5-5.1)
--- NOTE | 2017-02-07 07:57 | Pulmonology Progress Note ---
Pulmonary - PN: Subj Interval history: This 77-year-old black female is in with congestive heart failure. I was asked to see her because of wheezing. Her chest x-ray is consistent with heart failure. She is a non-smoker. Certainly she could have a superimposed bronchitis and I have chosen to put her on some Levaquin and bronchodilators. However I think her wheezing is due to heart failure. She has renal insufficiency which makes it difficult to diurese her. She has been wheezing since admission. Her weight is not down. 02/03/2017 patient is a little better today. Mostly hearing upper airway noises from listening to her chest. Would finish out about 5 more days of Levaquin by mouth. Needs a bronchodilator such as albuterol. I do think she has acute bronchitis. Her congestive heart failure appears to be fairly well controlled. 02/06/2017 patient feeling much better. Chest x-ray shows clear lungs with cardiomegaly. Lungs sound clear. Change Levaquin to oral. Patient can be discharged anytime from pulmonary standpoint. 02/07/2017 patient is not coughing and her shortness of breath is markedly improved. No further wheezing. I will sign off please call if needed further Exam (Progress Note) - Constitutional Vitals: Period Temp Pulse Resp BP Sys/Marie Pulse Ox Last 24 Hr 96.2 F-99.3 F 70-89 16-20 93-126/44-70 90-99 Exam: Patient is alert sitting up in a chair. She is on room air. Vital signs normal. Pupils react to light. Throat is clear. Neck supple no bruits. Chest sounds clear. Heart normal rate, irregular rhythm, grade 2/6 systolic murmur left sternal border. Abdomen soft nontender no masses. Extremities no clubbing or cyanosis she has some chronic 2+ leg edema. Results - Labs CBC & BMP: 02/07/17 05:34 02/07/17 05:34 Lab Results: I have reviewed the past 24 hour labs Assessment and Plan (1) Acute on chronic systolic (congestive) heart failure Status: Acute Assessment and plan: Ejection fraction 35% with severe mitral regurgitation as the cause for congestive heart failure. Also likely fluid retention related to renal insufficiency. There is no chest x-ray to review to see whether she is ahead on fluids now or not. Will order chest x-ray. 02/02/2017 continuing with diuresis. She is on big doses of Lasix plus Zaroxolyn. Has renal insufficiency with creatinine of around 2.5. Because of her failure is acute on chronic systolic plus mitral regurgitation. 02/03/2017 has cardiomegaly and known systolic congestive heart failure with ejection fraction 35%. BNP only minimally elevated. Seems to be under control. Defer to cardiology and renal. 02/06/2017 defer to cardiology. 02/07/2017 this appears to be fairly well controlled with current medications. Defer to cardiology. Current Visit: Yes (2) Mitral regurgitation Status: Acute Assessment and plan: Apparently severe mitral regurgitation. 02/02/2017 defer to cardiology Current Visit: Yes (3) Acute bronchitis Status: Acute Assessment and plan: She is wheezing and coughing and has had some sputum production. Not sure whether she has a superimposed bronchitis atop her congestive heart failure. Chest x-ray will help us with that. We will go ahead and empirically put her on Levaquin. She is on bronchodilators already. Will not use steroids. 02/02/2017 she is on empiric medication for bronchitis because of the persistent wheezing and cough. She had some sputum production earlier. There is been no fever. She does not have chronic lung disease. 02/03/2017 based on her history I do think she had acute bronchitis. It is better with Levaquin and bronchodilators. Would finish out about 5 more days of Levaquin. Patient can be discharged anytime from my standpoint 02/06/2017 lungs are clear. Both to auscultation and by x-ray. Change to oral Levaquin. Home anytime. 02/07/2017 bronchitis has resolved. 1 or 2 more days of Levaquin should suffice. Current Visit: Yes (4) Chronic renal insufficiency Status: Acute Assessment and plan: Creatinine around 2.2. Making it difficult to diurese her 02/02/2017 again the renal insufficiency makes it difficult to diurese her to treat her heart failure. 02/06/2017 creatinine 2.9. Renal following. Current Visit: No (5) Cardiomyopathy Status: Chronic Assessment and plan: Ejection fraction 35%. Defer to cardiology. Current Visit: No (6) Atrial fibrillation Status: Chronic Assessment and plan: Chronic anticoagulants. 02/02/2017 rate is controlled. 02/03/2017 continuing anticoagulants and rate control Current Visit: No Qualifiers: Atrial fibrillation type: persistent Qualified Code(s): I48.1 - Persistent atrial fibrillation
--- NOTE | 2017-02-07 08:10 | Cardiology Progress Note ---
<Kayla López E - Last Filed: 02/07/17 08:17> Assessment and Plan - Time spent with patient Time spent with patient: Less than 30 minutes (1) Acute systolic CHF (congestive heart failure) Status: Acute Assessment and plan: See plan of care listed below. Current Visit: Yes (2) Cardiomyopathy Status: Chronic Assessment and plan: See plan of care listed below. Current Visit: No (3) Atrial fibrillation Status: Chronic Assessment and plan: See plan of care listed below. Current Visit: No Qualifiers: Atrial fibrillation type: persistent Qualified Code(s): I48.1 - Persistent atrial fibrillation (4) Chronic renal insufficiency Status: Acute Assessment and plan: See plan of care listed below. Current Visit: No (5) Anemia Status: Acute Assessment and plan: See plan of care listed below. Current Visit: No Qualifiers: Chronic kidney disease stage: stage 3 (moderate) (6) Acute bronchitis Status: Acute Assessment and plan: See plan of care listed below. Current Visit: Yes (7) GERD (gastroesophageal reflux disease) Status: Chronic Assessment and plan: See plan of care listed below. Current Visit: Yes (8) Obesity Status: Chronic Assessment and plan: See plan of care listed below. Current Visit: Yes Cardiology - PN: Subj Interval history: Safety Officer: Dr. Monaco PCP: Dr. Donovan Ms. Lynn is a 77-year-old -[place] female with history of persistent atrial fibrillation, cardiomyopathy, diastolic dysfunction, hypertension, prior ischemic stroke, chronic renal insufficiency, bilateral lower extremity venous insufficiency, gout, obesity, COPD, systolic CHF, GERD. Risk factors are significant for: Hypertension, obesity, sedentary lifestyle. She was previously admitted to the hospital on 01/15/17 with anticipation of renal prophylactic saline gently before LHC on 01/16/17 but was found to be profoundly anemic. Her cath was cancelled and she was found to have multiple antral gastric ulcers and a hiatal hernia. She returned to Dr. Monaco's clinic for follow up on 01/26/17 with dyspnea and edema. She reported 2 pillow orthopnea and difficulty moving her legs due to the heaviness from her edema. She was admitted to the hospital from clinic for diuresis and further workup and treatment of acutely decompensated heart failure and evaluation of worsening anemia with epistaxis. LHC has been postponed on numerous occasions. She is not a candidate for intervention at this time until her ulcers have time to heal. It is probably best that we continue treating her medically. She is feeling well today. She is sitting up on the side of the bed receiving a breathing treatment upon exam today. ASSESSMENT/PLAN: 1. ACUTE ON CHRONIC COMBINED SYSTOLIC AND DIASTOLIC CHF -continue diuretic therapy. Continue beta-merissa and SONAL inhibitor. Nephrology has been consulted for their input regarding her renal insufficiency. She has diuresed well with the addition of metolazone although she continues to have considerable bilateral lower extremity edema. Her weight has gone from 262.6# to 230#. She still needs to undergo heart catheterization. If her renal function H&H remained stable, it may be possible to proceed with diagnostic catheterization. She would not be a candidate for intervention or dual antiplatelet therapy based on her comorbidities including anemia and heme- positive stools. Will continue current plan of care. Continue IV Lasix, PO hydralazine, PO Carvedilol. 2. CARDIOMYOPATHY, UNSPECIFIED -echocardiogram done 12/08/2016 revealed EF 35%, grade 3 diastolic dysfunction, severe LVH, moderate to severe mitral regurgitation, mild aortic insufficiency, moderate pulmonic regurgitation, and moderate to severe tricuspid regurgitation. She was also noted to have evidence of pulmonary hypertension with PAP 65 mmHg. 3. PERSISTENT ATRIAL FIBRILLATION - She is currently rate controlled. Continue Coreg 3.125mg PO BID. Treatment is very difficult given her anemia and continued apparent intestinal blood loss with worsening anemia and heme positive stools. She has been started on low dose anticoagulation for stroke prevention. We will continue to follow her CBC. H&H stable today. 4. CHRONIC RENAL INSUFFICIENCY - Nephrology is following. Creatinine is down to 2.7 with GFR 23. Her renal insufficiency has prohibited left heart catheterization and is been felt that coronary disease is a high probability. Will further discuss with Dr. Fierro and await his recommendations. 5. ANEMIA -she still has 4+ heme positive stool but has no gross bleeding. H&H dropped during hospitalization and she required blood transfusion. GI was consulted and performed colonoscopy on 02/03/17 which revealed diverticulosis coli and internal hemorrhoids. H&H is now stable at 9.5 and 29.6. She has been started on low dose anticoagulation for stroke prevention. We will continue to follow her CBC. 6. ACUTE BRONCHITIS - We appreciate pulmonology's assistance. Continuing O2 and breathing treatments. She continues to have some productive sputum. Pulmonology does not feel she has chronic lung disease. It is felt she has acute bronchitis and has been receiving treatment with bronchodilators and Levaquin. Chest x-ray 02/06/17 shows clear lungs with cardiomegaly. She has a faint inspiratory wheeze this morning while receiving breathing treatment. 7. GERD - Continue PPI. 8. OBESITY - Chronic. Exam (Progress Note) - Constitutional Vitals: Period Temp Pulse Resp BP Sys/Marie Pulse Ox Last 24 Hr 96.2 F-99.3 F 70-89 16-20 93-126/44-70 90-99 Exam: General: Present: Appears Well, No Apparent Distress. Pleasant and cooperative. Appears comfortable. HEENT: Present: PERRL, Normocephaly, atraumatic. Mucus Membranes Moist. No jaundice noted. Conjunctiva moist and clear, sclerae anicteric Neck: Present: Supple Neck, Midline Trachea, No Masses, No Bruit, No tenderness Cardiac: Present: Irregular Rate and Rhythm, Systolic Murmur, no chest wall tenderness Lungs: Present: faint inspiratory wheeze posteriorly, otherwise clear to auscultation bilaterally . Neuro: Present: Awake, alert, and oriented x3. Moves all extremities well without hemiparesis or paralysis. Grossly Intact. Absent: Resting Tremor, Essential Tremor Abdomen: Present: Soft, Active Bowel Sounds, No Masses, Non-Tender, nondistended. No abdominal bruit or thrill noted. Skin: Present: Clear. Absent: Rash, No skin breakdown. Back: Normal inspection, no vertebral tenderness. Musculoskeletal: Present: No Fluid Collection, No Pain Extremities: Present: Normal Gait, No Clubbing, No Cyanosis, Upper Extr. Pulses 2+, Lower Extr. Pulses 2+, trace pitting edema to BLE. Capillary refill less than 3 seconds. Result/EKG - Labs CBC & BMP: 02/07/17 05:34 02/07/17 05:34 Lab Results: I have reviewed the past 24 hour labs Labs: Laboratory Results - last 24 hr 02/06/17 02/07/17 02/07/17 09:55 05:34 05:34 WBC 4.4 RBC 3.03 L Hgb 8.9 L Hct 28.1 L MCV 92.7 MCH 29 MCHC 31.7 L RDW 16.0 Plt Count 144 MPV 11.8 Neut % (Auto) 51.8 Lymph % (Auto) 30.1 [place] % (Auto) 13.1 H Eos % (Auto) 4.6 Baso % (Auto) 0.2 Neut # (Auto) 2.3 Lymph # (Auto) 1.3 L [place] # (Auto) 0.6 Eos # (Auto) 0.2 Baso # (Auto) 0.0 Immature Gran % 0.2 Nucleated RBC % 0.0 Immature Gran # 0.01 Nucleated RBCs # 0.00 Sodium 138 Potassium 3.8 Chloride 95 L Carbon Dioxide 34 H Anion Gap 12.8 BUN 52 H Creatinine 2.80 H GFR Calculation 22 BUN/Creatinine Ratio 18.00 Glucose 83 Calculated Osmolality 287.7 Calcium 9.9 Magnesium 25-OH Vitamin D Total 16.4 PTH Intact 121.2 H 02/07/17 05:34 WBC RBC Hgb Hct MCV MCH MCHC RDW Plt Count MPV Neut % (Auto) Lymph % (Auto) [place] % (Auto) Eos % (Auto) Baso % (Auto) Neut # (Auto) Lymph # (Auto) [place] # (Auto) Eos # (Auto) Baso # (Auto) Immature Gran % Nucleated RBC % Immature Gran # Nucleated RBCs # Sodium 139 Potassium 3.7 Chloride 96 L Carbon Dioxide 36 H Anion Gap 10.7 BUN 52 H Creatinine 2.70 H GFR Calculation 23 BUN/Creatinine Ratio 19.00 Glucose 87 Calculated Osmolality 289.5 Calcium 10.0 Magnesium 1.9 25-OH Vitamin D Total PTH Intact - EKG EKG results: interpreted by me EKG shows: atrial fibrillation Quality Measures - VTE Contraindication to Pharmacological VTE Prophylaxis: High Risk of Bleeding <Yusuf Fierro - Last Filed: 02/07/17 08:48> Cardiology - PN: Subj Interval history: Cardiology addendum No nausea. No short of breath at rest. Telemetry shows controlled atrial fib. O2 sat 96% on 2 L Regular rhythm no gallop Decreased breath sounds but fairly clear Abdomen soft benign Trace leg edema Lab data today Potassium 3.7 BUN 52 creatinine down to 2.70 Cardio myopathy, EF 35% Chronic atrial fibrillation Chronic renal insufficiency Recent gastric ulcers Anemia with transfusion Chews tobacco never smoked Remote history of heavy alcohol abuse Plan Lasix 80 mg IV daily Hydralazine 25 mg twice daily Coreg 3.125 mg twice daily Eliquis 2.5 mg twice daily BMP in a.m. Exam (Progress Note) - Constitutional Vitals: Period Temp Pulse Resp BP Sys/Marie Pulse Ox Last 24 Hr 96.2 F-99.3 F 70-89 16-20 93-126/44-70 90-99 Result/EKG - Labs CBC & BMP: 02/07/17 05:34 02/07/17 05:34 Labs: Laboratory Results - last 24 hr 02/06/17 02/07/17 02/07/17 09:55 05:34 05:34 WBC 4.4 RBC 3.03 L Hgb 8.9 L Hct 28.1 L MCV 92.7 MCH 29 MCHC 31.7 L RDW 16.0 Plt Count 144 MPV 11.8 Neut % (Auto) 51.8 Lymph % (Auto) 30.1 [place] % (Auto) 13.1 H Eos % (Auto) 4.6 Baso % (Auto) 0.2 Neut # (Auto) 2.3 Lymph # (Auto) 1.3 L [place] # (Auto) 0.6 Eos # (Auto) 0.2 Baso # (Auto) 0.0 Immature Gran % 0.2 Nucleated RBC % 0.0 Immature Gran # 0.01 Nucleated RBCs # 0.00 Sodium 138 Potassium 3.8 Chloride 95 L Carbon Dioxide 34 H Anion Gap 12.8 BUN 52 H Creatinine 2.80 H GFR Calculation 22 BUN/Creatinine Ratio 18.00 Glucose 83 Calculated Osmolality 287.7 Calcium 9.9 Magnesium 25-OH Vitamin D Total 16.4 PTH Intact 121.2 H 02/07/17 05:34 WBC RBC Hgb Hct MCV MCH MCHC RDW Plt Count MPV Neut % (Auto) Lymph % (Auto) [place] % (Auto) Eos % (Auto) Baso % (Auto) Neut # (Auto) Lymph # (Auto) [place] # (Auto) Eos # (Auto) Baso # (Auto) Immature Gran % Nucleated RBC % Immature Gran # Nucleated RBCs # Sodium 139 Potassium 3.7 Chloride 96 L Carbon Dioxide 36 H Anion Gap 10.7 BUN 52 H Creatinine 2.70 H GFR Calculation 23 BUN/Creatinine Ratio 19.00 Glucose 87 Calculated Osmolality 289.5 Calcium 10.0 Magnesium 1.9 25-OH Vitamin D Total PTH Intact
[2017-02-07] MEDS ORDERED: DIAZEPAM 5 MG TABLET ONE (08:15)
[2017-02-07] MEDS: hydrALAZINE 25 MG TABLET PO SCH ×2 (08:36→21:43)
[2017-02-07] MEDS: METOCLOPRAMIDE 5 MG TABLET PO SCH ×3 (08:37→15:52)
[2017-02-07] MEDS: ALLOPURINOL 300 MG TABLET PO SCH (08:38)
[2017-02-07] MEDS: CARVEDILOL 3.125 MG TABLET PO SCH ×2 (08:38→21:42)
[2017-02-07] MEDS: LEVOFLOXACIN 250 MG TABLET PO SCH (08:38)
[2017-02-07] MEDS: POTASSIUM CHLORIDE 20 MEQ TABLET PO SCH ×2 (08:38→21:42)
--- NOTE | 2017-02-07 08:38 | Nephrology Progress Note ---
Nephrology - PN: Subj Interval history: PT states breathing well. Denies SOB. No wheezes on exam. Creatinine 2.7 for eGFR 23cc/min, CKD 4. Ca 10 with inappropriately elevated PTH over 100, c/w primary hyperparathyroidism. Exam (PN)-Nephrology - Vital Signs Vital signs: Period Temp Pulse Resp BP Sys/Marie Pulse Ox Last 24 Hr 96.2 F-99.3 F 70-89 16-20 93-126/44-70 90-99 - General Appearance General appearance: well-developed, obese EENT: ATNC, PERRL, mucous membranes dry, hearing intact, vision intact Neck: no JVD, no thyromegaly Respiratory: no kyphosis, no scoliosis, clear Cardiology: no murmurs, no rub Gastrointestinal: normoactive bowel sounds, no tenderness, no guarding Integumentary: no rash, warm and dry Neurologic: no focal deficit, no asterixis, alert and oriented x3 Musculoskeletal: no deformities, no erythema Psychiatric: mood/affect appropriate, cooperative - Lab 02/07/17 05:34 02/07/17 05:34 Most recent lab results Calcium 9.9 MG/DL (8.5-10.1) 02/07/17 05:34 Magnesium 1.9 MG/DL (1.8-2.4) 02/07/17 05:34 Assessment and Plan (1) CKD (chronic kidney disease) stage 4, GFR 15-29 ml/min Problem details: CKD stage 4, eGFR 23cc/min. No indication for renal replacement therapy at this time. Status: Acute Assessment and plan: Stable for d/c. Renally dose all meds for eGFR. Avoid nephrotoxins to include NSAIDs, IV contrast. Current Visit: Yes (2) Metabolic alkalosis Problem details: stable to improved. Status: Chronic Current Visit: Yes (3) Hypercalcemia Problem details: Inappropriately elevated PTH for hypercalcemia. C/W primary hyperparathyroidism. Status: Chronic Current Visit: Yes
[2017-02-07] MEDS: FERROUS SULFATE 325 MG TABLET PO SCH ×2 (08:39→21:42)
[2017-02-07] MEDS: DOCUSATE SODIUM 100 MG CAPSULE PO SCH ×2 (08:39→21:42)
[2017-02-07] MEDS: PANTOPRAZOLE 40 MG TABLET PO SCH ×2 (08:39→21:42)
[2017-02-07] MEDS: APIXABAN 2.5 MG TABLET PO SCH ×2 (08:39→21:46)
[2017-02-07] MEDS: FLUTICASONE 50 MCG NASAL SPRAY 16 GM BOTTLE BOTH NARES SCH (08:40)
[2017-02-07] MEDS: SUCRALFATE 1 GM TABLET PO SCH ×3 (08:40→15:53)
[2017-02-07] MEDS: FUROSEMIDE 40 MG/4 ML VIAL IV SCH (08:41)
[2017-02-07] MEDS: ACETAMINOPHEN 325 MG TABLET PO PRN (17:23)
[2017-02-07] MEDS: MONTELUKAST 10 MG TABLET PO SCH (21:42)
[2017-02-08] MEDS: ALBUTEROL/IPRATROPIUM 3 ML NEB RESP TX SCH ×4 (01:17→19:11)
[2017-02-08 04:04] LABS: Basophils % 0.2 % (0.0-0.8); Eosinophils # 0.3 10*3/uL (0.0-0.87); Eosinophils % 5.9 % (0.00-10.9); Hematocrit 27.2 VOL% (35.7-47.0); Hemoglobin 8.7 GM/DL (12.0-16.0); Immature Granulocytes % 0.2 %; Immature Granulocytes Absolute 0.01 #; Lymphocytes # 1.4 10*3/uL (1.4-4.0); Mean Corpuscular Hemoglobin 30 PG (27-34); Mean Corpuscular Volume 92.2 FL (87-102); Mean Platelet Volume 12.6 FL (9.6-12.0); Monocytes # 0.6 10*3/uL (0.11-0.8); Monocytes % 13.6 % (1.7-12.7); Neutrophils % 48.1 % (38.7-73.9); Platelet Count 135 T/CUMM (130-400); Red Blood Count 2.95 MC/CUMM (3.8-5.5); Red Cell Distribution Width 15.8 % (9.3-17.3); White Blood Count 4.3 T/CUMM (4-12)
[2017-02-08 04:29] LABS: Calcium 9.7 MG/DL (8.5-10.1); Osmolality,Calculated 291.4 MOS/KG (273-304); Osmolality,Calculated 293.3 MOS/KG (273-304); Potassium 3.8 MMOL/L (3.5-5.1); Potassium 3.9 MMOL/L (3.5-5.1)
--- NOTE | 2017-02-08 09:39 | Cardiology Progress Note ---
Cardiology - PN: Subj Interval history: Cardiology note Denies chest pain or shortness of breath. Telemetry shows controlled atrial fib. O2 sat 96 on 2 L cannula. Blood pressure 120/74 in the left arm by me. Irregular rhythm with systolic ejection murmur as before Decreased breath sounds few rhonchi in the right base Abdomen soft benign Brawny leg edema Lab data today White count 4.3 hemoglobin 8.7 hematocrit 27.2 Sodium 141 potassium 3.8 chloride 98 CO2 38 BUN 22 creatinine down to 2.60 Calcium 10, magnesium 2, PTH level 121. Impression Cardiomyopathy EF 35% Chronic atrial fibrillation Chronic renal failure stage IV. 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 Exam (Progress Note) - Constitutional Vitals: Period Temp Pulse Resp BP Sys/Marie Pulse Ox Last 24 Hr 97.3 F-98 F 65-84 16-20 107-123/53-65 96-99 Result/EKG - Labs CBC & BMP: 02/08/17 02:54 02/08/17 02:54 Labs: Laboratory Results - last 24 hr 02/08/17 02/08/17 02/08/17 02:54 02:54 02:54 WBC 4.3 RBC 2.95 L Hgb 8.7 L Hct 27.2 L MCV 92.2 MCH 30 MCHC 32.0 RDW 15.8 Plt Count 135 MPV 12.6 H Neut % (Auto) 48.1 Lymph % (Auto) 32.0 [place] % (Auto) 13.6 H Eos % (Auto) 5.9 Baso % (Auto) 0.2 Neut # (Auto) 2.0 Lymph # (Auto) 1.4 [place] # (Auto) 0.6 Eos # (Auto) 0.3 Baso # (Auto) 0.0 Immature Gran % 0.2 Nucleated RBC % 0.0 Immature Gran # 0.01 Nucleated RBCs # 0.00 Sodium 140 141 Potassium 3.9 3.8 Chloride 98 98 Carbon Dioxide 35 H 35 H Anion Gap 10.9 11.8 BUN 53 H 52 H Creatinine 2.60 H 2.60 H GFR Calculation 24 24 BUN/Creatinine Ratio 20.00 20.00 Glucose 81 79 Calculated Osmolality 291.4 293.3 Calcium 9.7 10.0 Magnesium 2.0 Quality Measures - VTE Contraindication to Pharmacological VTE Prophylaxis: High Risk of Bleeding
--- NOTE | 2017-02-08 09:50 | Nephrology Progress Note ---
Nephrology - PN: Subj Interval history: Pt denies SOB, states breathing better every day. Denies pain. Creatinine stable to improved. Exam (PN)-Nephrology - Vital Signs Vital signs: Period Temp Pulse Resp BP Sys/Marie Pulse Ox Last 24 Hr 97.3 F-98 F 65-84 16-20 107-123/53-65 96-99 - General Appearance General appearance: well-developed, obese EENT: ATNC, PERRL, mucous membranes dry, hearing intact, vision intact Neck: no JVD, no thyromegaly Respiratory: no kyphosis, clear Cardiology: no murmurs, no rub, edema (less tense than on presentation) Gastrointestinal: normoactive bowel sounds, no tenderness Integumentary: no rash, warm and dry Neurologic: no focal deficit, no asterixis, alert and oriented x3 Musculoskeletal: no deformities, no erythema Psychiatric: mood/affect appropriate, cooperative - Lab 02/08/17 02:54 02/08/17 02:54 Most recent lab results Calcium 10.0 MG/DL (8.5-10.1) 02/08/17 02:54 Magnesium 2.0 MG/DL (1.8-2.4) 02/08/17 02:54 Assessment and Plan (1) CKD (chronic kidney disease) stage 4, GFR 15-29 ml/min Problem details: CKD stage 4, eGFR 23cc/min. No indication for renal replacement therapy at this time. Status: Acute Assessment and plan: Stable for d/c. Renally dose all meds for eGFR. Avoid nephrotoxins to include NSAIDs, IV contrast. Current Visit: Yes (2) Hyperparathyroidism, primary Status: Acute Assessment and plan: No indication for parathyroidectomy at this time. Medical management. Current Visit: Yes (3) Metabolic alkalosis Problem details: stable to improved. Status: Chronic Current Visit: Yes (4) Hypercalcemia Problem details: Inappropriately elevated PTH for hypercalcemia. C/W primary hyperparathyroidism. Status: Chronic Current Visit: Yes
[2017-02-08] MEDS: FERROUS SULFATE 325 MG TABLET PO SCH ×2 (10:05→21:49)
[2017-02-08] MEDS: ALLOPURINOL 300 MG TABLET PO SCH (10:05)
[2017-02-08] MEDS: APIXABAN 2.5 MG TABLET PO SCH ×2 (10:05→21:50)
[2017-02-08] MEDS: POTASSIUM CHLORIDE 20 MEQ TABLET PO SCH ×2 (10:05→21:49)
[2017-02-08] MEDS: METOCLOPRAMIDE 5 MG TABLET PO SCH ×3 (10:05→17:57)
[2017-02-08] MEDS: CARVEDILOL 3.125 MG TABLET PO SCH ×2 (10:06→21:50)
[2017-02-08] MEDS: SUCRALFATE 1 GM TABLET PO SCH ×3 (10:06→17:58)
[2017-02-08] MEDS: LEVOFLOXACIN 250 MG TABLET PO SCH (10:06)
[2017-02-08] MEDS: DOCUSATE SODIUM 100 MG CAPSULE PO SCH ×2 (10:06→21:49)
[2017-02-08] MEDS: hydrALAZINE 25 MG TABLET PO SCH ×2 (10:06→21:50)
[2017-02-08] MEDS: FUROSEMIDE 40 MG/4 ML VIAL IV SCH (10:07)
[2017-02-08] MEDS: FLUTICASONE 50 MCG NASAL SPRAY 16 GM BOTTLE BOTH NARES SCH (10:09)
[2017-02-08] MEDS: PANTOPRAZOLE 40 MG TABLET PO SCH ×2 (10:09→21:49)
[2017-02-08] MEDS: ACETAMINOPHEN 325 MG TABLET PO PRN ×2 (12:29→21:50)
[2017-02-08] MEDS: MONTELUKAST 10 MG TABLET PO SCH (21:50)
[2017-02-09] MEDS: ALBUTEROL/IPRATROPIUM 3 ML NEB RESP TX SCH ×3 (00:16→13:15)
[2017-02-09 04:54] LABS: Basophils % 0.3 % (0.0-0.8); Eosinophils # 0.2 10*3/uL (0.0-0.87); Eosinophils % 5.7 % (0.00-10.9); Hematocrit 27.5 VOL% (35.7-47.0); Hemoglobin 8.9 GM/DL (12.0-16.0); Immature Granulocytes % 0.3 %; Immature Granulocytes Absolute 0.01 #; Lymphocytes # 1.2 10*3/uL (1.4-4.0); Lymphocytes % 30.3 % (21.3-54.2); Mean Corpuscular HGB Conc 32.4 GM/DL (32-36); Mean Corpuscular Hemoglobin 30 PG (27-34); Mean Corpuscular Volume 93.5 FL (87-102); Mean Platelet Volume 11.7 FL (9.6-12.0); Monocytes # 0.5 10*3/uL (0.11-0.8); Monocytes % 12.3 % (1.7-12.7); Neutrophils % 51.1 % (38.7-73.9); Platelet Count 132 T/CUMM (130-400); Red Blood Count 2.94 MC/CUMM (3.8-5.5); Red Cell Distribution Width 15.7 % (9.3-17.3); White Blood Count 3.9 T/CUMM (4-12)
[2017-02-09 05:24] LABS: Calcium 9.7 MG/DL (8.5-10.1); Magnesium 1.9 MG/DL (1.8-2.4); Osmolality,Calculated 291.4 MOS/KG (273-304)
--- NOTE | 2017-02-09 07:33 | Cardiology Progress Note ---
Cardiology - PN: Subj Interval history: Cardiology note No shortness of breath. No temperature. Appetite good. Telemetry shows controlled atrial fib. O2 sat 97 on 2 L cannula. Blood pressure 112/70 Irregular rhythm with systolic murmur Decreased breath sounds but fairly clear Abdomen soft benign Brawny leg edema Lab data today Sodium 140 potassium 4.0 chloride 98 CO2 32 BUN 52 creatinine down to 2.50 White count 3.9 hemoglobin 8.9 hematocrit 27.5 Impression Cardiomyopathy EF 35%. Chronic atrial fibrillation Chronic renal failure stage IV. Creatinine clearance 23 mL's per minute Recent gastric ulcers Recent anemia with transfusion Chews tobacco but never smoked Remote history heavy alcohol abuse Primary hyperparathyroidism Plan Awaiting swing bed transfer [facility] in a.m. Exam (Progress Note) - Constitutional Vitals: Period Temp Pulse Resp BP Sys/Marie Pulse Ox Last 24 Hr 97 F-98 F 65-83 16-20 102-131/47-68 92-99 Result/EKG - Labs CBC & BMP: 02/09/17 04:11 02/09/17 04:11 Labs: Laboratory Results - last 24 hr 02/09/17 02/09/17 04:11 04:11 WBC 3.9 L RBC 2.94 L Hgb 8.9 L Hct 27.5 L MCV 93.5 MCH 30 MCHC 32.4 RDW 15.7 Plt Count 132 MPV 11.7 Neut % (Auto) 51.1 Lymph % (Auto) 30.3 [place] % (Auto) 12.3 Eos % (Auto) 5.7 Baso % (Auto) 0.3 Neut # (Auto) 2.0 Lymph # (Auto) 1.2 L [place] # (Auto) 0.5 Eos # (Auto) 0.2 Baso # (Auto) 0.0 Immature Gran % 0.3 Nucleated RBC % 0.0 Immature Gran # 0.01 Nucleated RBCs # 0.00 Sodium 140 Potassium 4.0 Chloride 98 Carbon Dioxide 32 Anion Gap 14.0 BUN 52 H Creatinine 2.50 H GFR Calculation 25 BUN/Creatinine Ratio 20.00 Glucose 87 Calculated Osmolality 291.4 Calcium 9.7 Magnesium 1.9 Quality Measures - VTE Contraindication to Pharmacological VTE Prophylaxis: High Risk of Bleeding
[2017-02-09] MEDS: FUROSEMIDE 40 MG/4 ML VIAL IV SCH (09:00)
[2017-02-09] MEDS: METOCLOPRAMIDE 5 MG TABLET PO SCH ×2 (09:04→12:22)
[2017-02-09] MEDS: CARVEDILOL 3.125 MG TABLET PO SCH (09:04)
[2017-02-09] MEDS: ALLOPURINOL 300 MG TABLET PO SCH (09:04)
[2017-02-09] MEDS: PANTOPRAZOLE 40 MG TABLET PO SCH (09:05)
[2017-02-09] MEDS: FERROUS SULFATE 325 MG TABLET PO SCH (09:05)
[2017-02-09] MEDS: SUCRALFATE 1 GM TABLET PO SCH ×2 (09:05→12:22)
[2017-02-09] MEDS: APIXABAN 2.5 MG TABLET PO SCH (09:05)
[2017-02-09] MEDS: POTASSIUM CHLORIDE 20 MEQ TABLET PO SCH (09:05)
[2017-02-09] MEDS: hydrALAZINE 25 MG TABLET PO SCH (09:05)
[2017-02-09] MEDS: FLUTICASONE 50 MCG NASAL SPRAY 16 GM BOTTLE BOTH NARES SCH (09:05)
[2017-02-09] MEDS: DOCUSATE SODIUM 100 MG CAPSULE PO SCH (09:05)
--- NOTE | 2017-02-09 09:28 | Nephrology Progress Note ---
Nephrology - PN: Subj Interval history: Pt states breathing better. Denies pain. Creatinine 2.5, improved. Exam (PN)-Nephrology - Vital Signs Vital signs: Period Temp Pulse Resp BP Sys/Marie Pulse Ox Last 24 Hr 97 F-98 F 71-83 16-20 102-131/47-68 92-99 - General Appearance General appearance: well-developed, obese, chronically ill EENT: ATNC, PERRL, hearing intact, vision intact Neck: no JVD, no thyromegaly Respiratory: no kyphosis, clear Cardiology: no murmurs, no rub Gastrointestinal: normoactive bowel sounds, no tenderness Integumentary: no rash, warm and dry Neurologic: no focal deficit, no asterixis, alert and oriented x3 Musculoskeletal: no deformities, no erythema Psychiatric: mood/affect appropriate, cooperative - Lab 02/09/17 04:11 02/09/17 04:11 Most recent lab results Calcium 9.7 MG/DL (8.5-10.1) 02/09/17 04:11 Magnesium 1.9 MG/DL (1.8-2.4) 02/09/17 04:11 Assessment and Plan (1) CKD (chronic kidney disease) stage 4, GFR 15-29 ml/min Problem details: CKD stage 4, eGFR 25cc/min. No indication for renal replacement therapy at this time. Status: Acute Assessment and plan: Stable for d/c. Renally dose all meds for eGFR. Avoid nephrotoxins to include NSAIDs, IV contrast. Current Visit: Yes (2) Hyperparathyroidism, primary Status: Acute Assessment and plan: No indication for parathyroidectomy at this time. Medical management. Current Visit: Yes (3) Metabolic alkalosis Problem details: stable to improved. Status: Chronic Current Visit: Yes (4) Hypercalcemia Problem details: Inappropriately elevated PTH for hypercalcemia. C/W primary hyperparathyroidism. Status: Chronic Current Visit: Yes
[2017-02-09] MEDS: LACTULOSE 20 GM/30 ML UDCUP PO PRN (11:00)
[2017-02-09] MEDS ORDERED: MAGNESIUM CITRATE 300 ML BOTTLE PO ONE (11:45)
--- NOTE | 2017-02-09 11:57 | Discharge Summary ---
Hospital Course - Hospital Course Hospital Course: Highway Engineer: Dr. Monaco PCP: Dr. Donovan Ms. Lynn is a 77-year-old -[place] female with history of persistent atrial fibrillation, cardiomyopathy, diastolic dysfunction, hypertension, prior ischemic stroke, chronic renal insufficiency, bilateral lower extremity venous insufficiency, gout, obesity, COPD, systolic CHF, GERD. Risk factors are significant for: Hypertension, obesity, sedentary lifestyle. She was previously admitted to the hospital on 01/15/17 with anticipation of renal prophylactic saline gently before LHC on 01/16/17 but was found to be profoundly anemic. Her cath was cancelled and she was found to have multiple antral gastric ulcers and a hiatal hernia. She returned to Dr. Monaco's clinic for follow up on 01/26/17 with dyspnea and edema. She reported 2 pillow orthopnea and difficulty moving her legs due to the heaviness from her edema. She was admitted to the hospital from clinic for diuresis and further workup and treatment of acutely decompensated heart failure and evaluation of worsening anemia with epistaxis. LHC has been postponed on numerous occasions. She is not a candidate for intervention at this time until her ulcers have time to heal. It is probably best that we continue treating her medically at this time. She was started on low dose Eliquis for stroke prevention and has tolerated this well. Her signs and symptoms have improved; however, she is still significantly deconditioned and it is felt she would benefit from swingbed placement prior to going home. She has been accepted to swingbed at [facility] under Dr. Landa's care. At this time, she is felt to have met maximum hospital benefit and will be discharged to [facility] in stable condition. She will need to follow up with Dr. Monaco in 2 weeks. Cardiology addendum. No pain. Creatinine down to 2.5 on discharge. Brawny leg edema persists. Receiving proton pump inhibitor for antral gastric ulcers Blood pressure 126/80 O2 sat 95% on 2 L Decreased breath sounds but clear. Irregular rhythm soft systolic murmur as before Plan Patient transferred to swing bed at [facility] Office follow-up with Dr. Laguna in 2-3 weeks Eliquis 2.5 g twice daily restarted - Time spent with patient Time with patient DS: Greater than 30 minutes (due to plan, arrangement of swingbed placement, and documentation) Diagnosis - Discharge Diagnosis (1) Combined systolic and diastolic congestive heart failure Status: Chronic (2) Cardiomyopathy Status: Chronic (3) Atrial fibrillation Status: Chronic (4) Chronic renal insufficiency Status: Chronic (5) Anemia Status: Chronic (6) Acute bronchitis Status: Resolved (7) GERD (gastroesophageal reflux disease) Status: Chronic (8) Obesity Status: Chronic Specialty Discharge - Follow Up or Referrals Follow up with: Beth Monaco DO [Physician] - 03/01/17 9:40 am (Follow up with Dr. Monaco in 2- 3 weeks. ) Discharge Plan - Discharge Data Disposition: Swing Bed, Hos Based, [place] Condition at Discharge: Stable Discharge Diet: heart healthy Activity: resume usual activities as tolerated Hygiene: no restrictions Weight Bearing at Discharge: full weight bearing Contact your physician if you experience:: fever over 101, Difficulty voiding, Redness or swelling, Nausea/Vomiting, Shortness of breath, Bleeding, pain uncontrolled by pain medications - Discharge Medications New Apixaban [Eliquis] 2.5 mg PO BID #60 tablet Carvedilol [Coreg] 3.125 mg PO BID #60 tablet Docusate Sodium Cap [Colace Cap] 100 mg PO BID capsule Metoclopramide Tab [Reglan Tab] 5 mg PO TIDAC tablet Sucralfate Tab [Carafate Tab] 1 gm PO TIDAC tablet hydrALAZINE TAB [Apresoline Tab] 25 mg PO BID #60 tablet Fluticasone 50 Mcg Nasal [place] [Flonase Nasal [place]] 2 spray BOTH NARES DAILY spray Continue Albuterol Sulfate [Proair HFA] 2 puff INH Q6H PRN PRN Reason: Shortness Of Breath/Wheezing Potassium Chloride 20 meq PO BID Montelukast Tab [Singulair Tab] 10 mg PO BEDTIME Ferrous Sulfate [Iron] 325 mg PO BID Allopurinol 300 mg PO DAILY Pantoprazole Tab [Protonix Tab] 40 mg PO DAILY #30 tablet Furosemide Tab [Lasix Tab] 40 mg PO BID #0 Albuterol Sulfate 2.5 mg IH Q6HR Discontinued hydrALAZINE TAB [Apresoline Tab] 50 mg PO BID Lisinopril 20 mg PO DAILY Aspirin [Aspirin EC] 81 mg PO DAILY Bisoprol/Hydrochlorothiazide [Bisoprolol-Hctz 5-6.25 mg Tab] 0.5 tablet PO DAILY #0 Metoclopramide HCl 10 mg PO BID Citric Acid/Sodium Citrate [Bicitra] 30 ml PO TID #1 bottle - Follow Up or Referral Follow Up: Beth Monaco DO [Physician] - 03/01/17 9:40 am (Follow up with Dr. Monaco in 2- 3 weeks. ) - Forms/Instructions Exam - Constitutional Vitals: Period Temp Pulse Resp BP Sys/Marie Pulse Ox Last 24 Hr 97 F-98.4 F 71-83 16-20 102-131/47-68 97-100 Exam: General: Present: Appears Well, No Apparent Distress. Pleasant and cooperative. Appears comfortable. HEENT: Present: PERRL, Normocephaly, atraumatic. Mucus Membranes Moist. No jaundice noted. Conjunctiva moist and clear, sclerae anicteric Neck: Present: Supple Neck, Midline Trachea, No Masses, No Bruit, No tenderness Cardiac: Present: Irregular Rate and Rhythm, Systolic Murmur, no chest wall tenderness Lungs: Present: decreased breath sounds but, otherwise clear to auscultation bilaterally . Neuro: Present: Awake, alert, and oriented x3. Moves all extremities well without hemiparesis or paralysis. Grossly Intact. Absent: Resting Tremor, Essential Tremor Abdomen: Present: Soft, Active Bowel Sounds, No Masses, Non-Tender, nondistended. No abdominal bruit or thrill noted. Skin: Present: Clear. Absent: Rash, No skin breakdown. Back: Normal inspection, no vertebral tenderness. Musculoskeletal: Present: No Fluid Collection, No Pain Extremities: Present: Normal Gait, No Clubbing, No Cyanosis, Upper Extr. Pulses 2+, Lower Extr. Pulses 2+, trace pitting edema to BLE. Capillary refill less than 3 seconds. Discharge Results Labs on day of discharge: Labs from last 24 hours 02/09/17 02/09/17 04:11 04:11 WBC 3.9 L RBC 2.94 L Hgb 8.9 L Hct 27.5 L MCV 93.5 MCH 30 MCHC 32.4 RDW 15.7 Plt Count 132 MPV 11.7 Neut % (Auto) 51.1 Lymph % (Auto) 30.3 [place] % (Auto) 12.3 Eos % (Auto) 5.7 Baso % (Auto) 0.3 Neut # (Auto) 2.0 Lymph # (Auto) 1.2 L [place] # (Auto) 0.5 Eos # (Auto) 0.2 Baso # (Auto) 0.0 Immature Gran % 0.3 Nucleated RBC % 0.0 Immature Gran # 0.01 Nucleated RBCs # 0.00 Sodium 140 Potassium 4.0 Chloride 98 Carbon Dioxide 32 Anion Gap 14.0 BUN 52 H Creatinine 2.50 H GFR Calculation 25 BUN/Creatinine Ratio 20.00 Glucose 87 Calculated Osmolality 291.4 Calcium 9.7 Magnesium 1.9 - Imaging and Cardiology Procedure: Ultrasound: report reviewed by me (Impression: Medical renal disease in the kidneys without obstructive uropathy bilaterally) DS: Provider Date of admission: 01/26/17 15:19 Primary care physician: . No PCP Attending physician on admission: Maximino Worley Consults: 01/26/17 16:23 Consult to Pastoral Services [CONS] Routine Comment: Pastoral Screen: Request Dermatologist And Dermatopathologist Visit 01/27/17 11:45 Consult to Physician [CONS] Routine Comment: renal insufficiency, CHF Consulting Provider: Consult to Specialist Group: Nephrology When should Consulting Provider be notified: Now 01/27/17 16:34 Consult to Case Mgmt/Social Srvs [CONS] Routine Reason for Case Mgmt/Social Srvs: Home Health 01/29/17 17:06 Consult to Physician [CONS] Routine Comment: occult + stools Consulting Provider: Consult to Specialist Group: Gastroenterology When should Consulting Provider be notified: In am 01/30/17 10:52 Consult to Physician [CONS] Routine Comment: Any further recs for recent bleed??? Consulting Provider: Jozef Morrell 01/30/17 10:55 Consult to Physician [CONS] Routine Comment: CRI - medical. any recs??? Consulting Provider: Ken Nicole Person Notified: Leidy Date Notified: 01/30/17 Time Notified: 08:10 02/01/17 08:56 Consult to Physician [CONS] Routine Comment: for expiratory wheezes Consulting Provider: Consult to Specialist Group: Pulmonology When should Consulting Provider be notified: Now 02/05/17 17:47 Consult to Case Mgmt/Social Srvs [CONS] Routine Reason for Case Mgmt/Social Srvs: Discharge Planning Consult Comment: pt is interested in swing bed on D/C 02/06/17 06:39 Consult to Occupational Therapy [CONS] Routine Reason for Occupational Therapy: Evaluate and Treat Consult to Physical Therapy [CONS] Routine Reason for Physical Therapy: Evaluate and Treat Start Therapy: Today Discharging clinician: DAVID Adams Expected date of discharge: 02/09/17
[2017-02-09 15:57] VITALS: BP 108/56
== END 2017-02-09 14:15 | disposition swing bed (61) | DRG 291 ==
LOC: N.TELES 15:19
PROVIDERS: ADMIT Internal Medicine Cardiovascular Disease; ATTEND Internal Medicine Cardiovascular Disease

== ENCOUNTER 2017-03-08 00:03 | Observation (INO) ==
[2017-03-08] MEDS ORDERED: ALUM/MAG/SIMETH/LIDO VISC 1:1 30 ML BOTTLE PO STA (00:20)
[2017-03-08] MEDS ORDERED: ALUM/MAG/SIMETH/LIDO VISC 1:1 30 ML BOTTLE PO ONE (00:24)
--- NOTE | 2017-03-08 00:57 | Emergency Department Note ---
Ishmale Ugarte Hilary, am scribing for, and in the presence of, Ken Alvarenga MD 00:24. Lyle Ugarte Robert M, MD, personally performed the services described in this documentation, ascribed by Consuelo Quiñones in my presence, and it is both accurate and complete . Arrival - Arrival Chief Complaint: Chest Pain Stated Complaint: cp ED Nursing Triage Note: TRANSFER FOR CHEST PAIN FROM [facility]. Mode of Arrival: Stretcher Limitations: No Limitations Source: Patient, RN Notes Reviewed - History of Present Illness HPI Narrative: Pt is a 77 y/o female brought to the ED via EMS as a transfer from [place] with c/o chest pain which onset earlier today. Pt was given Nitro at [place] but she still has a little bit of chest pain. Pt has a PMHx of AFIB, HTN, CHF, CVA, Cardiomyopathy, COPD and renal insufficency. No other complaints or problems stated in the ED. Onset (ago): hour(s) Consistency: constant Severity: mild Severity scale (1-10): 1 Date of Last Menstrual Period: HYST Allergies/Adverse Reactions: Allergies Allergy/AdvReac Type Severity Reaction Status Date / Time doxycycline Allergy Severe RASH Verified 01/17/17 14:13 Home Medications: Home Medications Medication Instructions Recorded Confirmed Type Albuterol Sulfate [Albuterol Neb] 2.5 mg IH Q6HR 01/11/17 02/09/17 History Albuterol Sulfate [Proair HFA] 2 puff INH Q6H PRN 01/11/17 02/09/17 History Allopurinol 300 mg PO DAILY 01/11/17 02/09/17 History Ferrous Sulfate [Iron] 325 mg PO BID 01/11/17 02/09/17 History Montelukast Tab [Singulair Tab] 10 mg PO BEDTIME 01/11/17 02/09/17 History Potassium Chloride 20 meq PO BID 01/11/17 02/09/17 History Furosemide Tab [Lasix Tab] 40 mg PO BID #0 01/18/17 02/09/17 Rx Pantoprazole Tab [Protonix Tab] 40 mg PO DAILY #30 tablet 01/18/17 02/09/17 Rx Apixaban [Eliquis] 2.5 mg PO BID #60 tablet 02/09/17 02/09/17 Rx Carvedilol [Coreg] 3.125 mg PO BID #60 tablet 02/09/17 02/09/17 Rx Docusate Sodium Cap [Colace Cap] 100 mg PO BID capsule 02/09/17 02/09/17 Rx Fluticasone 50 Mcg Nasal [place] 2 spray BOTH NARES DAILY spray 02/09/17 Rx [Flonase Nasal [place]] Metoclopramide Tab [Reglan Tab] 5 mg PO TIDAC tablet 02/09/17 02/09/17 Rx Sucralfate Tab [Carafate Tab] 1 gm PO TIDAC tablet 02/09/17 02/09/17 Rx hydrALAZINE TAB [Apresoline Tab] 25 mg PO BID #60 tablet 02/09/17 02/09/17 Rx Review of System - Review of System 12 point system: reviewed and no additional remarkable complaints except as stated - Review of System Constitutional: Absent: fever Cardiovascular: Present: chest pain Medical,Surgical,& Family Hx - Medical History Cardio: History of: Cardiac Dysrhythmia (AFIB), CHF, Hypertension, Cardiovascular Problems (DIASTOLIC DYSFUNCTION, CARDIOMYOPATHY,RBBB,) Neurology: History of: Cerebrovascular Accident No history of: Seizures Respiratory: History of: COPD Renal: History of: Renal Problems (RENAL INSUFFICIENCY) Gastrointestinal: History of: GERD Musculoskeletal: History of: Osteoporosis, Musculoskeletal Problems (SPINAL STENOSIS) Other: History of: Miscellaneous Medical Problems (GOUT, VENOUS INSUFFICIENCY OF BOTH LOWER EXTREMITIES) - Family History Family History: Reports;: Family Diabetes, Family Heart Disease, Family Hypertension - Social History Smoking Status: Never smoker Frequency of Alcohol Use: None Type of Drug Use: None Exam Vital Signs: Vital Signs Temperature 97.7 F 03/08/17 00:04 Pulse Rate 74 03/08/17 00:04 Respiratory Rate 18 03/08/17 00:51 Blood Pressure 123/62 03/08/17 00:04 O2 Sat by Pulse Oximetry 97 03/08/17 00:04 - General General appearance: alert, in no apparent distress - Head Head exam: Present: atraumatic, normocephalic - Eye Eye exam: Present: normal appearance, PERRL, EOMI - ENT ENT exam: Present: mucous membranes moist, TM's normal bilaterally. Absent: mucous membranes dry - Neck Neck exam: Present: full ROM, trachea midline. Absent: tenderness - Chest Chest inspection: Present: symmetric chest wall rise. Absent: tenderness - Respiratory Respiratory exam: Present: normal lung sounds bilaterally. Absent: respiratory distress - Cardiovascular Cardiovascular exam: Present: regular rate, normal rhythm, normal heart sounds. Absent: murmur, rubs, gallop - Abdominal Exam Abdominal exam: Present: soft, normal bowel sounds. Absent: distention, tenderness - Extremities Exam Extremities exam: Present: full ROM, pedal edema (bilateral lower extremity edema). Absent: tenderness - Back Exam Back exam: Present: full ROM. Absent: tenderness - Neurological Exam Neurological exam: Present: alert, oriented X3, CN II-XII intact. Absent: motor sensory deficit - Psychiatric Psychiatric exam: Present: normal affect, normal mood - Skin Skin exam: Present: warm, dry, intact, normal color. Absent: rash Course - Consultations Consultation #1: Dr. Beth Laguna would admit the patient to obs. Time: 01:19 Results - Labs Lab Results: I have reviewed the patients labs Labs: Total Creatine Kinase 67 U/L (26-192) 03/08/17 00:21 CK-MB (CK-2) < 1.0 NG/ML (0.5-3.6) 03/08/17 00:21 Troponin I 0.048 NG/ML (0.00-0.045) H 03/08/17 00:21 Disposition Clinical Impression: Unstable angina pectoris, COPD (chronic obstructive pulmonary disease), GERD ( gastroesophageal reflux disease), Mitral regurgitation, Chronic renal insufficiency, Cardiomyopathy Case discussed with: patient, patient's family Disposition: Still a Patient Condition: Stable Time of Disposition: 01:20
[2017-03-08 01:10] LABS: Troponin I Only 0.048 NG/ML (0.00-0.045)
[2017-03-08] MEDS ORDERED: MAGNESIUM SULF RIDER 4 GM in PREMIX 1 EACH IV PRN (01:20)
[2017-03-08] MEDS ORDERED: diphenhydrAMINE CAP 25 MG CAPSULE PO PRN (01:20)
[2017-03-08] MEDS ORDERED: MAGNESIUM SULF RIDER 2 GM in PREMIX 1 EACH IV PRN (01:20)
[2017-03-08] MEDS ORDERED: GLUCAGON 1 MG VIAL IM PRN (01:20)
[2017-03-08] MEDS ORDERED: POTASSIUM CHLORIDE 20 MEQ TABLET PO PRN (01:20)
[2017-03-08] MEDS ORDERED: DEXTROSE 50% 25 GM/50 ML VIAL IV PRN (01:20)
[2017-03-08] MEDS ORDERED: guaiFENesin/DM ER 600-30 MG TABLET PO PRN (01:20)
[2017-03-08] MEDS ORDERED: ONDANSETRON 4 MG/2 ML VIAL IV PRN (01:20)
--- NOTE | 2017-03-08 07:48 | EKG Report ---
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
[2017-03-08] MEDS ORDERED: diphenhydrAMINE CAP 25 MG CAPSULE PO ONE (09:12)
[2017-03-08] MEDS ORDERED: DIAZEPAM 5 MG TABLET PO ONE (09:12)
[2017-03-08] MEDS: PANTOPRAZOLE 40 MG TABLET PO SCH (09:17)
[2017-03-08] MEDS: INSULIN LISPRO 100 UNIT/ML SUBCUT SCH ×4 (09:17→20:51)
--- NOTE | 2017-03-08 09:19 | Cardiology History & Physical ---
Connor Ugarte Vanessa RN, am scribing for, and in the presence of, Beth Kenyon DO 09 :17. Assessment and Plan - Time spent with patient Time spent with patient: Greater than 30 minutes (Due to assessment, planning, documentation, and medication review) (1) Chest pain Status: Acute Assessment and plan: This appears to me to be noncardiac in nature. Troponin is negative. Current Visit: Yes (2) Mitral regurgitation Status: Acute Current Visit: Yes Qualifiers: Cardiac valve disease etiology: nonrheumatic Qualified Code(s): I34.0 - Nonrheumatic mitral (valve) insufficiency (3) CKD (chronic kidney disease) stage 3, GFR 30-59 ml/min Status: Chronic Assessment and plan: Renal insufficiency appears to be stable at this time. Monitor renal function closely. Avoid nephrotoxic agents. This is why the patient is not on SONAL or ARB Current Visit: Yes (4) COPD (chronic obstructive pulmonary disease) Status: Chronic Assessment and plan: Appears to be stable at this time. Current Visit: Yes (5) GERD (gastroesophageal reflux disease) Status: Chronic Assessment and plan: Continue PPI. Current Visit: Yes (6) Anemia Status: Chronic Assessment and plan: Stable anemia at this time. Monitor H&H carefully and for overt S/S bleeding. This is due to heart failure and renal failure this is multifactorial anemia. Current Visit: No Qualifiers: Chronic kidney disease stage: stage 3 (moderate) (7) Atrial fibrillation Status: Chronic Assessment and plan: Persistent atrial fibrillation with well-controlled ventricular response. Continue low-dose beta-merissa. Anticoagulated with Eliquis for stroke prevention. Current Visit: No Qualifiers: Atrial fibrillation type: persistent Qualified Code(s): I48.1 - Persistent atrial fibrillation (8) Chronic anticoagulation Status: Chronic Assessment and plan: She is anticoagulated with low-dose Eliquis for stroke prevention. Hold in anticipation of invasive procedures Current Visit: No (9) Hypertension Status: Chronic Assessment and plan: Blood pressures are well controlled at this time, and she is actually borderline hypotensive. Monitor carefully and adjust medication regimen as indicated. Current Visit: Yes (10) Obesity Status: Chronic Assessment and plan: Dietary counseling and caloric intake restriction. Current Visit: No History of Present Illness Chief complaint: Chest pain History of present illness: PRIMARY REPRODUCER: DR. KENYON Ms. Lynn is a 77 year old black female with risk factor significant for: hypertension, obesity, sedentary last. Patient has never been a smoker. Past medical history includes persistent atrial fibrillation, ischemic CVA, chronic kidney disease stage III, acute on chronic systolic and diastolic congestive heart failure with EF 35%, venous insufficiency of bilateral lower extremities, and COPD. Patient required hospitalization in January 2017 for anemia and GI bleeding. EGD during January hospital admission revealed small hiatal hernia and multiple gastric antral ulcers suspected to be a source of bleeding. She was readmitted to the hospital near the end of January 2017 for decompensated heart failure. Patient was diuresed, medications were adjusted, and she was discharged to swing bed on February 09 for further therapy as she was still significantly deconditioned. Patient has been scheduled to undergo left heart catheterization several times but this has had to be canceled for various reasons including anemia, epistaxis, and nonhealing bilateral lower extremity ulcers. Patient has been treated medically in the meantime. She is chronically anticoagulated with Eliquis for stroke prevention and has done well with this. Ms. Lynn was admitted to [facility] overnight on March 07 and transferred from [facility] in [place] for further evaluation of chest pain with onset earlier in the morning of March 07. Patient had received sublingual nitroglycerin 3 while at [facility] with some relief of her chest pain but not complete. EKG negative for acute ischemic finding. Cardiac biomarkers with trivial troponin 0.048, normal CPK. Patient seen and examined. She is resting comfortably in her room this morning , and is in no acute respiratory distress. Ms. Lynn reports yesterday morning she noticed that she was having midsternal chest "pressure," nonradiating, with no associated dyspnea, diaphoresis, nausea, vomiting, or other. Rates the discomfort as a "3-4" and reports it lasted approximately 5 minutes at a time, waxing and waning throughout the day, and she is unable to identify any aggravating or alleviating factors. She thinks that it may have been exacerbated after she was "lifting herself up off the couch." Reports that she has been trying to increase her physical activity since discharge from swing bed. Reports using 3-4 pillows to sleep at night, and she has not had to increase this amount recently. Denies PND, palpitations. She does have 3+ pitting lower extremity edema, but patient report this is actually improved recently since her medications have been adjusted. No recent cough, fever, chills. Noted to be borderline hypotensive with SBP ranging 85 -105 mmHg. Pulse rate is in the 80s and regular by exam. Denies abdominal pain, hemoptysis , hematochezia. Reports she feels she may have had some melena recently. H&H 8.4/26.7. Electrolytes are within acceptable range. Creatinine is 1.85 with a GFR of 37. The patient has been in need of a heart cath for some time but her renal insufficiency has prohibited this. It appears to be stabilized. She just went home from the hospital approximately 13 days ago. She has got significant anemia. This discomfort was not apparently relieved with these nitroglycerin to any significance but she needs a heart cath for her cardiomyopathy. She is at high risk for complications particularly renal failure I discussed with her. I will hold her Eliquis and anticipate left heart cath tomorrow morning if her creatinine does not rise significantly. She appears to me to be in her chronic state of advanced [place] [employer] class III to IV heart failure. This is all complicated by her renal insufficiency her morbid obesity and her anemia. All her labs are pending today. The combination of these 3 disease states make her severely dyspneic. Her creatinine at [place] was 1.79 this is down from her baseline which runs about 1.85 this appears stable. I discussed with the patient all risk benefits and options and she is willing to proceed I will schedule for tomorrow morning. Home Medications Medication Instructions Recorded Confirmed Type Albuterol Sulfate [Albuterol Neb] 2.5 mg IH Q6HR 01/11/17 03/08/17 History Albuterol Sulfate [Proair HFA] 2 puff INH Q6H PRN 01/11/17 03/08/17 History Allopurinol 300 mg PO DAILY 01/11/17 03/08/17 History Ferrous Sulfate [Iron] 325 mg PO BID 01/11/17 03/08/17 History Montelukast Tab [Singulair Tab] 10 mg PO BEDTIME 01/11/17 03/08/17 History Potassium Chloride 20 meq PO BID 01/11/17 03/08/17 History Furosemide Tab [Lasix Tab] 40 mg PO BID #0 01/18/17 03/08/17 Rx Pantoprazole Tab [Protonix Tab] 40 mg PO DAILY #30 tablet 01/18/17 03/08/17 Rx Apixaban [Eliquis] 2.5 mg PO BID #60 tablet 02/09/17 03/08/17 Rx Carvedilol [Coreg] 3.125 mg PO BID #60 tablet 02/09/17 03/08/17 Rx Docusate Sodium Cap [Colace Cap] 100 mg PO BID capsule 02/09/17 03/08/17 Rx Fluticasone 50 Mcg Nasal [place] 2 spray BOTH NARES DAILY spray 02/09/17 Rx [Flonase Nasal [place]] Metoclopramide Tab [Reglan Tab] 5 mg PO TIDAC tablet 02/09/17 03/08/17 Rx Sucralfate Tab [Carafate Tab] 1 gm PO TIDAC tablet 02/09/17 03/08/17 Rx hydrALAZINE TAB [Apresoline Tab] 25 mg PO BID #60 tablet 02/09/17 03/08/17 Rx Allergies Allergy/AdvReac Type Severity Reaction Status Date / Time doxycycline Allergy Severe RASH Verified 01/17/17 14:13 - Constitutional Constitutional: Present: as per HPI - EENT Eyes: Present: as per HPI Nose, mouth and throat: Present: as per HPI - Cardiovascular Cardiovascular: Present: as per HPI - Respiratory Respiratory: Present: as per HPI - Gastrointestinal Gastrointestinal: Present: as per HPI - Genitourinary Genitourinary: Present: as per HPI - Musculoskeletal Musculoskeletal: Present: as per HPI - Neurological Neurological: Present: as per HPI - Psychiatric Psychiatric: Present: as per HPI - Endocrine Endocrine: Present: as per HPI - Hematologic/Lymphatic Hematologic/Lymphatic: Present: as per HPI Medical,Surgical,& Family Hx - Medical History Cardio: History of: Cardiac Dysrhythmia (AFIB), CHF, Hypertension, Cardiovascular Problems (DIASTOLIC DYSFUNCTION, CARDIOMYOPATHY,RBBB,) No history of: Pacemaker Psychological: History of: Anxiety Disorders Neurology: History of: Cerebrovascular Accident (1993) No history of: Seizures HEENT: History of: Eye Problem (Cataract), Dental Problems (Endentulous; unable to wear dentures at most times) Endocrine: History of: Thyroid Disorder (Hyperparathyroid) No history of: Diabetes Mellitus (IDDM) Rheumatology: History of;: Gout, Rheumatoid Arthritis Respiratory: History of: COPD Renal: History of: Renal Problems (CKD) Gastrointestinal: History of: GERD, Gastrointestinal Bleed Musculoskeletal: History of: Osteoporosis, Musculoskeletal Problems (SPINAL STENOSIS) Hematology: History of: Anemia No history of: Blood Transfusion Reaction Other: History of: Miscellaneous Medical Problems (GOUT, VENOUS INSUFFICIENCY OF BOTH LOWER EXTREMITIES) - Surgical History Cardiac Surgeries: Sugical HX of: Cardiac Catheterization Thoracic Surgeries: Patient denies;: Organ Transplant Neurologic Surgeries: Patient denies: Neurologic Surgery Abdominal Surgeries: Surgical HX of: Colonoscopy (January 2017), EGD (January 2017) Reproductive Surgeries: Surgical HX of;: Breast Surgery (Cyst removed from right breast), Hysterectomy - Family History Family History: Reports;: Family Cancer (Mother), Family Diabetes (Father), Family Heart Disease (Mother), Family Hypertension, Family Psychiatric Problems (Mother and father) - Social History Smoking Status: Never smoker Frequency of Alcohol Use: None Type of Drug Use: None Cardiology Physical Exam - Constitutional Vitals: Vital Signs Temp Pulse Resp BP Pulse Ox 96.7 F L 96 H 20 88/52 96 03/08/17 04:00 03/08/17 04:00 03/08/17 07:21 03/08/17 04:00 03/08/17 04:00 Intake and Output 03/07/17 03/08/17 03/08/17 22:59 06:59 14:59 Intake Total 200 / 200 Balance 200 / 200 Intake: Oral 200 / 200 Other: Voiding Method Toilet # Voids 2 # Bowel Movements 0 Weight 238 lb General appearance: no acute distress, morbidly obese - Head Head exam: Present: normal inspection. Absent: normocephalic, atraumatic, abrasion, contusion, hematoma, laceration - Eye Eye exam: Present: EOMI. Absent: conjunctival injection, periorbital swelling, scleral icterus Pupils: Present: LYNDSEY. Absent: dilated, fixed - ENT ENT exam: Present: normal exam - Neck Neck exam: Present: normal inspection. Absent: tenderness - Respiratory Respiratory exam: Present: clear to auscultation bilaterally. Absent: accessory muscle use, rales, rhonchi, stridor, wheezes - Cardiovascular Cardiovascular exam: Present: irregular rhythm. Absent: diastolic murmur, JVD, systolic murmur, tachycardia - GI/Abdominal GI/Abdominal exam: Present: normal bowel sounds, soft. Absent: ascites, distended, firm, guarding - Extremities Exam Extremities exam: Present: normal capillary refill, edema (3+ bilateral lower extremities), other (MATY hose in place). Absent: calf tenderness - Back Exam Back exam: Present: normal inspection - Neurological Exam Neurological exam: Present: alert, oriented X3 - Psychiatric Psychiatric exam: Present: normal affect, normal mood. Absent: agitated, anxious, depressed - Skin Skin exam: Present: warm, dry, other. Absent: cyanosis, diaphoretic, pallor, petechiae, rash Result/EKG - Labs Lab Results: I have reviewed the past 24 hour labs Labs: Laboratory Results - last 24 hr 03/08/17 00:21 Total Creatine Kinase 67 CK-MB (CK-2) < 1.0 Troponin I 0.048 H - EKG EKG results: interpreted by me, no acute changes EKG shows: atrial fibrillation IJacinda Shea, DO, personally performed the services described in this documentation, ascribed by Zeynep Ryan RN in my presence, and it is both accurate and complete 919 .
[2017-03-08 09:33] LABS: Basophils % 0.2 % (0.0-0.8); Eosinophils # 0.1 10*3/uL (0.0-0.87); Hematocrit 23.8 VOL% (35.7-47.0); Hemoglobin 7.8 GM/DL (12.0-16.0); Immature Granulocytes % 0.2 %; Immature Granulocytes Absolute 0.01 #; Lymphocytes # 1.2 10*3/uL (1.4-4.0); Lymphocytes % 26.1 % (21.3-54.2); Mean Corpuscular HGB Conc 32.8 GM/DL (32-36); Mean Corpuscular Hemoglobin 31 PG (27-34); Mean Corpuscular Volume 93.7 FL (87-102); Monocytes # 0.6 10*3/uL (0.11-0.8); Monocytes % 12.1 % (1.7-12.7); Neutrophils # 2.7 10*3/uL (1.4-7.4); Neutrophils % 58.4 % (38.7-73.9); Platelet Count 143 T/CUMM (130-400); Red Blood Count 2.54 MC/CUMM (3.8-5.5); Red Cell Distribution Width 16.2 % (9.3-17.3); White Blood Count 4.6 T/CUMM (4-12)
[2017-03-08 10:08] LABS: Alanine Aminotransferase 32 U/L (13-56); Albumin 3.4 G/DL (3.4-5.0); Alkaline Phosphatase 191 U/L (45-117); Aspartate Amino Transferase 28 U/L (0-37); Blood Urea Nitrogen 64 MG/DL (7-18); Calcium 9.7 MG/DL (8.5-10.1); Glucose 72 MG/DL (74-106); Osmolality,Calculated 297.3 MOS/KG (273-304); Sodium 141 MMOL/L (136-145); Total Protein 6.4 G/DL (6.4-8.3); Troponin I Only 0.038 NG/ML (0.00-0.045)
[2017-03-08] MEDS: SUCRALFATE 1 GM TABLET PO SCH ×2 (12:12→16:44)
[2017-03-08] MEDS: METOCLOPRAMIDE 5 MG TABLET PO SCH ×2 (12:12→16:44)
[2017-03-08] MEDS: ALBUTEROL 2.5 MG/3 ML NEB RESP TX SCH ×2 (13:19→19:32)
[2017-03-08 18:56] LABS: Troponin I Only 0.039 NG/ML (0.00-0.045)
[2017-03-08] MEDS: hydrALAZINE 25 MG TABLET PO SCH (20:42)
[2017-03-08] MEDS: FUROSEMIDE 80 MG TABLET PO SCH (20:42)
[2017-03-08] MEDS: CARVEDILOL 3.125 MG TABLET PO SCH (20:42)
[2017-03-08] MEDS: FERROUS SULFATE 325 MG TABLET PO SCH (20:42)
[2017-03-08] MEDS: DOCUSATE SODIUM 100 MG CAPSULE PO SCH (20:42)
[2017-03-08] MEDS: MONTELUKAST 10 MG TABLET PO SCH (20:43)
[2017-03-09] MEDS: ALBUTEROL 2.5 MG/3 ML NEB RESP TX SCH ×4 (00:17→19:17)
[2017-03-09] MEDS: SODIUM CHLORIDE 0.45% 1,000 ML IV SCH ×2 (02:59→20:22)
[2017-03-09 05:21] LABS: Basophils % 0.5 % (0.0-0.8); Eosinophils # 0.1 10*3/uL (0.0-0.87); Eosinophils % 3.2 % (0.00-10.9); Hematocrit 22.7 VOL% (35.7-47.0); Hemoglobin 7.3 GM/DL (12.0-16.0); Immature Granulocytes % 0.2 %; Immature Granulocytes Absolute 0.01 #; Lymphocytes # 1.1 10*3/uL (1.4-4.0); Lymphocytes % 26.8 % (21.3-54.2); Mean Corpuscular HGB Conc 32.2 GM/DL (32-36); Mean Corpuscular Hemoglobin 30 PG (27-34); Mean Corpuscular Volume 94.6 FL (87-102); Mean Platelet Volume 11.3 FL (9.6-12.0); Monocytes # 0.5 10*3/uL (0.11-0.8); Monocytes % 11.2 % (1.7-12.7); Neutrophils # 2.3 10*3/uL (1.4-7.4); Neutrophils % 58.1 % (38.7-73.9); Platelet Count 130 T/CUMM (130-400); Red Cell Distribution Width 16.3 % (9.3-17.3)
[2017-03-09 05:55] LABS: Calcium 9.3 MG/DL (8.5-10.1); Osmolality,Calculated 297.4 MOS/KG (273-304); Potassium 3.9 MMOL/L (3.5-5.1)
[2017-03-09] MEDS ORDERED: DIAZEPAM 5 MG TABLET PO ONE (06:00)
[2017-03-09] MEDS ORDERED: diphenhydrAMINE CAP 25 MG CAPSULE PO ONE (06:00)
--- NOTE | 2017-03-09 07:32 | EKG Report ---
Stationary ECG Study [facility] Test Date: 03/09/2017 7:33:20 AM Pat Name: HAYLEY DEAN Department: Room: 518 Gender: F Dedicated Driver: PETRA : 1940 Requested by: Oracio Winkler Order Number: [id number] Angy MD: MALIK KENYON Intervals Luana Rate: 72 P: 999 RI: 0 QRS: -10 QRSD: 179 T: -28 QT: 416 QTc: 440 Interpretive Statements ATRIAL FIBRILLATION WITH CONTROLLED VENTRICULAR RESPONSE AND RBBB Electronically Signed On 03-11-17 14:09:22 CDT by MALIK KENYON [email or web address]
[2017-03-09] MEDS: PANTOPRAZOLE 40 MG TABLET PO SCH ×2 (09:06→09:10)
[2017-03-09] MEDS: FERROUS SULFATE 325 MG TABLET PO SCH ×2 (09:06→20:24)
[2017-03-09] MEDS: METOCLOPRAMIDE 5 MG TABLET PO SCH ×3 (09:06→16:49)
[2017-03-09] MEDS: DOCUSATE SODIUM 100 MG CAPSULE PO SCH ×2 (09:06→20:24)
[2017-03-09] MEDS: CARVEDILOL 3.125 MG TABLET PO SCH ×2 (09:06→20:24)
[2017-03-09] MEDS: FUROSEMIDE 80 MG TABLET PO SCH ×2 (09:07→20:24)
[2017-03-09] MEDS: SUCRALFATE 1 GM TABLET PO SCH ×3 (09:07→16:50)
[2017-03-09] MEDS: FLUTICASONE 50 MCG NASAL SPRAY 16 GM BOTTLE BOTH NARES SCH (09:07)
[2017-03-09] MEDS: INSULIN LISPRO 100 UNIT/ML SUBCUT SCH ×4 (09:07→20:24)
[2017-03-09] MEDS: hydrALAZINE 25 MG TABLET PO SCH ×2 (09:07→20:24)
[2017-03-09] MEDS: ALLOPURINOL 300 MG TABLET PO SCH (09:07)
--- NOTE | 2017-03-09 17:49 | Cardiology Progress Note ---
Connor Ugarte Vanessa RN, am scribing for, and in the presence of, Beth Kenyon DO 17 :48. Assessment and Plan - Time spent with patient Time spent with patient: Greater than 30 minutes (1) Chest pain Status: Acute Assessment and plan: Appears to be noncardiac. No clinical findings suggestive of ACS. Current Visit: Yes (2) Mitral regurgitation Status: Acute Current Visit: Yes Qualifiers: Cardiac valve disease etiology: nonrheumatic Qualified Code(s): I34.0 - Nonrheumatic mitral (valve) insufficiency (3) CKD (chronic kidney disease) stage 3, GFR 30-59 ml/min Status: Chronic Assessment and plan: Renal insufficiency remains overall stable at this time. Creatinine 2.4. Monitor renal function closely. Avoid nephrotoxic agents. SONAL inhibitor and ARB are avoided due to fear of worsening renal function. Current Visit: Yes (4) COPD (chronic obstructive pulmonary disease) Status: Chronic Assessment and plan: Appears to be stable at this time. Current Visit: Yes (5) GERD (gastroesophageal reflux disease) Status: Chronic Assessment and plan: Continue PPI. Current Visit: Yes (6) Anemia Status: Chronic Assessment and plan: Stable anemia at this time. Monitor H&H carefully and for overt S/S bleeding. Anemia is multifactorial in nature and exacerbated by renal dysfunction. As per HPI Current Visit: No Qualifiers: Chronic kidney disease stage: stage 3 (moderate) (7) Atrial fibrillation Status: Chronic Assessment and plan: Persistent atrial fibrillation with well-controlled ventricular response. Continue low-dose beta-merissa. Anticoagulated with Eliquis for stroke prevention. Current Visit: No Qualifiers: Atrial fibrillation type: persistent Qualified Code(s): I48.1 - Persistent atrial fibrillation (8) Chronic anticoagulation Status: Chronic Assessment and plan: She is anticoagulated with low-dose Eliquis for stroke prevention. Eliquis was stopped yesterday due to anemia. Current Visit: No (9) Hypertension Status: Chronic Assessment and plan: Blood pressures are well controlled at this time, and she is actually borderline hypotensive. Monitor carefully and adjust medication regimen as indicated. Current Visit: Yes Qualifiers: Hypertension type: essential hypertension Qualified Code(s): I10 - Essential (primary) hypertension (10) Obesity Status: Chronic Assessment and plan: Dietary counseling and caloric intake restriction. 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 KENYON Ms. Lynn is a 77 year old black female with risk factor significant for: hypertension, obesity, sedentary last. Patient has never been a smoker. Past medical history includes persistent atrial fibrillation, ischemic CVA, chronic kidney disease stage III, acute on chronic systolic and diastolic congestive heart failure with EF 35%, venous insufficiency of bilateral lower extremities, and COPD. Patient required hospitalization in January 2017 for anemia and GI bleeding. EGD during January hospital admission revealed small hiatal hernia and multiple gastric antral ulcers suspected to be a source of bleeding. She was readmitted to the hospital near the end of January 2017 for decompensated heart failure. Patient was diuresed, medications were adjusted, and she was discharged to swing bed on February 09 for further therapy as she was still significantly deconditioned. Patient has been scheduled to undergo left heart catheterization several times but this has had to be canceled for various reasons including anemia, epistaxis, and nonhealing bilateral lower extremity ulcers. Patient has been treated medically in the meantime. She is chronically anticoagulated with Eliquis for stroke prevention and has done well with this. Patient is now admitted on March 07 and transferred from [facility] for further evaluation of chest pain with minimal relief after sublingual nitroglycerin 3. EKG and cardiac biomarkers have been negative for acute ischemic finding. February: Ms. Lynn is ambulating back to bed from bathroom this morning. Reports she is feeling a bit short of breath this morning, and that she is continuing to have a mid-sternal chest pressure, non-radiating, described as a "a catch that just won't go away" and worsened with deep inspiration. No other aggravating factors , no alleviating factors. Slight expirational wheeze noted. Patient is also having some epistaxis at time of exam which she reports started spontaneously just a few minutes ago. Supplemental oxygen does have water bottle humidification in place. Cardiac cath was scheduled for this morning had to be postponed due to slight worsening of anemia, H/H 7.3 & 22.7 this morning. Electrolytes within normal range. Creatinine stable at 2.4. EKG and cardiac monitoring demonstrate atrial fibrillation, controlled ventricular response 70s , no acute changes. Repeat cardiac biomarkers yesterday were normal. I intended to cath Ms. Lynn this morning as her creatinine appears relatively stable. However her H&H has continued to decline. I feel this is best that she not have a heart cath at this time. Differential in her cardiomyopathy is long. It may be due to long-standing atrial fibrillation I think for now given the severity of her renal disease and her anemia which she seems to tolerate quite well we should perform a nuclear stress test and see how she does. If it is markedly abnormal will have to accept the risk of cath if it is suggestive of ischemia or a high risk stress test. If there is no evidence of reversible ischemia I think at this point we should treat medically. I do however think this recurrence of GI bleeding and continually declining H&H would suggest we should hold her anticoagulation although this is less than desirable. I have discontinued her Eliquis for now. She continues to be on iron and have black stools and is difficult to know if this is from the iron or if she continues to bleed. I will give her a dose of Epogen. Exam (Progress Note) - Constitutional Vitals: Period Temp Pulse Resp BP Sys/Marie Pulse Ox Last 24 Hr 96.8 F-98.6 F 63-79 18-20 90-125/47-69 95-100 Exam: General appearance: no acute distress, morbidly obese - Head Head exam: Present: normal inspection. Absent: normocephalic, atraumatic, abrasion, contusion, hematoma, laceration - Eye Eye exam: Present: EOMI. Absent: conjunctival injection, periorbital swelling, scleral icterus Pupils: Present: LYNDSEY. Absent: dilated, fixed - ENT ENT exam: Present: epistaxis. (denies sneezing, scratching, irritating) - Neck Neck exam: Present: normal inspection. Absent: tenderness - Respiratory Respiratory exam: Present: clear to auscultation bilaterally. Absent: accessory muscle use, rales, rhonchi, stridor, wheezes. Other: supplemental oxygen via nasal cannula with water bottle humidification in place - Cardiovascular Cardiovascular exam: Present: irregular rhythm and controlled rate. Absent: diastolic murmur, JVD, systolic murmur, tachycardia - GI/Abdominal GI/Abdominal exam: Present: normal bowel sounds, soft. Absent: ascites, distended, firm, guarding - Extremities Exam Extremities exam: Present: normal capillary refill, edema (3+ bilateral lower extremities), other (MATY hose in place). Absent: calf tenderness - Back Exam Back exam: Present: normal inspection - Neurological Exam Neurological exam: Present: alert, oriented X3 - Psychiatric Psychiatric exam: Present: normal affect, normal mood. Absent: agitated, anxious, depressed - Skin Skin exam: Present: warm, dry, other. Absent: cyanosis, diaphoretic, pallor, petechiae, rash Result/EKG - Labs CBC & BMP: 03/09/17 04:22 03/09/17 04:22 Lab Results: I have reviewed the past 24 hour labs Labs: Laboratory Results - last 24 hr 03/08/17 03/08/17 03/08/17 11:29 13:35 15:14 WBC RBC Hgb Hct MCV MCH MCHC RDW Plt Count MPV Neut % (Auto) Lymph % (Auto) [place] % (Auto) Eos % (Auto) Baso % (Auto) Neut # (Auto) Lymph # (Auto) [place] # (Auto) Eos # (Auto) Baso # (Auto) Immature Gran % Nucleated RBC % Immature Gran # Nucleated RBCs # Sodium Potassium Chloride Carbon Dioxide Anion Gap BUN Creatinine GFR Calculation BUN/Creatinine Ratio Glucose POC Glucose 88 102 Calculated Osmolality Calcium Magnesium 2.4 Total Creatine Kinase CK-MB (CK-2) Troponin I 03/08/17 03/08/17 03/09/17 17:41 20:25 04:22 WBC 4.0 RBC 2.40 L Hgb 7.3 L Hct 22.7 L MCV 94.6 MCH 30 MCHC 32.2 RDW 16.3 Plt Count 130 MPV 11.3 Neut % (Auto) 58.1 Lymph % (Auto) 26.8 [place] % (Auto) 11.2 Eos % (Auto) 3.2 Baso % (Auto) 0.5 Neut # (Auto) 2.3 Lymph # (Auto) 1.1 L [place] # (Auto) 0.5 Eos # (Auto) 0.1 Baso # (Auto) 0.0 Immature Gran % 0.2 Nucleated RBC % 0.0 Immature Gran # 0.01 Nucleated RBCs # 0.00 Sodium Potassium Chloride Carbon Dioxide Anion Gap BUN Creatinine GFR Calculation BUN/Creatinine Ratio Glucose POC Glucose 142 H Calculated Osmolality Calcium Magnesium Total Creatine Kinase 53 CK-MB (CK-2) 1.1 Troponin I 0.039 03/09/17 03/09/17 04:22 07:24 WBC RBC Hgb Hct MCV MCH MCHC RDW Plt Count MPV Neut % (Auto) Lymph % (Auto) [place] % (Auto) Eos % (Auto) Baso % (Auto) Neut # (Auto) Lymph # (Auto) [place] # (Auto) Eos # (Auto) Baso # (Auto) Immature Gran % Nucleated RBC % Immature Gran # Nucleated RBCs # Sodium 140 Potassium 3.9 Chloride 102 Carbon Dioxide 33 H Anion Gap 8.9 BUN 68 H Creatinine 2.40 H GFR Calculation 27 BUN/Creatinine Ratio 28.00 H Glucose 86 POC Glucose 93 Calculated Osmolality 297.4 Calcium 9.3 Magnesium Total Creatine Kinase CK-MB (CK-2) Troponin I - EKG EKG results: interpreted by me, no acute changes EKG shows: sinus rhythm IJacinda Shea, DO, personally performed the services described in this documentation, ascribed by Zeynep Ryan RN in my presence, and it is both accurate and complete [id number] .
[2017-03-09] MEDS: MONTELUKAST 10 MG TABLET PO SCH (20:24)
[2017-03-10] MEDS: ALBUTEROL 2.5 MG/3 ML NEB RESP TX SCH ×4 (00:46→20:00)
[2017-03-10] MEDS: INSULIN LISPRO 100 UNIT/ML SUBCUT SCH ×4 (07:37→21:00)
[2017-03-10] MEDS: SUCRALFATE 1 GM TABLET PO SCH ×3 (07:37→15:36)
[2017-03-10] MEDS: METOCLOPRAMIDE 5 MG TABLET PO SCH ×3 (07:37→15:36)
[2017-03-10] MEDS: DOCUSATE SODIUM 100 MG CAPSULE PO SCH ×2 (08:20→20:58)
[2017-03-10] MEDS: hydrALAZINE 25 MG TABLET PO SCH ×3 (08:20→20:58)
[2017-03-10] MEDS: PANTOPRAZOLE 40 MG TABLET PO SCH ×3 (08:20→10:46)
[2017-03-10] MEDS: FLUTICASONE 50 MCG NASAL SPRAY 16 GM BOTTLE BOTH NARES SCH (08:20)
[2017-03-10] MEDS: FERROUS SULFATE 325 MG TABLET PO SCH ×3 (08:20→20:58)
[2017-03-10] MEDS: CARVEDILOL 3.125 MG TABLET PO SCH ×3 (08:20→20:58)
[2017-03-10] MEDS: FUROSEMIDE 80 MG TABLET PO SCH ×3 (08:20→20:58)
[2017-03-10] MEDS: ALLOPURINOL 300 MG TABLET PO SCH ×2 (08:21→10:46)
[2017-03-10] MEDS ORDERED: DEXTROSE 50% 25 GM/50 ML SYRINGE IV PRN (08:30)
--- NOTE | 2017-03-10 08:36 | Cardiology Progress Note ---
<Leidy Chauhan E - Last Filed: 03/10/17 09:01> Assessment and Plan - Time spent with patient Time spent with patient: Greater than 30 minutes (1) Anemia Status: Chronic Assessment and plan: SEE PLAN OF CARE LISTED BELOW Current Visit: No Qualifiers: Chronic kidney disease stage: stage 3 (moderate) (2) Chronic renal insufficiency Status: Chronic Assessment and plan: SEE PLAN OF CARE LISTED BELOW Current Visit: Yes Qualifiers: Chronic kidney disease stage: stage 3 (moderate) Qualified Code(s): N18.3 - Chronic kidney disease, stage 3 (moderate) (3) Cardiomyopathy Status: Chronic Assessment and plan: SEE PLAN OF CARE LISTED BELOW Current Visit: Yes (4) Atrial fibrillation Status: Chronic Assessment and plan: SEE PLAN OF CARE LISTED BELOW Current Visit: No Qualifiers: Atrial fibrillation type: persistent Qualified Code(s): I48.1 - Persistent atrial fibrillation (5) Chronic anticoagulation Status: Chronic Assessment and plan: SEE PLAN OF CARE LISTED BELOW Current Visit: No (6) Overweight Status: Chronic Current Visit: No (7) Chronic renal insufficiency, stage III (moderate) Status: Chronic Assessment and plan: SEE PLAN OF CARE LISTED BELOW Current Visit: No (8) Obesity Status: Chronic Assessment and plan: SEE PLAN OF CARE LISTED BELOW Current Visit: No Qualifiers: Obesity type: due to excess calories Obesity classification: adult class 3 (BMI >= 40) Serious obesity comorbidity presence: with serious comorbidity (9) Mitral regurgitation Status: Chronic Assessment and plan: SEE PLAN OF CARE LISTED BELOW Current Visit: Yes Qualifiers: Cardiac valve disease etiology: nonrheumatic Qualified Code(s): I34.0 - Nonrheumatic mitral (valve) insufficiency (10) Debility Status: Chronic Assessment and plan: SEE PLAN OF CARE LISTED BELOW Current Visit: No (11) CKD (chronic kidney disease) stage 3, GFR 30-59 ml/min Status: Chronic Assessment and plan: SEE PLAN OF CARE LISTED BELOW Current Visit: Yes Cardiology - PN: Subj Interval history: BUSINESS INTELLIGENCE CONSULTANT: DR. BRAY SUMMARY: Ms. Lynn, 77BF, was admitted March 08, 2017 received in transfer from [facility] in [place] for further evaluation of chest pain. Cardiac biomarkers negative, EKG did not reveal VT. History of hypertension, persistent atrial fibrillation, ischemic CVA, CKD stage III, CHF, anemia/GI bleed (January 2017 gastric antral ulcers per EGD), epistaxis. Echocardiogram : EF 35%, grade 3 diastolic dysfunction, severe concentric LVH, moderate to severe mitral regurgitation, moderate to severe tricuspid regurgitation, PAP 65 mmHg. MARCH 10, 2017: Patient has been in need of heart catheterization for quite some time. However, due to her anemia this is been postponed on numerous occasions. This morning, she is scheduled for stress test. If it is markedly abnormal, patient may require heart catheterization despite her multiple comorbidities. If there is no evidence of reversible ischemia, medical management will ensue. Eliquis has been discontinued due to her severe anemia. Epogen was given yesterday. Patient reports that she slept relatively well but is extremely tired. Slightly dizzy, particularly with movements. May benefit from blood transfusion. Will further discuss with Dr. Monaco and await additional recommendations. ASSESSMENT/PLAN: 1. CHEST PAIN - n.p.o. for stress testing this morning. This is not VT 2. MITRAL REGURGITATION - moderate to severe. Tolerating low-dose beta- merissa. 3. CKD, STAGE III - continue to follow BMP daily 4. ANEMIA - Epogen yesterday. Continue to follow anemia panel daily. 5. ATRIAL FIBRILLATION - IRASEMA VASC SCORE 7. At this time, Eliquis being held due to to severe anemia. 6. HYPERTENSION - continue beta-merissa. Avoiding SONAL inhibitor for fear of worsening renal insufficiency 7. GERD - continue current plan of care 8. DYSLIPIDEMIA - LDL 95. Depending on results of stress test, patient may require lipid-lowering agent if this is thought to be an ischemic problem. However, if it is felt to be a nonischemic cardiomyopathy, will not need. 9. CARDIOMYOPATHY - EF35%. Clinically unable to determine etiology at this time. Exam (Progress Note) - Constitutional Vitals: Period Temp Pulse Resp BP Sys/Marie Pulse Ox Last 24 Hr 96.9 F-98.3 F 61-72 18-20 94-129/47-70 96-99 Exam: General: [Appears well with no apparent distress.] [Pleasant and cooperative. ] [Appears comfortable.] HEENT: [Normocephalic, atraumatic. Mucous membranes moist. No jaundice noted. Conjunctiva moist and clear, sclerae anicteric] Neck: No JVD/HJR, no thyromegaly or lymphadenopathy noted. No carotid bruit appreciated Cardiac: [Regular rate and rhythm.] [No obvious murmur, rub or gallop.] Lungs: [Clear to auscultation without accessory muscle use to assist the respiratory pattern.] Not requiring oxygen Abdomen: Soft, bowel sounds normoactive. Nontender and nondistended. No abdominal bruit or thrill noted. No masses noted. Musculoskeletal: Decreased range of motion is noted. Extremities: No clubbing, cyanosis noted. [ 1+ edema BLE noted, TEDs on. ] Upper extremity pulses 2+. Lower extremity pulses 1+. Capillary refill sluggish. Skin: No unusual lesions or rashes. No skin breakdown appreciated. Neuro: Awake, alert and oriented 3. Moves all extremities well without hemiparesis or paralysis. No essential tremor is appreciated. Result/EKG - Labs CBC & BMP: 03/09/17 04:22 03/09/17 04:22 Lab Results: I have reviewed the past 24 hour labs Labs: Laboratory Results - last 24 hr 03/09/17 03/09/17 03/09/17 11:04 15:56 19:50 POC Glucose 114 H 116 H 163 H - EKG EKG results: interpreted by me EKG shows: atrial fibrillation <Beth Monaco - Last Filed: 03/10/17 16:21> Assessment and Plan (1) Chest pain Status: Acute Current Visit: Yes (2) Mitral regurgitation Status: Chronic Current Visit: Yes Qualifiers: Cardiac valve disease etiology: nonrheumatic Qualified Code(s): I34.0 - Nonrheumatic mitral (valve) insufficiency (3) CKD (chronic kidney disease) stage 3, GFR 30-59 ml/min Status: Chronic Current Visit: Yes (4) COPD (chronic obstructive pulmonary disease) Status: Chronic Current Visit: Yes (5) GERD (gastroesophageal reflux disease) Status: Chronic Current Visit: Yes (6) Anemia Status: Chronic Current Visit: No Qualifiers: Chronic kidney disease stage: stage 3 (moderate) (7) Atrial fibrillation Status: Chronic Current Visit: No Qualifiers: Atrial fibrillation type: persistent Qualified Code(s): I48.1 - Persistent atrial fibrillation (8) Chronic anticoagulation Status: Chronic Current Visit: No (9) Hypertension Status: Chronic Current Visit: Yes Qualifiers: Hypertension type: essential hypertension Qualified Code(s): I10 - Essential (primary) hypertension (10) Obesity Status: Chronic Current Visit: No Qualifiers: Obesity type: due to excess calories Obesity classification: adult class 3 (BMI >= 40) Serious obesity comorbidity presence: with serious comorbidity Cardiology - PN: Subj Interval history: I have not had opportunity to review the stress test performed earlier this day by Ms. Chauhan I will look at that. I discussed with the patient. I will anterior IV fluids the family is requesting that she go to swing bed. Her chads vas score is extremely elevated but she has profound anemia that has been worsening during her time on this medication. I discussed with her briefly about cessation this medicine and stroke risk. When I saw her initially a few months ago she was not on anticoagulation and the duration of her A. fib is unknown. It is unfortunate I just do not think at this time we can continue anticoagulation which resulted in likely H&H decline in the face of her low EF. INT fluids, OT and PT are to see. She may need to be in a detention if the family is not able to continue to take care of her she is extremely weak. This is multifactorial. Exam (Progress Note) - Constitutional Vitals: Period Temp Pulse Resp BP Sys/Marie Pulse Ox Last 24 Hr 96.7 F-98.3 F 61-75 16-20 94-129/47-70 96-99 Exam: Patient's rate is irregular rate is controlled. Remainder the exam is as above. TD hose in place and edema is better. Result/EKG - Labs CBC & BMP: 03/10/17 09:35 03/10/17 09:35 Labs: Laboratory Results - last 24 hr 03/09/17 03/09/17 03/10/17 15:56 19:50 07:14 WBC RBC Hgb Hct MCV MCH MCHC RDW Plt Count MPV Neut % (Auto) Lymph % (Auto) [place] % (Auto) Eos % (Auto) Baso % (Auto) Neut # (Auto) Lymph # (Auto) [place] # (Auto) Eos # (Auto) Baso # (Auto) Immature Gran % Nucleated RBC % Immature Gran # Nucleated RBCs # Immature Plt Fraction Sodium Potassium Chloride Carbon Dioxide Anion Gap BUN Creatinine GFR Calculation BUN/Creatinine Ratio Glucose POC Glucose 116 H 163 H 99 Calculated Osmolality Calcium Magnesium 03/10/17 03/10/17 03/10/17 09:35 09:35 11:17 WBC 4.0 RBC 2.55 L Hgb 7.8 L Hct 24.4 L MCV 95.7 MCH 31 MCHC 32.0 RDW 16.1 Plt Count 140 MPV 10.9 Neut % (Auto) 62.0 Lymph % (Auto) 24.6 [place] % (Auto) 9.0 Eos % (Auto) 3.8 Baso % (Auto) 0.3 Neut # (Auto) 2.5 Lymph # (Auto) 1.0 L [place] # (Auto) 0.4 Eos # (Auto) 0.2 Baso # (Auto) 0.0 Immature Gran % 0.3 Nucleated RBC % 0.0 Immature Gran # 0.01 Nucleated RBCs # 0.00 Immature Plt Fraction 0.0 Sodium 143 Potassium 3.7 Chloride 103 Carbon Dioxide 34 H Anion Gap 9.7 BUN 67 H Creatinine 2.40 H GFR Calculation 27 BUN/Creatinine Ratio 27.00 H Glucose 87 POC Glucose 141 H Calculated Osmolality 302.0 Calcium 9.4 Magnesium 2.3
[2017-03-10] MEDS ORDERED: REGADENOSON 0.4 MG/5 ML SYRINGE IV ONE (09:24)
[2017-03-10 10:01] LABS: Basophils % 0.3 % (0.0-0.8); Eosinophils # 0.2 10*3/uL (0.0-0.87); Eosinophils % 3.8 % (0.00-10.9); Hematocrit 24.4 VOL% (35.7-47.0); Hemoglobin 7.8 GM/DL (12.0-16.0); Immature Granulocytes % 0.3 %; Immature Granulocytes Absolute 0.01 #; Lymphocytes % 24.6 % (21.3-54.2); Mean Corpuscular Hemoglobin 31 PG (27-34); Mean Corpuscular Volume 95.7 FL (87-102); Mean Platelet Volume 10.9 FL (9.6-12.0); Monocytes # 0.4 10*3/uL (0.11-0.8); Neutrophils # 2.5 10*3/uL (1.4-7.4); Platelet Count 140 T/CUMM (130-400); Red Blood Count 2.55 MC/CUMM (3.8-5.5); Red Cell Distribution Width 16.1 % (9.3-17.3)
[2017-03-10 10:24] LABS: Calcium 9.4 MG/DL (8.5-10.1); Magnesium 2.3 MG/DL (1.8-2.4); Potassium 3.7 MMOL/L (3.5-5.1)
[2017-03-10] MEDS: MONTELUKAST 10 MG TABLET PO SCH (20:58)
[2017-03-11] MEDS: ALBUTEROL 2.5 MG/3 ML NEB RESP TX SCH ×4 (00:23→18:55)
[2017-03-11 06:26] LABS: Basophils % 0.2 % (0.0-0.8); Eosinophils # 0.2 10*3/uL (0.0-0.87); Hematocrit 21.6 VOL% (35.7-47.0); Hemoglobin 6.9 GM/DL (12.0-16.0); Immature Granulocytes % 0.2 %; Immature Granulocytes Absolute 0.01 #; Lymphocytes # 1.2 10*3/uL (1.4-4.0); Lymphocytes % 27.4 % (21.3-54.2); Mean Corpuscular HGB Conc 31.9 GM/DL (32-36); Mean Corpuscular Hemoglobin 31 PG (27-34); Mean Corpuscular Volume 96.4 FL (87-102); Mean Platelet Volume 11.8 FL (9.6-12.0); Monocytes # 0.5 10*3/uL (0.11-0.8); Monocytes % 11.3 % (1.7-12.7); Neutrophils # 2.4 10*3/uL (1.4-7.4); Neutrophils % 56.9 % (38.7-73.9); Platelet Count 132 T/CUMM (130-400); Red Blood Count 2.24 MC/CUMM (3.8-5.5); Red Cell Distribution Width 16.1 % (9.3-17.3); White Blood Count 4.2 T/CUMM (4-12)
[2017-03-11 06:58] LABS: Calcium 9.3 MG/DL (8.5-10.1); Magnesium 2.2 MG/DL (1.8-2.4); Osmolality,Calculated 301.1 MOS/KG (273-304); Potassium 3.6 MMOL/L (3.5-5.1)
[2017-03-11] MEDS: INSULIN LISPRO 100 UNIT/ML SUBCUT SCH ×4 (07:49→20:51)
[2017-03-11] MEDS: hydrALAZINE 25 MG TABLET PO SCH ×2 (08:17→20:51)
[2017-03-11] MEDS: ALLOPURINOL 300 MG TABLET PO SCH (08:17)
[2017-03-11] MEDS: FUROSEMIDE 80 MG TABLET PO SCH ×2 (08:17→20:51)
[2017-03-11] MEDS: FERROUS SULFATE 325 MG TABLET PO SCH ×2 (08:17→20:51)
[2017-03-11] MEDS: METOCLOPRAMIDE 5 MG TABLET PO SCH ×3 (08:17→15:31)
[2017-03-11] MEDS: PANTOPRAZOLE 40 MG TABLET PO SCH ×2 (08:17→08:20)
[2017-03-11] MEDS: DOCUSATE SODIUM 100 MG CAPSULE PO SCH ×2 (08:17→20:51)
[2017-03-11] MEDS: SUCRALFATE 1 GM TABLET PO SCH ×3 (08:17→15:31)
[2017-03-11] MEDS: CARVEDILOL 3.125 MG TABLET PO SCH ×2 (08:18→20:51)
[2017-03-11] MEDS: FLUTICASONE 50 MCG NASAL SPRAY 16 GM BOTTLE BOTH NARES SCH (08:20)
[2017-03-11 08:34] LABS: Basophils % 0.2 % (0.0-0.8); Eosinophils # 0.1 10*3/uL (0.0-0.87); Eosinophils % 3.1 % (0.00-10.9); Hematocrit 23.6 VOL% (35.7-47.0); Hemoglobin 7.5 GM/DL (12.0-16.0); Immature Granulocytes % 0.2 %; Immature Granulocytes Absolute 0.01 #; Lymphocytes % 24.9 % (21.3-54.2); Mean Corpuscular HGB Conc 31.8 GM/DL (32-36); Mean Corpuscular Hemoglobin 31 PG (27-34); Mean Corpuscular Volume 95.9 FL (87-102); Mean Platelet Volume 11.5 FL (9.6-12.0); Monocytes # 0.4 10*3/uL (0.11-0.8); Monocytes % 10.5 % (1.7-12.7); Neutrophils # 2.6 10*3/uL (1.4-7.4); Neutrophils % 61.1 % (38.7-73.9); Platelet Count 137 T/CUMM (130-400); Red Blood Count 2.46 MC/CUMM (3.8-5.5); Red Cell Distribution Width 16.2 % (9.3-17.3); White Blood Count 4.2 T/CUMM (4-12)
[2017-03-11] MEDS ORDERED: CYCLOBENZAPRINE 10 MG TABLET PO PRN (10:33)
--- NOTE | 2017-03-11 10:36 | Cardiology Progress Note ---
Assessment and Plan (1) Chest pain Status: Acute Assessment and plan: Appears to be noncardiac. No clinical findings suggestive of ACS. Add skeletal muscle relaxants at her request. No evidence of reversible ischemia on her nuclear imaging Current Visit: Yes (2) Mitral regurgitation Status: Chronic Current Visit: Yes Qualifiers: Cardiac valve disease etiology: nonrheumatic Qualified Code(s): I34.0 - Nonrheumatic mitral (valve) insufficiency (3) CKD (chronic kidney disease) stage 3, GFR 30-59 ml/min Status: Chronic Assessment and plan: Renal insufficiency remains overall stable at this time. Creatinine 2.4. Monitor renal function closely. Avoid nephrotoxic agents. SONAL inhibitor and ARB are avoided due to fear of worsening renal function. Current Visit: Yes (4) COPD (chronic obstructive pulmonary disease) Status: Chronic Assessment and plan: Appears to be stable at this time. Current Visit: Yes (5) GERD (gastroesophageal reflux disease) Status: Chronic Assessment and plan: Continue PPI. Current Visit: Yes (6) Anemia Status: Chronic Assessment and plan: Stable anemia at this time. Monitor H&H carefully and for overt S/S bleeding. Anemia is multifactorial in nature and exacerbated by renal dysfunction. As per HPI Current Visit: No Qualifiers: Chronic kidney disease stage: stage 3 (moderate) (7) Atrial fibrillation Status: Chronic Assessment and plan: Persistent atrial fibrillation with well-controlled ventricular response. Continue low-dose beta-merissa. Hold anticoagulation because of anemia Current Visit: No Qualifiers: Atrial fibrillation type: persistent Qualified Code(s): I48.1 - Persistent atrial fibrillation (8) Chronic anticoagulation Status: Chronic Assessment and plan: Holding anticoagulation Current Visit: No (9) Hypertension Status: Chronic Assessment and plan: Blood pressures are well controlled at this time, and she is actually borderline hypotensive. Monitor carefully and adjust medication regimen as indicated. Current Visit: Yes Qualifiers: Hypertension type: essential hypertension Qualified Code(s): I10 - Essential (primary) hypertension (10) Obesity Status: Chronic Assessment and plan: Dietary counseling and caloric intake restriction. Current Visit: No Qualifiers: Obesity type: due to excess calories Obesity classification: adult class 3 (BMI >= 40) Serious obesity comorbidity presence: with serious comorbidity (11) Cardiomyopathy Status: Chronic Assessment and plan: No evidence of reversible ischemia may be ischemic and completed or possibly related to her A. fib with RVR plan to control RVR and repeat echo as an outpatient in 3 months Current Visit: Yes Cardiology - PN: Subj Interval history: Ms. Lynn continues to complain of "spasms" in her left pectoralis area. It does not seem to be related to swallowing and is not related to exertion it comes and goes intermittently. She had a nuclear Lexiscan yesterday that shows improvement in her ejection fraction and no evidence of reversible ischemia. She is in atrial fibrillation in the computer estimated ejection fraction of 53% . I think this is likely an over representation of her ejection fraction certainly probably represents improvement with control of her rate. She has not had any more melena we have discontinued her anticoagulation and gave her 1 dose of Epogen she also is on iron. She is requested a medication for multiple muscle spasms I think that is reasonable. I told her about disposition and I thought she was ready for discharge she told me she wanted another day. Exam (Progress Note) - Constitutional Vitals: Period Temp Pulse Resp BP Sys/Marie Pulse Ox Last 24 Hr 96.7 F-97.9 F 63-87 16-20 102-115/53-62 96-100 General appearance: over weight - Head Head exam: Present: normal inspection - Eye Eye exam: Present: EOMI Pupils: Present: LYNDSEY - Respiratory Respiratory exam: Present: clear to auscultation bilaterally - Cardiovascular Cardiovascular exam: Present: irregular rhythm - GI/Abdominal GI/Abdominal exam: Present: normal bowel sounds - Neurological Exam Neurological exam: Present: alert, oriented X3 - Psychiatric Psychiatric exam: Present: normal affect, normal mood - Skin Skin exam: Present: normal color, warm, dry Result/EKG - Labs CBC & BMP: 03/11/17 07:50 03/11/17 04:17 Labs: Laboratory Results - last 24 hr 03/10/17 03/10/17 03/10/17 07:14 11:17 16:25 WBC RBC Hgb Hct MCV MCH MCHC RDW Plt Count MPV Neut % (Auto) Lymph % (Auto) [place] % (Auto) Eos % (Auto) Baso % (Auto) Neut # (Auto) Lymph # (Auto) [place] # (Auto) Eos # (Auto) Baso # (Auto) Immature Gran % Nucleated RBC % Immature Gran # Nucleated RBCs # Immature Plt Fraction Sodium Potassium Chloride Carbon Dioxide Anion Gap BUN Creatinine GFR Calculation BUN/Creatinine Ratio Glucose POC Glucose 99 141 H 114 H Calculated Osmolality Calcium Magnesium 03/10/17 03/11/17 03/11/17 19:40 04:17 04:17 WBC 4.2 RBC 2.24 L Hgb 6.9 L Hct 21.6 L MCV 96.4 MCH 31 MCHC 31.9 L RDW 16.1 Plt Count 132 MPV 11.8 Neut % (Auto) 56.9 Lymph % (Auto) 27.4 [place] % (Auto) 11.3 Eos % (Auto) 4.0 Baso % (Auto) 0.2 Neut # (Auto) 2.4 Lymph # (Auto) 1.2 L [place] # (Auto) 0.5 Eos # (Auto) 0.2 Baso # (Auto) 0.0 Immature Gran % 0.2 Nucleated RBC % 0.0 Immature Gran # 0.01 Nucleated RBCs # 0.00 Immature Plt Fraction 0.0 Sodium 142 Potassium 3.6 Chloride 104 Carbon Dioxide 33 H Anion Gap 8.6 BUN 67 H Creatinine 2.40 H GFR Calculation 27 BUN/Creatinine Ratio 27.00 H Glucose 102 POC Glucose 122 H Calculated Osmolality 301.1 Calcium 9.3 Magnesium 2.2 03/11/17 07:50 WBC 4.2 RBC 2.46 L Hgb 7.5 L Hct 23.6 L MCV 95.9 MCH 31 MCHC 31.8 L RDW 16.2 Plt Count 137 MPV 11.5 Neut % (Auto) 61.1 Lymph % (Auto) 24.9 [place] % (Auto) 10.5 Eos % (Auto) 3.1 Baso % (Auto) 0.2 Neut # (Auto) 2.6 Lymph # (Auto) 1.0 L [place] # (Auto) 0.4 Eos # (Auto) 0.1 Baso # (Auto) 0.0 Immature Gran % 0.2 Nucleated RBC % 0.0 Immature Gran # 0.01 Nucleated RBCs # 0.00 Immature Plt Fraction 0.0 Sodium Potassium Chloride Carbon Dioxide Anion Gap BUN Creatinine GFR Calculation BUN/Creatinine Ratio Glucose POC Glucose Calculated Osmolality Calcium Magnesium
[2017-03-11] MEDS: MONTELUKAST 10 MG TABLET PO SCH (20:51)
[2017-03-12] MEDS: ALBUTEROL 2.5 MG/3 ML NEB RESP TX SCH ×2 (00:41→07:10)
[2017-03-12 05:50] LABS: Basophils % 0.3 % (0.0-0.8); Eosinophils # 0.2 10*3/uL (0.0-0.87); Eosinophils % 4.2 % (0.00-10.9); Hematocrit 22.2 VOL% (35.7-47.0); Hemoglobin 7.2 GM/DL (12.0-16.0); Immature Granulocytes % 0.3 %; Immature Granulocytes Absolute 0.01 #; Lymphocytes # 1.1 10*3/uL (1.4-4.0); Lymphocytes % 28.2 % (21.3-54.2); Mean Corpuscular HGB Conc 32.4 GM/DL (32-36); Mean Corpuscular Hemoglobin 31 PG (27-34); Mean Corpuscular Volume 94.9 FL (87-102); Mean Platelet Volume 11.7 FL (9.6-12.0); Monocytes # 0.4 10*3/uL (0.11-0.8); Monocytes % 10.4 % (1.7-12.7); Neutrophils # 2.2 10*3/uL (1.4-7.4); Neutrophils % 56.6 % (38.7-73.9); Platelet Count 129 T/CUMM (130-400); Red Blood Count 2.34 MC/CUMM (3.8-5.5); Red Cell Distribution Width 16.1 % (9.3-17.3); White Blood Count 3.8 T/CUMM (4-12)
[2017-03-12 06:29] LABS: Calcium 9.7 MG/DL (8.5-10.1); Magnesium 2.1 MG/DL (1.8-2.4); Osmolality,Calculated 298.1 MOS/KG (273-304); Potassium 3.5 MMOL/L (3.5-5.1)
--- NOTE | 2017-03-12 07:24 | Discharge Summary ---
Hospital Course - Hospital Course Hospital Course: Ms. Lynn was admitted with complaints of shortness of breath and some vague chest discomfort that seems noncardiac. She was ruled out for myocardial infarction. She is known to have atrial fibrillation and she has had worsening anemia. She has been evaluated for this previously by GI. She has chronic renal insufficiency and we are hoping to perform a left heart catheterization on her but she is a very high risk of contrast-induced nephropathy. She had a gated nuclear stress test with Lexiscan while admitted to the hospital that showed an anterior fixed defect but no evidence of reversible ischemia and her ejection fraction had improved from what it had been when she was first diagnosed with atrial fibrillation. I long discussion with the patient and recommended that we not have a heart cath at this time. She was treated empirically for chest wall pain in her chest pain improved. We also discussed with the patient that her GI blood loss and therapy to prevent complications or curtail complications from her atrial fibrillation and stroke were opposing therapy and diagnoses. She she understood risk benefits and options and I recommended that we discontinue her anticoagulation for now despite high chads score given her potentially life-threatening anemia. She voiced understanding she appeared to have maximally benefited from hospitalization I discussed with her options she just been discharged from a swing bed and she states that she did not want to go to rehab she will be discharged home this morning. Her vital signs are stable her hemoglobin is 7.2 her creatinine was 2.4 please see the associated labs. This is at her baseline stable condition or levels. Diagnosis - Discharge Diagnosis (1) Chest pain Status: Acute (2) Mitral regurgitation Status: Chronic (3) CKD (chronic kidney disease) stage 3, GFR 30-59 ml/min Status: Chronic (4) COPD (chronic obstructive pulmonary disease) Status: Chronic (5) GERD (gastroesophageal reflux disease) Status: Chronic (6) Anemia Status: Chronic (7) Atrial fibrillation Status: Chronic (8) Chronic anticoagulation Status: Resolved (9) Hypertension Status: Chronic (10) Obesity Status: Chronic (11) Cardiomyopathy Status: Chronic Specialty Discharge - Follow Up or Referrals Follow up with: Beth Monaco DO [Physician] - 1 Month (ECG, BMP and CBC) Discharge Plan - Discharge Data Disposition: Disch To Home/Self Care Condition at Discharge: Stable Discharge Diet: advance to your usual diet Activity: resume usual activities as tolerated, ambulate only with your walker, no lifting Hygiene: no restrictions, may shower, may tub bathe, other Weight Bearing at Discharge: full weight bearing Driving: no restrictions Contact your physician if you experience:: fever over 101, Difficulty voiding, Redness or swelling, Nausea/Vomiting, Shortness of breath, Bleeding, pain uncontrolled by pain medications - Discharge Medications New Cyclobenzaprine [Flexeril] 5 mg PO TID PRN #30 tablet PRN Reason: Muscle Spasm Continue Albuterol Sulfate [Proair HFA] 2 puff INH Q6H PRN PRN Reason: Shortness Of Breath/Wheezing Potassium Chloride 20 meq PO BID Montelukast Tab [Singulair Tab] 10 mg PO BEDTIME Ferrous Sulfate [Iron] 325 mg PO BID Allopurinol 300 mg PO DAILY Pantoprazole Tab [Protonix Tab] 40 mg PO DAILY #30 tablet Furosemide Tab [Lasix Tab] 40 mg PO BID #0 Carvedilol [Coreg] 3.125 mg PO BID #60 tablet Docusate Sodium Cap [Colace Cap] 100 mg PO BID capsule Metoclopramide Tab [Reglan Tab] 5 mg PO TIDAC tablet Sucralfate Tab [Carafate Tab] 1 gm PO TIDAC tablet hydrALAZINE TAB [Apresoline Tab] 25 mg PO BID #60 tablet Albuterol Sulfate [Albuterol Neb] 2.5 mg IH Q6HR Fluticasone 50 Mcg Nasal Flushing [Flonase Nasal Flushing] 2 spray BOTH NARES DAILY spray Discontinued Apixaban [Eliquis] 2.5 mg PO BID #60 tablet - Follow Up or Referral - Forms/Instructions Exam - Constitutional Vitals: Period Temp Pulse Resp BP Sys/Marie Pulse Ox Last 24 Hr 96.9 F-97.6 F 65-90 16-20 96-126/48-73 94-100 General appearance: morbidly obese - Head Head exam: Present: normal inspection - Eye Eye exam: Present: EOMI Pupils: Present: LYNDSEY - Neck Neck exam: Present: normal inspection - Respiratory Respiratory exam: Present: rhonchi - Cardiovascular Cardiovascular exam: Present: irregular rhythm (Rate is well controlled) - GI/Abdominal GI/Abdominal exam: Present: normal bowel sounds - Neurological Exam Neurological exam: Present: alert, oriented X3 - Psychiatric Psychiatric exam: Present: normal affect, normal mood - Skin Skin exam: Present: normal color, warm, dry Discharge Results Procedures and tests throughout hospitalization: Pending Orders 03/10/17 04:00 NM dave perf SPECT rest or str IN AM 03/13/17 04:00 BMP w/ Mg [Basic Metabolic Panel w/Mg] IN AM CBC [Comp Blood Count Auto Diff] IN AM Labs on day of discharge: Labs from last 24 hours 03/12/17 03/12/17 03/11/17 04:14 04:14 20:11 WBC 3.8 L RBC 2.34 L Hgb 7.2 L Hct 22.2 L MCV 94.9 MCH 31 MCHC 32.4 RDW 16.1 Plt Count 129 L MPV 11.7 Neut % (Auto) 56.6 Lymph % (Auto) 28.2 [place] % (Auto) 10.4 Eos % (Auto) 4.2 Baso % (Auto) 0.3 Neut # (Auto) 2.2 Lymph # (Auto) 1.1 L [place] # (Auto) 0.4 Eos # (Auto) 0.2 Baso # (Auto) 0.0 Immature Gran % 0.3 Nucleated RBC % 0.0 Immature Gran # 0.01 Nucleated RBCs # 0.00 Immature Plt Fraction 0.0 Sodium 142 Potassium 3.5 Chloride 103 Carbon Dioxide 32 Anion Gap 10.5 BUN 61 H Creatinine 2.20 H GFR Calculation 30 BUN/Creatinine Ratio 27.00 H Glucose 84 POC Glucose 158 H Calculated Osmolality 298.1 Calcium 9.7 Magnesium 2.1 03/11/17 03/11/17 03/11/17 15:53 11:31 07:50 WBC 4.2 RBC 2.46 L Hgb 7.5 L Hct 23.6 L MCV 95.9 MCH 31 MCHC 31.8 L RDW 16.2 Plt Count 137 MPV 11.5 Neut % (Auto) 61.1 Lymph % (Auto) 24.9 [place] % (Auto) 10.5 Eos % (Auto) 3.1 Baso % (Auto) 0.2 Neut # (Auto) 2.6 Lymph # (Auto) 1.0 L [place] # (Auto) 0.4 Eos # (Auto) 0.1 Baso # (Auto) 0.0 Immature Gran % 0.2 Nucleated RBC % 0.0 Immature Gran # 0.01 Nucleated RBCs # 0.00 Immature Plt Fraction 0.0 Sodium Potassium Chloride Carbon Dioxide Anion Gap BUN Creatinine GFR Calculation BUN/Creatinine Ratio Glucose POC Glucose 126 H 92 Calculated Osmolality Calcium Magnesium 03/11/17 07:03 WBC RBC Hgb Hct MCV MCH MCHC RDW Plt Count MPV Neut % (Auto) Lymph % (Auto) [place] % (Auto) Eos % (Auto) Baso % (Auto) Neut # (Auto) Lymph # (Auto) [place] # (Auto) Eos # (Auto) Baso # (Auto) Immature Gran % Nucleated RBC % Immature Gran # Nucleated RBCs # Immature Plt Fraction Sodium Potassium Chloride Carbon Dioxide Anion Gap BUN Creatinine GFR Calculation BUN/Creatinine Ratio Glucose POC Glucose 107 H Calculated Osmolality Calcium Magnesium DS: Provider Date of admission: 03/08/17 01:20 Primary care physician: . No PCP Attending physician on admission: Beth Monaco DO Consults: 03/08/17 02:54 Consult to Dietitian [CONS] Routine Reason for Dietitian: Dietary Consult 03/10/17 15:12 Consult to Occupational Therapy [CONS] Routine Reason for Occupational Therapy: Other Consult Comment: for possible swingbed placement PT [Consult to Physical Therapy] [CONS] Routine Reason for Physical Therapy: Other Consult Comment: for possible swingbed placement Discharging clinician: Beth Monaco DO
[2017-03-12] MEDS: INSULIN LISPRO 100 UNIT/ML SUBCUT SCH ×2 (07:38→11:34)
[2017-03-12] MEDS: METOCLOPRAMIDE 5 MG TABLET PO SCH ×2 (08:05→11:34)
[2017-03-12] MEDS: PANTOPRAZOLE 40 MG TABLET PO SCH ×2 (08:05→08:08)
[2017-03-12] MEDS: FERROUS SULFATE 325 MG TABLET PO SCH (08:05)
[2017-03-12] MEDS: FUROSEMIDE 80 MG TABLET PO SCH (08:05)
[2017-03-12] MEDS: ALLOPURINOL 300 MG TABLET PO SCH (08:05)
[2017-03-12] MEDS: hydrALAZINE 25 MG TABLET PO SCH (08:05)
[2017-03-12] MEDS: DOCUSATE SODIUM 100 MG CAPSULE PO SCH (08:06)
[2017-03-12] MEDS: SUCRALFATE 1 GM TABLET PO SCH ×2 (08:06→11:34)
[2017-03-12] MEDS: CARVEDILOL 3.125 MG TABLET PO SCH (08:06)
[2017-03-12] MEDS: FLUTICASONE 50 MCG NASAL SPRAY 16 GM BOTTLE BOTH NARES SCH (08:08)
[2017-03-12 12:02] VITALS: BP 118/64
--- NOTE | 2017-03-13 07:20 | Nuclear Medicine Report ---
ROUTINE NUCLEAR STRESS TEST DATE OF PROCEDURE: 03/10/2017 INDICATION: Newly diagnosed cardiomyopathy and renal failure (risk benefit ratio for left heart cath eterization not favorable with longstanding atrial fibrillation). BRIEF HISTORY: A 77-year-old female, who I initially saw, who was found to have low or moderately de pressed EF approximately 35% and atrial fibrillation with RVR. She started on medical therapy. She also found that at time to have chronic renal insufficiently. She has profound anemia and multiple a ttempts to catheter have been aborted because of renal insufficiency, which is moderate to severe. S he is presenting with lower extremity edema and no sign of symptoms of left heart failure. A decisio n was made ultimately to perform a nuclear stress test on her for the purpose of assessing her cardio myopathy, whether this was ischemic in etiology or possibly tachycardia induced. The findings of the stress test have been very helpful. The patient received rest and stress doses of Technetium 99 cardiac tracer and underwent Lexiscan adm inistration direction of ROJAS Webber. Raw data, multidimensional analysis, multiplanar SPECT images, computer-generated ventriculography, and computer-generated quantitative analysis were all r eviewed by myself. She had moderate amount of GI uptake comparable in rest and stress images. Multi planar SPECT images demonstrate an area of photopenia that appears to be unchanged from rest to stres s, this is moderate. Computer-generated quantitative analysis demonstrated summed stress score of 9, summed rest score of 9 and summed different score of 0. Computer-generated ventriculography demonst rates an ejection fraction of 55%. End-diastolic volume is estimated to be 100 and 56 cc and systoli c volume is estimated to be 78 cc and a stroke volume of 98 cc. IMPRESSION: 1. FIXED ANTERIOR DEFECT WITH NO PRONE IMAGING POSSIBLY REPRESENTING OLD MYOCARDIAL INFARCTION, BUT NO REGIONAL WALL MOTION IN THIS REGION, SUSPECT THIS IS BREAST ATTENUATION ARTIFACT. 2. NO EVIDENCE OF REVERSIBLE ISCHEMIA. 3. 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 (This is great news for the patient . I will let her know). Procedure performed and interpreted at [facility] Department of Radiology.
== END 2017-03-12 13:25 | disposition home or self-care (01) ==
LOC: EDUNIT# → EDBD → N.EDINP 00:03 → N.ED 00:03 → N.5E 02:07
PROVIDERS: ADMIT Internal Medicine Cardiovascular Disease; ATTEND Internal Medicine Cardiovascular Disease

== ENCOUNTER 2017-05-29 23:49 | Inpatient (IN) ==
[2017-05-30] MEDS ORDERED: ACETAMINOPHEN 325 MG TABLET PO PRN (01:33)
[2017-05-30] MEDS ORDERED: POTASSIUM CHLORIDE RIDER 10 MEQ in PREMIX 1 EACH IV PRN (01:33)
[2017-05-30] MEDS ORDERED: DOCUSATE SODIUM 100 MG CAPSULE PO PRN (01:33)
[2017-05-30] MEDS ORDERED: ZALEPLON 5 MG CAPSULE PO PRN (01:33)
[2017-05-30] MEDS ORDERED: MAGNESIUM SULF RIDER 2 GM in PREMIX 1 EACH IV PRN (01:33)
[2017-05-30] MEDS ORDERED: ONDANSETRON 4 MG/2 ML VIAL IV PRN (01:33)
[2017-05-30] MEDS ORDERED: MAGNESIUM SULF RIDER 4 GM in PREMIX 1 EACH IV PRN (01:33)
[2017-05-30 01:52] LABS: Basophils % 0.3 % (0.0-0.8); Eosinophils # 0.3 10*3/uL (0.0-0.87); Eosinophils % 7.9 % (0.00-10.9); Hematocrit 28.1 VOL% (35.7-47.0); Hemoglobin 8.8 GM/DL (12.0-16.0); Immature Granulocytes % 0.6 %; Immature Granulocytes Absolute 0.02 #; Lymphocytes # 0.9 10*3/uL (1.4-4.0); Lymphocytes % 24.4 % (21.3-54.2); Mean Corpuscular HGB Conc 31.3 GM/DL (32-36); Mean Corpuscular Hemoglobin 31 PG (27-34); Mean Corpuscular Volume 100.4 FL (87-102); Mean Platelet Volume 10.8 FL (9.6-12.0); Monocytes # 0.4 10*3/uL (0.11-0.8); Monocytes % 11.3 % (1.7-12.7); Neutrophils % 55.5 % (38.7-73.9); Platelet Count 119 T/CUMM (130-400); Red Cell Distribution Width 15.7 % (9.3-17.3); White Blood Count 3.5 T/CUMM (4-12)
[2017-05-30 02:26] LABS: Albumin 3.4 G/DL (3.4-5.0); Bilirubin,Total 0.5 MG/DL (0.2-1.0); Calcium 9.5 MG/DL (8.5-10.1); Magnesium 2.6 MG/DL (1.8-2.4); Osmolality,Calculated 294.1 MOS/KG (273-304); Potassium 5.3 MMOL/L (3.5-5.1); Total Protein 6.4 G/DL (6.4-8.3)
[2017-05-30 02:34] LABS: Troponin I Only 0.055 NG/ML (0.00-0.045)
[2017-05-30 02:59] LABS: Apearance,Urine Slightly Hazy (Clear); Bilirubin,Urine Negative (Negative); Blood, Urine Small mg/dL (Negative); Glucose,Urine (UA) Negative (Negative); Hyaline Casts,Urine 1 /LPF (0-3); Ketones,Urine Negative (Negative); Nitrite,Urine Negative (Negative); Protein,Urine 30 MG/DL; RBC,Urine 3 /HPF (0-4); Squamous Epithelial Cell,Urine Occasional /HPF (0-10); Urine Color Yellow (Yellow); Urine Specific Gravity 1.009 (1.001-1.035); Urine Urobilinogen < 2.0 EU/DL (0.2-1.0); WBC,Urine 2 /HPF (0-6)
[2017-05-30] MEDS ORDERED: PANTOPRAZOLE 40 MG TABLET PO SCH (09:00)
[2017-05-30] MEDS ORDERED: INFLUENZA VIRUS VACCINE 0.5 ML SYRINGE IM ONE (09:00)
[2017-05-30] MEDS ORDERED: FUROSEMIDE 40 MG/4 ML VIAL IV ONE (11:21)
[2017-05-30] MEDS ORDERED: HEPARIN/NACL 0.9% 2 UNITS/ML 500 ML IV ONE ×3 (11:42→12:51)
[2017-05-30] MEDS ORDERED: LIDOCAINE 1% 20 ML VIAL ONE (11:42)
[2017-05-30] MEDS ORDERED: ceFAZolin 1,000 MG VIAL ONE (12:26)
[2017-05-30] MEDS ORDERED: PROPOFOL 200 MG/20 ML VIAL IV ONE (14:41)
[2017-05-30] MEDS ORDERED: SEVOFLURANE 1 UNIT/15 MINUTE INH ONE (14:41)
[2017-05-30] MEDS ORDERED: HEPARIN 10,000 UNIT/10 ML VIAL ONE (14:41)
[2017-05-30] MEDS ORDERED: MIDAZOLAM 2 MG/2 ML VIAL ONE (14:42)
[2017-05-30] MEDS ORDERED: fentaNYL 100 MCG/2 ML VIAL ONE (14:42)
[2017-05-30] MEDS ORDERED: ETOMIDATE 20 MG/10 ML VIAL IV ONE (14:42)
[2017-05-30] MEDS ORDERED: SODIUM CHLORIDE 0.9% 250 ML IV ONE (14:43)
[2017-05-30] MEDS ORDERED: ROCURONIUM 100 MG/10 ML VIAL IV ONE (14:43)
[2017-05-30] MEDS ORDERED: SODIUM CHLORIDE 0.9% 1,000 ML IV ONE (14:43)
[2017-05-30] MEDS ORDERED: KETAMINE 500 MG/10 ML VIAL ONE (14:44)
[2017-05-30] MEDS ORDERED: ALBUTEROL INHALER 8 GM INH ONE (14:46)
[2017-05-30 14:50] LABS: ABG Base Excess -0.3 MMOL/L (-2.5-2.5); ABG HCO3 24.2 MMOL/L (20-26); ABG Oxygen Saturation 99.6 % (95-100); ABG PH 7.358 (7.35-7.45); ABG TCO2 23.5 MMOL/L (23-27); Allen Test Positive; Pt O2 Delivery Device Ventilator
[2017-05-30] MEDS: DOCUSATE SODIUM 100 MG CAPSULE PO SCH ×2 (15:07→20:50)
[2017-05-30] MEDS: FLUTICASONE 50 MCG NASAL SPRAY 16 GM BOTTLE BOTH NARES SCH (15:07)
[2017-05-30] MEDS: FERROUS SULFATE 325 MG TABLET PO SCH ×2 (15:07→20:50)
[2017-05-30] MEDS: METOCLOPRAMIDE 5 MG TABLET PO SCH ×2 (15:07→19:16)
[2017-05-30] MEDS: PROPOFOL 1,000 MG/100 ML BOTTLE IV SCH ×2 (15:08→20:49)
[2017-05-30] MEDS: ALLOPURINOL 300 MG TABLET PO SCH (19:15)
[2017-05-30] MEDS: ALPRAZolam 0.25 MG TABLET PO PRN (20:49)
[2017-05-30] MEDS: MONTELUKAST 10 MG TABLET PO SCH (20:50)
[2017-05-31] MEDS: PROPOFOL 1,000 MG/100 ML BOTTLE IV SCH ×4 (01:25→13:18)
[2017-05-31 05:15] LABS: Basophils % 0.3 % (0.0-0.8); Eosinophils # 0.2 10*3/uL (0.0-0.87); Eosinophils % 6.2 % (0.00-10.9); Hematocrit 24.7 VOL% (35.7-47.0); Hemoglobin 8.1 GM/DL (12.0-16.0); Immature Granulocytes % 0.3 %; Immature Granulocytes Absolute 0.01 #; Lymphocytes # 0.9 10*3/uL (1.4-4.0); Lymphocytes % 25.6 % (21.3-54.2); Mean Corpuscular HGB Conc 32.8 GM/DL (32-36); Mean Corpuscular Hemoglobin 32 PG (27-34); Mean Corpuscular Volume 96.1 FL (87-102); Monocytes # 0.5 10*3/uL (0.11-0.8); Monocytes % 12.6 % (1.7-12.7); Platelet Count 118 T/CUMM (130-400); Red Blood Count 2.57 MC/CUMM (3.8-5.5); Red Cell Distribution Width 15.2 % (9.3-17.3); White Blood Count 3.6 T/CUMM (4-12)
[2017-05-31 05:48] LABS: Calcium 8.8 MG/DL (8.5-10.1); Magnesium 2.5 MG/DL (1.8-2.4); Potassium 4.7 MMOL/L (3.5-5.1)
[2017-05-31] MEDS: FERROUS SULFATE 325 MG TABLET PO SCH ×2 (08:28→21:05)
[2017-05-31] MEDS: ALPRAZolam 0.25 MG TABLET PO PRN ×3 (08:28→23:13)
[2017-05-31] MEDS: ALLOPURINOL 300 MG TABLET PO SCH (08:29)
[2017-05-31] MEDS: DOCUSATE SODIUM 100 MG CAPSULE PO SCH ×2 (08:29→21:05)
[2017-05-31] MEDS: PANTOPRAZOLE 40 MG VIAL IV SCH (08:29)
[2017-05-31] MEDS: METOCLOPRAMIDE 5 MG TABLET PO SCH ×3 (08:29→16:08)
[2017-05-31] MEDS: FLUTICASONE 50 MCG NASAL SPRAY 16 GM BOTTLE BOTH NARES SCH (08:29)
[2017-05-31 09:49] LABS: ABG HCO3 23.5 MMOL/L (20-26); ABG Oxygen Saturation 97.5 % (95-100); ABG PCO2 54.9 MM HG (35-48); ABG PH 7.285 (7.35-7.45); ABG TCO2 24.5 MMOL/L (23-27); Allen Test Positive; Pt O2 Delivery Device Ventilator
[2017-05-31] MEDS: MONTELUKAST 10 MG TABLET PO SCH (21:05)
[2017-06-01 05:19] LABS: Basophils % 0.4 % (0.0-0.8); Eosinophils # 0.1 10*3/uL (0.0-0.87); Eosinophils % 1.5 % (0.00-10.9); Hematocrit 25.4 VOL% (35.7-47.0); Hemoglobin 8.1 GM/DL (12.0-16.0); Lymphocytes # 0.8 10*3/uL (1.4-4.0); Lymphocytes % 18.2 % (21.3-54.2); Mean Corpuscular HGB Conc 31.9 GM/DL (32-36); Mean Corpuscular Hemoglobin 31 PG (27-34); Mean Corpuscular Volume 98.4 FL (87-102); Mean Platelet Volume 11.6 FL (9.6-12.0); Monocytes # 0.5 10*3/uL (0.11-0.8); Monocytes % 10.7 % (1.7-12.7); Neutrophils # 3.2 10*3/uL (1.4-7.4); Neutrophils % 69.2 % (38.7-73.9); Platelet Count 120 T/CUMM (130-400); Red Blood Count 2.58 MC/CUMM (3.8-5.5); Red Cell Distribution Width 15.4 % (9.3-17.3); White Blood Count 4.6 T/CUMM (4-12)
[2017-06-01 05:52] LABS: Calcium 8.8 MG/DL (8.5-10.1); Magnesium 2.6 MG/DL (1.8-2.4); Osmolality,Calculated 292.3 MOS/KG (273-304); Potassium 4.9 MMOL/L (3.5-5.1)
[2017-06-01] MEDS: DOCUSATE SODIUM 100 MG CAPSULE PO SCH (08:04)
[2017-06-01] MEDS: PANTOPRAZOLE 40 MG VIAL IV SCH (08:04)
[2017-06-01] MEDS: METOCLOPRAMIDE 5 MG TABLET PO SCH ×3 (08:04→15:30)
[2017-06-01] MEDS: ALLOPURINOL 300 MG TABLET PO SCH (08:04)
[2017-06-01] MEDS: FERROUS SULFATE 325 MG TABLET PO SCH ×2 (08:04→21:35)
[2017-06-01] MEDS: FLUTICASONE 50 MCG NASAL SPRAY 16 GM BOTTLE BOTH NARES SCH (08:20)
[2017-06-01] MEDS: NYSTATIN CREAM 15 GM TUBE TOP SCH ×2 (11:00→21:35)
[2017-06-01] MEDS: CARVEDILOL 3.125 MG TABLET PO SCH (21:34)
[2017-06-01] MEDS: MONTELUKAST 10 MG TABLET PO SCH (21:35)
[2017-06-02 04:24] LABS: Basophils % 0.3 % (0.0-0.8); Eosinophils # 0.1 10*3/uL (0.0-0.87); Eosinophils % 3.6 % (0.00-10.9); Hematocrit 25.3 VOL% (35.7-47.0); Hemoglobin 7.8 GM/DL (12.0-16.0); Immature Granulocytes % 0.3 %; Immature Granulocytes Absolute 0.01 #; Lymphocytes # 0.8 10*3/uL (1.4-4.0); Lymphocytes % 20.7 % (21.3-54.2); Mean Corpuscular HGB Conc 30.8 GM/DL (32-36); Mean Corpuscular Hemoglobin 31 PG (27-34); Mean Corpuscular Volume 99.6 FL (87-102); Mean Platelet Volume 11.1 FL (9.6-12.0); Monocytes # 0.5 10*3/uL (0.11-0.8); Monocytes % 12.4 % (1.7-12.7); Neutrophils # 2.3 10*3/uL (1.4-7.4); Neutrophils % 62.7 % (38.7-73.9); Platelet Count 110 T/CUMM (130-400); Red Blood Count 2.54 MC/CUMM (3.8-5.5); Red Cell Distribution Width 15.6 % (9.3-17.3); White Blood Count 3.6 T/CUMM (4-12)
[2017-06-02 05:11] LABS: Calcium 8.9 MG/DL (8.5-10.1); Magnesium 2.6 MG/DL (1.8-2.4); Potassium 5.1 MMOL/L (3.5-5.1)
[2017-06-02] MEDS: METOCLOPRAMIDE 5 MG TABLET PO SCH ×2 (08:37→12:10)
[2017-06-02] MEDS: FLUTICASONE 50 MCG NASAL SPRAY 16 GM BOTTLE BOTH NARES SCH (08:38)
[2017-06-02] MEDS: FERROUS SULFATE 325 MG TABLET PO SCH (08:38)
[2017-06-02] MEDS: ALLOPURINOL 300 MG TABLET PO SCH (08:38)
[2017-06-02] MEDS: PANTOPRAZOLE 40 MG VIAL IV SCH (08:38)
[2017-06-02] MEDS: CARVEDILOL 3.125 MG TABLET PO SCH (08:38)
[2017-06-02] MEDS: NYSTATIN CREAM 15 GM TUBE TOP SCH (08:39)
[2017-06-02] MEDS ORDERED: POLYETHYLENE GLYCOL POWDER 17 GM PACK PO PRN (11:19)
[2017-06-02] MEDS ORDERED: POLYETHYLENE GLYCOL POWDER 17 GM PACK PO SCH (11:30)
[2017-06-02] MEDS ORDERED: INFLUENZA VIRUS VACCINE 0.5 ML SYRINGE IM ONE (12:00)
[2017-06-02 14:17] VITALS: BP 116/53
== END 2017-06-02 16:21 | disposition home or self-care (01) | DRG 229 ==
LOC: N.CC 05-30 01:06
PROVIDERS: ADMIT Internal Medicine Clinical Cardiac Electrophysiology; ATTEND Internal Medicine Clinical Cardiac Electrophysiology
PROC: CLMICRA (2017-05-30 11:15)